=== PATIENT | female | born 1950 | race Caucasian/White ===

== ENCOUNTER 2021-09-16 18:31 | Emergency (ER) | payer MEDICARE, MEDICAID ==
[~2021-09-16] VITALS: Ht 165.1 cm; Wt 56.7 kg
[~2021-09-16 18:31] MED LIST: ASPI-630 PO; ATOR20TA58 PO; HYDR12.575 PO; LISI20TA18 PO; PANT40TA77 PO
--- NOTE | 2021-09-16 18:45 | PHYS DOC ---
Past Medical History Past Medical History: Diverticulitis, High Cholesterol, Hypertension Past Surgical History: Appendectomy, Cholecystectomy, Hysterectomy Smoking Status: Current Every Day Smoker Alcohol Use: None General Adult EDM: Chief Complaint: ABDOMINAL PAIN HPI: HPI: Patient is a 70 year old that has had lower abdominal pain off and on since April 2021. She was admitted at the end of June 2021, had a relatively lengthy inpatient stay for perforated diverticulitis. She was discharged in early to mid July. Pelvic abscess was noted on CT imaging at that time. She was treated conservatively with antibiotics. She was discharged in stable condition, per the notes. She saw general surgery while she was here. She has subsequently followed up with the nurse practitioner at her primary care physician's office, who is reportedly been "managing" all of the subsequent abdominal pain issues. The patient noticed brown, feculent vaginal discharge in July. She reports that the nurse practitioner "swabbed the fluid" and it returned as E. coli. The patient was subsequently referred to gastroenterology services, she does not have an appointment until mid late September for this. She was not referred to general surgery. 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 The patient admits that she is very confused about all of this. 2 days ago, she was prescribed oral vancomycin and oral clindamycin. She has not been referred to gynecology or general surgery services. She denies any fevers or chills. She denies any active or severe pain at present. She reports intermittent nausea and vomiting symptoms, none of which have been present for the past week or so. She reports multiple, soft stools, no diarrhea. No melena or hematochezia. She denies urinary symptoms. She denies chest pain, cough, dyspnea, dizziness, syncope, fall, focal weakness. She has had multiple previous abdominal surgeries including cholecystectomy, appendectomy, hysterectomy and oophorectomy. Review of Systems: Review of Systems: Constitutional: Denies fever or chills. Reports > 60 lb weight loss in the last 10-11 months. Eyes: Denies change in visual acuity. [] HENT: Denies nasal congestion or sore throat. [] Respiratory: Denies cough or shortness of breath. [] Cardiovascular: Denies chest pain or edema. [] GI: Abdominal pain, frequent soft stool, denies nausea and vomiting recently; denies melena, hematochezia, denies history of hematemesis : Denies urinary symptoms. Reports brown vaginal discharge. Musculoskeletal: Denies back pain or joint pain. [] Integument: Denies rash. [] Neurologic: Denies headache, focal weakness or sensory changes. [] Psychiatric: Denies depression or anxiety. [] Heart Score: C/O Chest Pain: No Risk Factors: Risk Factors: DM, Current or recent (<one month) smoker, HTN, HLP, family history of CAD, obesity. Risk Scores: Score 0 - 3: 2.5% MACE over next 6 weeks - Discharge Home Score 4 - 6: 20.3% MACE over next 6 weeks - Admit for Clinical Observation Score 7 - 10: 72.7% MACE over next 6 weeks - Early Invasive Strategies Allergies: Allergies: Allergies Coded Allergies Type Severity Reaction Last Updated Verified codeine Adverse Reaction Intermediate abdominal pain 07/20/21 Yes Physical Exam: PE: Constitutional: She is relatively frail appearing, appears slightly older than stated age, no acute distress, non-toxic appearance. [] HENT: Normocephalic, atraumatic, oropharynx patent and clear, mucous membranes moist Eyes: No conjunctival pallor, no scleral icterus no discharge. [] Neck: Normal range of motion, no tenderness, supple, no stridor. [] Cardiovascular:Heart rate regular rhythm, was 2 radial and +2 posterior tibial pulses bilaterally. No peripheral edema, no cyanosis Lungs & Thorax: Bilateral breath sounds clear to auscultation, no rales, rhonchi or wheezes. Equal chest rise. No evidence of chest wall trauma. Abdomen: Abdomen is soft, nondistended, normal bowel sounds, no focal tenderness to palpation, no palpable mass organomegaly, no flank abdominal ecchymoses, no CVA tenderness, no palpable pulsatile mass, no audible bruit. Skin: Warm, dry, no erythema, no rash. Jaundice. Back: No tenderness, no CVA tenderness. [] Extremities: No tenderness, no cyanosis, no clubbing, ROM intact, no edema. No calf tenderness. Neurologic: Alert and oriented X 3, normal motor function, normal sensory fun ction, no focal deficits noted. [] Psychologic: Mildly anxious, cooperative and pleasant Current Patient Data: Vital Signs: Vital Signs Date Time Temp Pulse Resp B/P (MAP) Pulse Ox O2 Delivery O2 Flow Rate FiO2 09/16/21 18:36 98.2 87 22 223/97 (139) 99 Room Air 98.2 EKG: EKG: [] Radiology/Procedures: Radiology/Procedures: IMAGING REPORT Signed PATIENT: SUZAN CATES ACCOUNT: [id number] : 1950 LOCATION: ER AGE: 70 SEX: F EXAM STATUS: REG ER ORD. PHYSICIAN: TYRONE MUELLER DO REASON: abdominal pain, hx of perf diverticulitis and abscess PROCEDURE: CT ABD PELV W/ IV CONTRST ONLY Exam: CT of abdomen and pelvis with contrast INDICATION: Abdominal pain, history of perforated diverticulitis and abscess TECHNIQUE: Sequential axial images through the abdomen and pelvis obtained following the administration of 75 mL of Isovue-370 IV contrast. Sagittal and coronal reformatted images were reconstructed from the axial data and reviewed. Exposure: One or more of the following in the visualized dose reduction techniques were utilized for this examination: 1. Automated exposure control 2. Adjustment of the MA and/or KV according to patient size 3. Use of iterative of reconstructive technique Comparisons: 08/02/2021 FINDINGS: Heart size is normal. No pericardial effusion. Visualized lung bases are clear. No pleural effusion. Liver, spleen, pancreas, and adrenals are unremarkable. Gallbladder surgically absent. No perinephric inflammation or hydronephrosis. No renal or ureteral calculi are identified. Bladder is partially distended and not well evaluated. Uterus is absent. No abnormal adnexal mass. There is diffuse wall thickening at the sigmoid colon with effacement of adjacent fat planes. Moderate amount stool throughout the colon. Appendix is not identified. Small bowel is unremarkable. No free intra- abdominal air or fluid. No obstruction. Abdominal aorta has a normal course and caliber. Abdominal vascular is patent. No enlarged intra-abdominal lymph nodes are identified. No suspicious osseous lesions or acute fractures. IMPRESSION: Diffuse wall thickening at the sigmoid colon with effacement of adjacent fat planes. Discrete adjacent fluid collection is not identified. Findings favored t o represent colitis. Appearance is is not significantly changed when compared to the study on 08/02/2021 Electronically signed by: Savi Santana MD (09/16/2021 8:43 PM) [facility] DICTATED and SIGNED BY: SAVI SANTANA MD DATE: 09/16/[id number] 0 Course & Med Decision Making: Course & Med Decision Making Pertinent Labs and Imaging studies reviewed. (See chart for details) The patient has been resting comfortably, declined pain medication, she has no pain. Declined antimedics because she is not nauseated. She is a benign, nonsurgical abdominal exam. I am unable to elicit any tenderness on exam at all. Emergency department work-up is remarkable only for mild hypokalemia, she is given oral potassium replacement. CT shows possible colitis, no evidence of abnormal fluid collection, abscess, free air. No description of fistula is made. I went through the PACS system to try to find any CT imaging studies or ultrasound studies she may have had last week, she claimed that she did, I unable to find any. I believe that she most likely did have outpatient imaging study, though it is not currently available in the system. I did explain this to her. I strongly encouraged her to talk with the physician in the office regarding all of her issues. She has previously been seen by general surgery here, I gave her the information for each of the general surgeons here at this facility. I encouraged her to call tomorrow to discuss outpatient follow-up. I also told her to follow-up with gynecology. She may certainly keep her scheduled appointment with GI next month. Currently, there is no indication for further invasive exams, imaging or emergent admission, based on current clinical presentation. She expresses disappointment regarding this. I believe she wishes to expedite the process of consultation, though I explained that if there is no emergency requirement for consultation, it will not be done. I did discuss very strict return precautions with her. She verbalizes understanding. She is discharged in stable condition Dragon Disclaimer: aNtaly Disclaimer: This electronic medical record was generated, in whole or in part, using a voice recognition dictation system. Departure Departure Impression: Primary Impression: Lower abdominal pain Additional Impressions: History of diverticulitis Hypokalemia Disposition: HOME / SELF CARE / HOMELESS Condition: STABLE Referrals: MARCUS GAMIGN MD (PCP) NU ASTORGA MD, STEPHEN J MD PEGHEE, DONALD G Jr. MD WILDER, THOMAS W MD Patient Instructions: Abdominal Pain (Nonspecific) Additional Instructions: Please return to the ER for severe abdominal pain, uncontrolled vomiting, dehydration, if you notice bloody stools, if you notice increase in vaginal disc harge, if you develop a temperature 100.4 or higher, or for any other concerns. Please follow-up with outpatient general surgery and gynecology services. You are provided with multiple doctors information. You may also keep your appointment with GI next month. I recommend you contact your physician at your doctor's office to discuss the differential diagnosis and your clinical condition further. TYRONE MUELLER DO Sep 16, 2021 18:45
[2021-09-16] MEDS ORDERED: IV NORMAL SALINE 1000ML BAG 1,000 ML IV ONE (19:00)
[2021-09-16 19:19] LABS: BASO % 1 % (0-3); EOS # 0.1 x10^3/uL (0.0-0.7); EOS % 1 % (0-3); HEMATOCRIT 29.7 % (36.0-47.0); HEMOGLOBIN 9.4 g/dL (12.0-15.5); LYMPH # 1.6 x10^3/uL (1.0-4.8); LYMPH % 20 % (24-48); MEAN CORPUSCULAR HEMOGLOBIN 23 pg (25-35); MEAN CORPUSCULAR HGB CONC 32 g/dL (31-37); MEAN CORPUSCULAR VOLUME 73 fL (79-100); MONO # 0.6 x10^3/uL (0.0-1.1); MONO % 7 % (0-9); NEUT # 6.1 x10^3/uL (1.8-7.7); NEUT % 72 % (31-73); PLATELET COUNT 539 x10^3/uL (140-400); RED BLOOD COUNT 4.06 x10^6/uL (3.50-5.40); WHITE BLOOD COUNT 8.5 x10^3/uL (4.0-11.0)
[2021-09-16 19:35] LABS: ALBUMIN 2.7 g/dL (3.4-5.0); ALBUMIN/GLOBULIN RATIO 0.6 (1.0-1.7); CALCIUM 8.5 mg/dL (8.5-10.1); CREATININE 0.6 mg/dL (0.6-1.0); GFR 99.1; TOTAL BILIRUBIN 0.4 mg/dL (0.2-1.0)
[2021-09-16] MEDS ORDERED: IOHEXOL 300 MG/ML 100ML VIAL. IV ONE (19:45)
--- NOTE | 2021-09-16 20:45 | RAD ---
Exam: CT of abdomen and pelvis with contrast INDICATION: Abdominal pain, history of perforated diverticulitis and abscess TECHNIQUE: Sequential axial images through the abdomen and pelvis obtained following the administrati on of 75 mL of Isovue-370 IV contrast. Sagittal and coronal reformatted images were reconstructed fro m the axial data and reviewed. Exposure: One or more of the following in the visualized dose reduction techniques were utilized for this examination: 1. Automated exposure control 2. Adjustment of the MA and/or KV according to patient size 3. Use of iterative of reconstructive technique Comparisons: 08/02/2021 FINDINGS: Heart size is normal. No pericardial effusion. Visualized lung bases are clear. No pleural effusion. Liver, spleen, pancreas, and adrenals are unremarkable. Gallbladder surgically absent. No perinephric inflammation or hydronephrosis. No renal or ureteral calculi are identified. Bladder is partially distended and not well evaluated. Uterus is absent. No abnormal adnexal mass. Th ere is diffuse wall thickening at the sigmoid colon with effacement of adjacent fat planes. Moderate amount stool throughout the colon. Appendix is not identified. Small bowel is unremarkable. No free i ntra-abdominal air or fluid. No obstruction. Abdominal aorta has a normal course and caliber. Abdominal vascular is patent. No enlarged intra-abdominal lymph nodes are identified. No suspicious osseous lesions or acute fractures. IMPRESSION: Diffuse wall thickening at the sigmoid colon with effacement of adjacent fat planes. Discrete adjacen t fluid collection is not identified. Findings favored to represent colitis. Appearance is is not sig nificantly changed when compared to the study on 08/02/2021 Electronically signed by: Savi Lara MD (09/16/2021 8:43 PM) [facility]
[2021-09-16 21:07] LABS: BILIRUBIN,URINE NEGATIVE (NEG); CLARITY,URINE CLEAR; COLOR,URINE YELLOW; NITRITE,URINE NEGATIVE (NEG); PROTEIN,URINE NEGATIVE (NEG-TRACE)
[2021-09-16 21:08] LABS: BACTERIA,URINE 0 /HPF (0-FEW); RBC,URINE OCC /HPF (0-2); WBC,URINE OCC /HPF (0-4)
[2021-09-16] MEDS ORDERED: POTASSIUM CHLORIDE 20 MEQ TABLET.ER. PO ONE (21:30)
[2021-09-16 21:32] VITALS: BP 187/74
[2021-09-17] MEDS ORDERED: VANC125C3 PO (20:25)
[2021-09-17] MEDS ORDERED: CLIN-94 PO (20:25)
[2021-09-17] MEDS ORDERED: DOCU-109 PO (20:25)
[2021-09-17] MEDS ORDERED: ALBU2.5V8 IH (20:25)
[2021-09-17] MEDS ORDERED: HYDR-2868 PO (20:25)
[2021-09-17] MEDS ORDERED: POLY17PO29 PO (20:25)
[2021-09-17] MEDS ORDERED: BUDE10.2 IH (20:25)
== END 2021-09-16 21:42 | disposition home or self-care (01) ==
LOC: ER 18:31
DX: R10.30 Lower abdominal pain, unspecified (principal); E87.6 Hypokalemia; E78.00 Pure hypercholesterolemia, unspecified; I10 Essential (primary) hypertension; F17.200 Nicotine dependence, unspecified, uncomplicated; Z90.89 Acquired absence of other organs; Z90.49 Acquired absence of other specified parts of digestive tract; Z90.710 Acquired absence of both cervix and uterus; Z88.5 Allergy status to narcotic agent
CPT/HCPCS: 36415; 74177; 80053; 81001; 83605; 83690; 85025; 99285; J7030; Q9967

== ENCOUNTER 2021-09-17 18:06 | Inpatient (IN) | payer MEDICARE, MEDICAID ==
[~2021-09-17] VITALS: Ht 165.1 cm; Wt 58.1 kg
[2021-09-17 20:15] VITALS: BP 128/53
[2021-09-17] MEDS ORDERED: HYDR-2868 PO (20:25)
[2021-09-17] MEDS ORDERED: BUDE10.2 IH (20:25)
[2021-09-17] MEDS ORDERED: CLIN-94 PO (20:25)
[2021-09-17] MEDS ORDERED: DOCU-109 PO (20:25)
[2021-09-17] MEDS ORDERED: ALBU2.5V8 IH (20:25)
[2021-09-17] MEDS ORDERED: POLY17PO29 PO (20:25)
[2021-09-17] MEDS ORDERED: VANC125C3 PO (20:25)
[2021-09-17] MEDS ORDERED: PIP/TAZO PER PHARMACY MC PRN (20:30)
[2021-09-17] MEDS ORDERED: ALBUTEROL SULFATE 2.5 MG/3 ML NEBU. NEB PRN (20:30)
[2021-09-17] MEDS ORDERED: ACETAMINOPHEN 325 MG TABLET. PO PRN (20:45)
[2021-09-17] MEDS ORDERED: ALBUTEROL SULFATE 2.5 MG/3 ML NEBU. NEB SCH (21:00)
[2021-09-17] MEDS: BUDESONIDE 0.5 MG/2 ML NEBU. NEB SCH (21:40)
[2021-09-17] MEDS: PIPERACILLIN/TAZOBACTAM 3.375 GM in IV NORMAL SALINE 50ML 50 ML IV SCH (22:00)
[2021-09-17] MEDS: IV NORMAL SALINE 1000ML BAG 1,000 ML IV SCH (22:00)
[2021-09-17] MEDS: VANCOMYCIN 125 MG/2.5 ML ORAL SOLUTION. PO SCH (22:13)
[2021-09-17] MEDS: ATORVASTATIN CALCIUM 20 MG TABLET PO SCH (22:13)
[2021-09-17] MEDS: oxyCODONE/APAP 5/325 1 TAB TABLET PO PRN (22:18)
[2021-09-17 23:10] VITALS: BP 114/37
[2021-09-18] MEDS: PIPERACILLIN/TAZOBACTAM 3.375 GM in IV NORMAL SALINE 50ML 50 ML IV SCH ×3 (06:31→18:17)
[2021-09-18 07:00] VITALS: BP 140/38
[2021-09-18] MEDS: BUDESONIDE 0.5 MG/2 ML NEBU. NEB SCH ×2 (07:26→20:00)
[2021-09-18 07:36] LABS: BASO % 0 % (0-3); EOS # 0.2 x10^3/uL (0.0-0.7); EOS % 2 % (0-3); HEMATOCRIT 25.4 % (36.0-47.0); LYMPH # 1.2 x10^3/uL (1.0-4.8); LYMPH % 14 % (24-48); MEAN CORPUSCULAR HEMOGLOBIN 23 pg (25-35); MEAN CORPUSCULAR HGB CONC 32 g/dL (31-37); MEAN CORPUSCULAR VOLUME 74 fL (79-100); MONO # 0.7 x10^3/uL (0.0-1.1); MONO % 8 % (0-9); NEUT # 6.6 x10^3/uL (1.8-7.7); NEUT % 76 % (31-73); PLATELET COUNT 428 x10^3/uL (140-400); RED BLOOD COUNT 3.43 x10^6/uL (3.50-5.40); RED CELL DISTRIBUTION WIDTH 19.3 % (11.5-14.5); WHITE BLOOD COUNT 8.6 x10^3/uL (4.0-11.0)
[2021-09-18 08:00] LABS: ALBUMIN 2.1 g/dL (3.4-5.0); ALBUMIN/GLOBULIN RATIO 0.6 (1.0-1.7); CALCIUM 7.8 mg/dL (8.5-10.1); CREATININE 0.5 mg/dL (0.6-1.0); GFR 122.3; TOTAL BILIRUBIN 0.2 mg/dL (0.2-1.0); TOTAL PROTEIN 5.5 g/dL (6.4-8.2)
[2021-09-18 08:08] LABS: POTASSIUM 2.7 mmol/L (3.5-5.1)
[2021-09-18] MEDS: ASPIRIN CHEWABLE 81 MG TABLET. PO SCH (08:44)
[2021-09-18] MEDS: hydroCHLOROthiazide 12.5 MG CAPSULE PO SCH (08:44)
[2021-09-18] MEDS: hydrALAZINE 25 MG TABLET PO SCH (08:45)
[2021-09-18] MEDS: VANCOMYCIN 125 MG/2.5 ML ORAL SOLUTION. PO SCH ×4 (08:45→22:14)
[2021-09-18] MEDS: PANTOPRAZOLE 40 MG TABLET.DR. PO SCH (08:45)
[2021-09-18] MEDS: LISINOPRIL 20 MG TABLET PO SCH (08:45)
--- NOTE | 2021-09-18 08:47 | PDOC1 ---
History and Physical Date of Admission Date of Admission DATE: 09/18/21 TIME: 08:46 Source Source: Chart review, Patient History of Present Illness History of Present Illness Patient is a 70 year old that has had lower abdominal pain off and on since April 2021. She was admitted 07/21 to 08/03/21, , had a relatively lengthy inpatient stay for MICRO perforated diverticulitis. Pelvic abscess was noted on CT imaging at that time and treated with antibiotics. 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 4 days ago, she was prescribed oral vancomycin and oral clindamycin. Past Medical History Cardiovascular: HTN, Hyperlipidemia GI: Diverticulosis Hepatobiliary: No pertinent hx Psych: No pertinent hx Past Surgical History Past Surgical History She has had multiple previous abdominal surgeries including cholecystectomy, appendectomy, hysterectomy and oophorectomy. Past Surgical History: Other Family History Family History: No Significant, Other Social History Smoke: No ALCOHOL: none Drugs: None Current Medications Current Medications Current Medications Albuterol Sulfate (Ventolin Neb Soln) 2.5 mg PRN Q4HRS PRN NEB WHEEZING; Start 09/17/21 at 20:30; Stop 09/17/21 at 23:16; Status DC Aspirin (Aspirin Chewable) 81 mg DAILY PO Last administered on 09/18/21at 08:44; Start 09/18/21 at 09:00 Atorvastatin Calcium (Lipitor) 20 mg HS PO Last administered on 09/17/21at 22:13; Start 09/17/21 at 21:00 Hydralazine HCl (Apresoline) 25 mg DAILY PO Last administered on 09/18/21at 08:45; Start 09/18/21 at 09:00 Hydrochlorothiazide (Microzide) 12.5 mg DAILY PO Last administered on 09/18/21at 08:44; Start 09/18/21 at 09:00 Lisinopril (Prinivil) 20 mg DAILY PO Last administered on 09/18/21at 08:45; Start 09/18/21 at 09:00 Pantoprazole Sodium (Protonix) 40 mg DAILYAC PO Last administered on 09/18/21at 08:45; Start 09/18/21 at 07:30 Budesonide (Pulmicort) 0.5 mg RTBID NEB Last administered on 09/17/21at 21:40; Start 09/17/21 at 21:00 Vancomycin HCl (Vancomycin Oral Solution) 125 mg [id number] PO Last administered on 09/18/21at 08:45; Start 09/17/21 at 21:00 Ondansetron HCl (Zofran) 4 mg PRN Q6HRS PRN IVP NAUSEA/VOMITING; Start 09/17/21 at 20:30 Oxycodone/ Acetaminophen (Percocet 5/325) 1 tab PRN Q4HRS PRN PO MILD PAIN, 2nd CHOICE Last administered on 09/17/21at 22:18; Start 09/17/21 at 20:30 Oxycodone/ Acetaminophen (Percocet 5/325) 2 tab PRN Q4HRS PRN PO MODERATE PAIN, SEVERE PAIN; Start 09/17/21 at 20:30 Piperacillin Sod/ Tazobactam Sod (Zosyn Per Pharmacy) 1 each PRN DAILY PRN MC SEE COMMENTS; Start 09/17/21 at 20:30 Sodium Chloride 1,000 ml @ 75 mls/hr [id number] IV Last administered on 09/17/21at 22:00; Start 09/17/21 at 21:00 Acetaminophen (Tylenol) 650 mg PRN Q6HRS PRN PO MILD PAIN / TEMP > 100.3'F; Start 09/17/21 at 20:45 Albuterol Sulfate (Ventolin Neb Soln) 2.5 mg RTQID NEB Last administered on 08/25 12/12at 21:40; Start 09/17/21 at 21:00; Stop 09/17/21 at 23:16; Status DC Piperacillin Sod/ Tazobactam Sod 3.375 gm/Sodium Chloride 50 ml @ 100 mls/hr Q6HRS IV Last administered on 09/18/21at 06:31; Start 09/17/21 at 21:00 Potassium Chloride/Water 100 ml @ 100 mls/hr Q1H IV ; Start 09/18/21 at 08:45; Stop 09/18/21 at 10:44; Status UNV Magnesium Sulfate 50 ml @ 25 mls/hr 1X ONCE IV ; Start 09/18/21 at 08:45; Stop 09/18/21 at 10:44; Status UNV Active Scripts Active Pantoprazole Sodium (Pantoprazole Sodium) 40 Mg Tablet.dr 40 Mg PO DAILYAC 30 Days Reported Clindamycin Hcl 300 Mg Capsule 300 Mg PO TID Vancomycin Hcl 125 Mg Capsule 125 Mg PO QID Symbicort 160-4.5 Mcg Inhaler (Budesonide/Formoterol Fumarate) 10.2 Gm Hfa.aer.ad 2 Puff IH BID Proair Hfa Inhaler (Albuterol Sulfate) 8.5 Gm Hfa.aer.ad 2 Puff IH PRN Q4-6HRS PRN 21 Days Hydralazine Hcl 25 Mg Tablet 25 Mg PO DAILY Miralax (Polyethylene Glycol 3350) 17 Gm Powd.pack 1 Pkt PO DAILY Colace (Docusate Sodium) 100 Mg Capsule 1 Cap PO BID 15 Days Atorvastatin Calcium 20 Mg Tablet 20 Mg PO HS Hydrochlorothiazide Capsule (Hydrochlorothiazide) 12.5 Mg Capsule 12.5 Mg PO DAILY Lisinopril 20 Mg Tablet 20 Mg PO DAILY Aspirin 81 Mg Tab.chew 1 Tab PO DAILY Allergies Allergies: Coded Allergies: No Known Medication Allergies (Verified Allergy, Unknown, 09/17/21) codeine (Verified Adverse Reaction, Intermediate, abdominal pain, 07/20/21) ROS General: YES: Chills, Fatigue PSYCHOLOGICAL ROS: No: Anxiety, Behavioral Disorder, Concentration difficultie, Decreased libido, Depression, Disorientation, Hallucinations, Hostility, Irritablity, Memory difficulties, Mood Swings, Obsessive thoughts, Physical abuse, Sexual abuse, Sleep disturbances, Suicidal ideation, Other Eyes: No Blurry vision, No Decreased vision, No Double vision, No Dry eyes, No Excessive tearing, No Eye Pain, No Itchy Eyes, No Loss of vision, No Photophobia, No Scotomata, No Uses contacts, No Uses glasses, No Other HEENT: No: Heacaches, Visual Changes, Hearing change, Nasal congestion, Nasal discharge, Oral lesions, Sinus pain, Sore Throat, Epistaxis, Sneezing, Snoring, Tinnitus, Vertigo, Vocal changes, Other Respiratory: No: Cough, Hemoptysis, Orthopnea, Pleuritic Pain, Shortness of breath, SOB with excertion, Sputum Changes, Stridor, Tachypnea, Wheezing, Other Cardiovascular: No Chest Pain, No Palpitations, No Orthopnea, No Paroxysmal Noc. Dyspnea, No Edema, No Lt Headedness, No Other Gastrointestinal: Yes Nausea, Yes Abdominal Pain Genitourinary: YES Other (brown discharge from vagina); No Dysuria, No Frequency, No Incontinence, No Hematuria, No Retention, No Discharge, No Urgency, No Pain, No Flank Pain, No , No , No , No , No , No , No Musculoskeletal: No Gait Disturbance, No Joint Pain, No Joint Stiffness, No Joint Swelling, No Muscle Pain, No Muscular Weakness, No Pain In:, No Swelling In:, No Other Neurological: No Behavorial Changes, No Bowel/Bladder ControlChng, No Confusion, No Dizziness, No Gait Disturbance, No Headaches, No Impaired Coord/balance, No Memory Loss, No Numbness/Tingling, No Seizures, No Speech Problems, No Tremors, No Visual Changes, No Weakness, No Other Skin: Yes Dry Skin; No Eczema, No Hair Changes, No Lumps, No Mole Changes, No Mottling, No Nail Changes, No Pruritus, No Rash, No Skin Lesion Changes, No Other, No Acne Physical Exam General: Alert, Oriented X3, Cooperative, mild distress HEENT: PERRLA Abdomen: Soft (mild tender, ) Rectal Exam: not examined Extremities: No cyanosis, No edema, Normal pulses Skin: No significant lesion Neuro: Normal speech, Normal tone, Sensation intact Psych/Mental Status: Mental status NL, Mood NL Vitals Vitals Vital Signs Date Time Temp Pulse Resp B/P (MAP) Pulse Ox O2 Delivery O2 Flow Rate FiO2 09/18/21 08:45 67 140/38 09/17/21 23:10 98.8 14 94 Room Air 98.8 Labs Labs Laboratory Tests Test 09/18/21 06:30 White Blood Count 8.6 x10^3/uL (4.0-11.0) Red Blood Count 3.43 x10^6/uL (3.50-5.40) Hemoglobin 8.0 g/dL (12.0-15.5) Hematocrit 25.4 % (36.0-47.0) Mean Corpuscular Volume 74 fL (79-100) Mean Corpuscular Hemoglobin 23 pg (25-35) Mean Corpuscular Hemoglobin Concent 32 g/dL (31-37) Red Cell Distribution Width 19.3 % (11.5-14.5) Platelet Count 428 x10^3/uL (140-400) Neutrophils (%) (Auto) 76 % (31-73) Lymphocytes (%) (Auto) 14 % (24-48) Monocytes (%) (Auto) 8 % (0-9) Eosinophils (%) (Auto) 2 % (0-3) Basophils (%) (Auto) 0 % (0-3) Neutrophils # (Auto) 6.6 x10^3/uL (1.8-7.7) Lymphocytes # (Auto) 1.2 x10^3/uL (1.0-4.8) Monocytes # (Auto) 0.7 x10^3/uL (0.0-1.1) Eosinophils # (Auto) 0.2 x10^3/uL (0.0-0.7) Basophils # (Auto) 0.0 x10^3/uL (0.0-0.2) Sodium Level 145 mmol/L (136-145) Potassium Level 2.7 mmol/L (3.5-5.1) Chloride Level 108 mmol/L (98-107) Carbon Dioxide Level 28 mmol/L (21-32) Anion Gap 9 (6-14) Blood Urea Nitrogen 6 mg/dL (7-20) Creatinine 0.5 mg/dL (0.6-1.0) Estimated GFR (Cockcroft-Gault) 122.3 BUN/Creatinine Ratio 12 (6-20) Glucose Level 76 mg/dL (70-99) Calcium Level 7.8 mg/dL (8.5-10.1) Total Bilirubin 0.2 mg/dL (0.2-1.0) Aspartate Amino Transf (AST/SGOT) 11 U/L (15-37) Alanine Aminotransferase (ALT/SGPT) 8 U/L (14-59) Alkaline Phosphatase 82 U/L (46-116) Total Protein 5.5 g/dL (6.4-8.2) Albumin 2.1 g/dL (3.4-5.0) Albumin/Globulin Ratio 0.6 (1.0-1.7) Laboratory Tests Test 09/18/21 06:30 White Blood Count 8.6 x10^3/uL (4.0-11.0) Red Blood Count 3.43 x10^6/uL (3.50-5.40) Hemoglobin 8.0 g/dL (12.0-15.5) Hematocrit 25.4 % (36.0-47.0) Mean Corpuscular Volume 74 fL (79-100) Mean Corpuscular Hemoglobin 23 pg (25-35) Mean Corpuscular Hemoglobin Concent 32 g/dL (31-37) Red Cell Distribution Width 19.3 % (11.5-14.5) Platelet Count 428 x10^3/uL (140-400) Neutrophils (%) (Auto) 76 % (31-73) Lymphocytes (%) (Auto) 14 % (24-48) Monocytes (%) (Auto) 8 % (0-9) Eosinophils (%) (Auto) 2 % (0-3) Basophils (%) (Auto) 0 % (0-3) Neutrophils # (Auto) 6.6 x10^3/uL (1.8-7.7) Lymphocytes # (Auto) 1.2 x10^3/uL (1.0-4.8) Monocytes # (Auto) 0.7 x10^3/uL (0.0-1.1) Eosinophils # (Auto) 0.2 x10^3/uL (0.0-0.7) Basophils # (Auto) 0.0 x10^3/uL (0.0-0.2) Sodium Level 145 mmol/L (136-145) Potassium Level 2.7 mmol/L (3.5-5.1) Chloride Level 108 mmol/L (98-107) Carbon Dioxide Level 28 mmol/L (21-32) Anion Gap 9 (6-14) Blood Urea Nitrogen 6 mg/dL (7-20) Creatinine 0.5 mg/dL (0.6-1.0) Estimated GFR (Cockcroft-Gault) 122.3 BUN/Creatinine Ratio 12 (6-20) Glucose Level 76 mg/dL (70-99) Calcium Level 7.8 mg/dL (8.5-10.1) Total Bilirubin 0.2 mg/dL (0.2-1.0) Aspartate Amino Transf (AST/SGOT) 11 U/L (15-37) Alanine Aminotransferase (ALT/SGPT) 8 U/L (14-59) Alkaline Phosphatase 82 U/L (46-116) Total Protein 5.5 g/dL (6.4-8.2) Albumin 2.1 g/dL (3.4-5.0) Albumin/Globulin Ratio 0.6 (1.0-1.7) VTE Prophylaxis Ordered VTE Prophylaxis Devices: No VTE Pharmacological Prophylaxi: Yes Assessment/Plan Assessment/Plan CT scan 09/16 Diffuse wall thickening at the sigmoid colon with effacement of adjacent fat planes. Discrete adjacent fluid collection is not identified. Findings favored to represent colitis. Appearance is is not significantly changed when compared to the study on 08/02/2021 Acute abdominal pain secondary to diverticulitis with microperforation Microcytic anemia - not DEWAYNE Hypokalemia - due to poor po Severe protein calorie malnutrition - likely due to diverticulitis HLD - HTN - General surgery consult, automated manufacturing instructor consult IV abx Justifications for Admission Other Justification Perforated diverticulitis CHRIS ROLLE MD Sep 18, 2021 08:47
[2021-09-18] MEDS: oxyCODONE/APAP 5/325 1 TAB TABLET PO PRN ×4 (08:49→20:49)
[2021-09-18] MEDS ORDERED: MAGNESIUM SULFATE 2GM 50 ML IV ONE (09:30)
[2021-09-18 11:00] VITALS: BP 121/32
[2021-09-18] MEDS: POTASSIUM CHLORIDE 10MEQ 100 ML IV SCH ×2 (11:18→13:22)
--- NOTE | 2021-09-18 11:22 | PDOC2 ---
CONSULT Date of Consult Date of Consult DATE: 09/18/21 TIME: 11:21 Reason for Consult Reason for Consult: possible fistula 70y G0 who was admitted for a possible fistula. The pt has lower abd pain on and off since 04/2021. Over the same period she has had a change her BMs, more loose. The pt was admitted at [facility] b/t 07/21-08/03 for abd pain 2/2 diverticulitis with microperforation. She was txed with IV abx and was d/nila. Since her d/c she has underwent multiple CT. On 08/10 she began to have brown d/c from her vagina. Initially they thought it was related to all the abx she was given during her hospital course, so she was given antifungal. The output only worsened over the course of a wk. When it was cultured by her PCP she reports that it returned as E. Coli. A CT performed on 09/13 revealed the followin. Increased along segment sigmoid colonic wall thickening with adjacent fat stranding and infiltration extending to adjacent thick-walled small bowel. Findings may relate to infectious or inflammatory colitis with fistulous claudication to adjacent small bowel. Recommend follow-up imaging and/or direct visualization after treatment to exclude underlying malignancy. 2. Small adjacent extraluminal gas concerning for contained microperforations. 3. Small fluid and gas collection anterior to the sigmoid colon, may represent small abscess or a component of fistula to small bowel. The pt was told after this finding by her PCP she needed to see doctors for this. She does not recall any referrals being made to this point. Also this CT does not illustrate a rectovaginal fistula, but looks like a connection b/t the small bowel and the sigmoid colon. It is likely with her multiple abd surgery and diverticulitis that she potentially could have more than one fistula. She has been on Vanc and Clinda. Her most recent CT on 09/16 revealed the following: Diffuse wall thickening at the sigmoid colon with effacement of adjacent fat planes. Discrete adjacent fluid collection is not identified. Findings favored to represent colitis. Appearance is not significantly changed when compared to the study on 08/02/2021. 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: LMP ~95 with KAN/BSO H/o ERT for ~5yrs (patch) Menarche 13yo / regular / menopause ~43yo SH: 1PPD, no EtOH FH: noncontributory Past Medical History Cardiovascular: HTN, Hyperlipidemia GI: Diverticulosis Past Surgical History Past Surgical History: Other Family History Family History: Other Social History ALCOHOL: none Drugs: None Lives: Alone Current Medications Current Medications Current Medications Albuterol Sulfate (Ventolin Neb Soln) 2.5 mg PRN Q4HRS PRN NEB WHEEZING; Start 09/17/21 at 20:30; Stop 09/17/21 at 23:16; Status DC Aspirin (Aspirin Chewable) 81 mg DAILY PO Last administered on 09/18/21at 08:44; Start 09/18/21 at 09:00 Atorvastatin Calcium (Lipitor) 20 mg HS PO Last administered on 09/17/21at 22:13; Start 09/17/21 at 21:00 Hydralazine HCl (Apresoline) 25 mg DAILY PO Last administered on 09/18/21at 08:45; Start 09/18/21 at 09:00 Hydrochlorothiazide (Microzide) 12.5 mg DAILY PO Last administered on 09/18/21at 08:44; Start 09/18/21 at 09:00 Lisinopril (Prinivil) 20 mg DAILY PO Last administered on 09/18/21at 08:45; Start 09/18/21 at 09:00 Pantoprazole Sodium (Protonix) 40 mg DAILYAC PO Last administered on 09/18/21at 08:45; Start 09/18/21 at 07:30 Budesonide (Pulmicort) 0.5 mg RTBID NEB Last administered on 09/17/21at 21:40; Start 09/17/21 at 21:00 Vancomycin HCl (Vancomycin Oral Solution) 125 mg [id number] PO Last administered on 09/18/21at 08:45; Start 09/17/21 at 21:00 Ondansetron HCl (Zofran) 4 mg PRN Q6HRS PRN IVP NAUSEA/VOMITING; Start 09/17/21 at 20:30 Oxycodone/ Acetaminophen (Percocet 5/325) 1 tab PRN Q4HRS PRN PO MILD PAIN, 2nd CHOICE Last administered on 09/18/21at 08:49; Start 09/17/21 at 20:30 Oxycodone/ Acetaminophen (Percocet 5/325) 2 tab PRN Q4HRS PRN PO MODERATE PAIN, SEVERE PAIN; Start 09/17/21 at 20:30 Piperacillin Sod/ Tazobactam Sod (Zosyn Per Pharmacy) 1 each PRN DAILY PRN [facility] SEE COMMENTS; Start 09/17/21 at 20:30 Sodium Chloride 1,000 ml @ 75 mls/hr [id number] IV Last administered on 09/17/21at 22:00; Start 09/17/21 at 21:00 Acetaminophen (Tylenol) 650 mg PRN Q6HRS PRN PO MILD PAIN / TEMP > 100.3'F; Start 09/17/21 at 20:45 Albuterol Sulfate (Ventolin Neb Soln) 2.5 mg RTQID NEB Last administered on 09/17/21at 21:40; Start 09/17/21 at 21:00; Stop 09/17/21 at 23:16; Status DC Piperacillin Sod/ Tazobactam Sod 3.375 gm/Sodium Chloride 50 ml @ 100 mls/hr Q6HRS IV Last administered on 09/18/21at 06:31; Start 09/17/21 at 21:00 Potassium Chloride/Water 100 ml @ 100 mls/hr Q1H IV Last administered on 09/18/21at 11:18; Start 09/18/21 at 09:30; Stop 09/18/21 at 11:29 Magnesium Sulfate 50 ml @ 25 mls/hr 1X ONCE IV ; Start 09/18/21 at 09:30; Stop 09/18/21 at 11:29 Active Scripts Active Pantoprazole Sodium (Pantoprazole Sodium) 40 Mg Tablet.dr 40 Mg PO DAILYAC 30 Days Reported Clindamycin Hcl 300 Mg Capsule 300 Mg PO TID Vancomycin Hcl 125 Mg Capsule 125 Mg PO QID Symbicort 160-4.5 Mcg Inhaler (Budesonide/Formoterol Fumarate) 10.2 Gm Hfa.aer.ad 2 Puff IH BID Proair Hfa Inhaler (Albuterol Sulfate) 8.5 Gm Hfa.aer.ad 2 Puff IH PRN Q4-6HRS PRN 21 Days Hydralazine Hcl 25 Mg Tablet 25 Mg PO DAILY Miralax (Polyethylene Glycol 3350) 17 Gm Powd.pack 1 Pkt PO DAILY Colace (Docusate Sodium) 100 Mg Capsule 1 Cap PO BID 15 Days Atorvastatin Calcium 20 Mg Tablet 20 Mg PO HS Hydrochlorothiazide Capsule (Hydrochlorothiazide) 12.5 Mg Capsule 12.5 Mg PO DAILY Lisinopril 20 Mg Tablet 20 Mg PO DAILY Aspirin 81 Mg Tab.chew 1 Tab PO DAILY Allergies Allergies: Coded Allergies: No Known Medication Allergies (Verified Allergy, Unknown, 09/17/21) codeine (Verified Adverse Reaction, Intermediate, abdominal pain, 07/20/21) Physical Exam General: Alert, Oriented X3, Cooperative, No acute distress HEENT: PERRLA, Mucous membr. moist/pink Lungs: Clear to auscultation, Normal air movement Heart: Regular rate, Normal S1, Normal S2, No murmurs Abdomen: Normal bowel sounds, Soft, No tenderness, No hepatosplenomegaly, No masses Extremities: No clubbing, No cyanosis, No edema, Normal pulses, No tenderness/swelling Skin: No rashes, No breakdown Neuro: Normal gait, Normal speech, Normal tone, Sensation intact, Reflexes 2+ Psych/Mental Status: Mental status NL, Mood NL Vitals VITALS Vital Signs Date Time Temp Pulse Resp B/P (MAP) Pulse Ox O2 Delivery O2 Flow Rate FiO2 09/18/21 09:19 Room Air 09/18/21 08:45 67 140/38 09/18/21 07:00 98.6 20 94 98.6 Labs Labs Laboratory Tests Test 09/18/21 06:30 White Blood Count 8.6 x10^3/uL (4.0-11.0) Red Blood Count 3.43 x10^6/uL (3.50-5.40) Hemoglobin 8.0 g/dL (12.0-15.5) Hematocrit 25.4 % (36.0-47.0) Mean Corpuscular Volume 74 fL (79-100) Mean Corpuscular Hemoglobin 23 pg (25-35) Mean Corpuscular Hemoglobin Concent 32 g/dL (31-37) Red Cell Distribution Width 19.3 % (11.5-14.5) Platelet Count 428 x10^3/uL (140-400) Neutrophils (%) (Auto) 76 % (31-73) Lymphocytes (%) (Auto) 14 % (24-48) Monocytes (%) (Auto) 8 % (0-9) Eosinophils (%) (Auto) 2 % (0-3) Basophils (%) (Auto) 0 % (0-3) Neutrophils # (Auto) 6.6 x10^3/uL (1.8-7.7) Lymphocytes # (Auto) 1.2 x10^3/uL (1.0-4.8) Monocytes # (Auto) 0.7 x10^3/uL (0.0-1.1) Eosinophils # (Auto) 0.2 x10^3/uL (0.0-0.7) Basophils # (Auto) 0.0 x10^3/uL (0.0-0.2) Sodium Level 145 mmol/L (136-145) Potassium Level 2.7 mmol/L (3.5-5.1) Chloride Level 108 mmol/L (98-107) Carbon Dioxide Level 28 mmol/L (21-32) Anion Gap 9 (6-14) Blood Urea Nitrogen 6 mg/dL (7-20) Creatinine 0.5 mg/dL (0.6-1.0) Estimated GFR (Cockcroft-Gault) 122.3 BUN/Creatinine Ratio 12 (6-20) Glucose Level 76 mg/dL (70-99) Calcium Level 7.8 mg/dL (8.5-10.1) Iron Level 14 ug/dL (50-170) Total Iron Binding Capacity 184 ug/dL (250-450) Iron Saturation 8 % (15-34) Total Bilirubin 0.2 mg/dL (0.2-1.0) Aspartate Amino Transf (AST/SGOT) 11 U/L (15-37) Alanine Aminotransferase (ALT/SGPT) 8 U/L (14-59) Alkaline Phosphatase 82 U/L (46-116) Total Protein 5.5 g/dL (6.4-8.2) Albumin 2.1 g/dL (3.4-5.0) Albumin/Globulin Ratio 0.6 (1.0-1.7) Laboratory Tests Test 09/18/21 06:30 White Blood Count 8.6 x10^3/uL (4.0-11.0) Red Blood Count 3.43 x10^6/uL (3.50-5.40) Hemoglobin 8.0 g/dL (12.0-15.5) Hematocrit 25.4 % (36.0-47.0) Mean Corpuscular Volume 74 fL (79-100) Mean Corpuscular Hemoglobin 23 pg (25-35) Mean Corpuscular Hemoglobin Concent 32 g/dL (31-37) Red Cell Distribution Width 19.3 % (11.5-14.5) Platelet Count 428 x10^3/uL (140-400) Neutrophils (%) (Auto) 76 % (31-73) Lymphocytes (%) (Auto) 14 % (24-48) Monocytes (%) (Auto) 8 % (0-9) Eosinophils (%) (Auto) 2 % (0-3) Basophils (%) (Auto) 0 % (0-3) Neutrophils # (Auto) 6.6 x10^3/uL (1.8-7.7) Lymphocytes # (Auto) 1.2 x10^3/uL (1.0-4.8) Monocytes # (Auto) 0.7 x10^3/uL (0.0-1.1) Eosinophils # (Auto) 0.2 x10^3/uL (0.0-0.7) Basophils # (Auto) 0.0 x10^3/uL (0.0-0.2) Sodium Level 145 mmol/L (136-145) Potassium Level 2.7 mmol/L (3.5-5.1) Chloride Level 108 mmol/L (98-107) Carbon Dioxide Level 28 mmol/L (21-32) Anion Gap 9 (6-14) Blood Urea Nitrogen 6 mg/dL (7-20) Creatinine 0.5 mg/dL (0.6-1.0) Estimated GFR (Cockcroft-Gault) 122.3 BUN/Creatinine Ratio 12 (6-20) Glucose Level 76 mg/dL (70-99) Calcium Level 7.8 mg/dL (8.5-10.1) Iron Level 14 ug/dL (50-170) Total Iron Binding Capacity 184 ug/dL (250-450) Iron Saturation 8 % (15-34) Total Bilirubin 0.2 mg/dL (0.2-1.0) Aspartate Amino Transf (AST/SGOT) 11 U/L (15-37) Alanine Aminotransferase (ALT/SGPT) 8 U/L (14-59) Alkaline Phosphatase 82 U/L (46-116) Total Protein 5.5 g/dL (6.4-8.2) Albumin 2.1 g/dL (3.4-5.0) Albumin/Globulin Ratio 0.6 (1.0-1.7) Assessment/Plan Assessment/Plan Assessment: 70y G0 who was admitted for a possible fistula Recommendation: 1.) Rectovaginal fistula based on hx. May benefit from exam under anesthesia to help identify the location. Not demonstrated on imaging. Her h/o d iverticulosis and recent perf are risk factors for the fistula forming. For women with small fistulas and minimal symptoms, nonsurgical management is appropriate. Optimizing the patient's bowel function, particularly controlling diarrhea, is beneficial. However, for the majority of patients with anovaginal or rectovaginal fistulas, the symptoms are intolerable. Thus, surgical repair is indicated. Repair of a rectovaginal fistula would be outside my scope. If it can not be done my Gen Surg, she may need a referral to specialists like Urogyn or GynOnc. 2.) Potential other colonic fistula multiple abdominal surgery and diverticu litis potential causes. Has only been demonstrated on one imaging, but also the potential to be abscess. 3.) Diverticulosis recent hospitalization for microperforation. Does not seem to be causing any acute issues at this time. 4.) H/o KAN/BSO sounds like for benign 5.) H/o ERT 6.) HTN per primary team 7.) Tob use 8.) Will cont to follow MAXIMO MELGAR MD Sep 18, 2021 11:22
[2021-09-18] MEDS: IV NORMAL SALINE 1000ML BAG 1,000 ML IV SCH ×2 (13:22→23:40)
--- NOTE | 2021-09-18 14:52 | PDOC2 ---
CONSULT Date of Consult Date of Consult DATE: 09/18/21 TIME: 14:47 Reason for Consult Reason for Consult: colovaginal fistula, perforated diverticulitis Referring Physician Referring Physician: Dr. Hector Identification/Chief Complaint Chief Complaint abd pain, vaginal d/c Source Source: Chart review, Patient History of Present Illness Reason for Visit: 70 yo F with history of perforated diverticulitis, treated conservatively. Pt has developed lower abd pain and vaginal d/c. Past Medical History Cardiovascular: HTN, Hyperlipidemia GI: Diverticulosis Past Surgical History Past Surgical History: Appendectomy, Cholecystectomy, Hysterectomy, Other Family History Family History: Other Social History 1 pack per day ALCOHOL: none Drugs: None Lives: Alone Current Medications Current Medications Current Medications Albuterol Sulfate (Ventolin Neb Soln) 2.5 mg PRN Q4HRS PRN NEB WHEEZING; Start 09/17/21 at 20:30; Stop 09/17/21 at 23:16; Status DC Aspirin (Aspirin Chewable) 81 mg DAILY PO Last administered on 09/18/21at 08:44; Start 09/18/21 at 09:00 Atorvastatin Calcium (Lipitor) 20 mg HS PO Last administered on 09/17/21at 22:13; Start 09/17/21 at 21:00 Hydralazine HCl (Apresoline) 25 mg DAILY PO Last administered on 09/18/21at 08:45; Start 09/18/21 at 09:00 Hydrochlorothiazide (Microzide) 12.5 mg DAILY PO Last administered on 09/18/21at 08:44; Start 09/18/21 at 09:00 Lisinopril (Prinivil) 20 mg DAILY PO Last administered on 09/18/21at 08:45; Start 09/18/21 at 09:00 Pantoprazole Sodium (Protonix) 40 mg DAILYAC PO Last administered on 09/18/21at 08:45; Start 09/18/21 at 07:30 Budesonide (Pulmicort) 0.5 mg RTBID NEB Last administered on 09/17/21at 21:40; Start 09/17/21 at 21:00 Vancomycin HCl (Vancomycin Oral Solution) 125 mg [id number] PO Last administered on 09/18/21at 13:22; Start 09/17/21 at 21:00 Ondansetron HCl (Zofran) 4 mg PRN Q6HRS PRN IVP NAUSEA/VOMITING; Start 09/17/21 at 20:30 Oxycodone/ Acetaminophen (Percocet 5/325) 1 tab PRN Q4HRS PRN PO MILD PAIN, 2nd CHOICE Last administered on 09/18/21at 13:26; Start 09/17/21 at 20:30 Oxycodone/ Acetaminophen (Percocet 5/325) 2 tab PRN Q4HRS PRN PO MODERATE PAIN, SEVERE PAIN; Start 09/17/21 at 20:30 Piperacillin Sod/ Tazobactam Sod (Zosyn Per Pharmacy) 1 each PRN DAILY PRN MC SEE COMMENTS; Start 09/17/21 at 20:30 Sodium Chloride 1,000 ml @ 75 mls/hr [id number] IV Last administered on 09/18/21at 13:22; Start 09/17/21 at 21:00 Acetaminophen (Tylenol) 650 mg PRN Q6HRS PRN PO MILD PAIN / TEMP > 100.3'F; Start 09/17/21 at 20:45 Albuterol Sulfate (Ventolin Neb Soln) 2.5 mg RTQID NEB Last administered on at 21:40; Start 09/17/21 at 21:00; Stop 09/17/21 at 23:16; Status DC Piperacillin Sod/ Tazobactam Sod 3.375 gm/Sodium Chloride 50 ml @ 100 mls/hr Q6HRS IV Last administered on 09/18/21at 12:00; Start 09/17/21 at 21:00 Potassium Chloride/Water 100 ml @ 100 mls/hr Q1H IV Last administered on 09/18/21at 13:22; Start 09/18/21 at 09:30; Stop 09/18/21 at 11:29; Status DC Magnesium Sulfate 50 ml @ 25 mls/hr 1X ONCE IV ; Start 09/18/21 at 09:30; Stop 09/18/21 at 11:29; Status DC Active Scripts Active Pantoprazole Sodium (Pantoprazole Sodium) 40 Mg Tablet.dr 40 Mg PO DAILYAC 30 Days Reported Clindamycin Hcl 300 Mg Capsule 300 Mg PO TID Vancomycin Hcl 125 Mg Capsule 125 Mg PO QID Symbicort 160-4.5 Mcg Inhaler (Budesonide/Formoterol Fumarate) 10.2 Gm Hfa.aer.ad 2 Puff IH BID Proair Hfa Inhaler (Albuterol Sulfate) 8.5 Gm Hfa.aer.ad 2 Puff IH PRN Q4-6HRS PRN 21 Days Hydralazine Hcl 25 Mg Tablet 25 Mg PO DAILY Miralax (Polyethylene Glycol 3350) 17 Gm Powd.pack 1 Pkt PO DAILY Colace (Docusate Sodium) 100 Mg Capsule 1 Cap PO BID 15 Days Atorvastatin Calcium 20 Mg Tablet 20 Mg PO HS Hydrochlorothiazide Capsule (Hydrochlorothiazide) 12.5 Mg Capsule 12.5 Mg PO DAILY Lisinopril 20 Mg Tablet 20 Mg PO DAILY Aspirin 81 Mg Tab.chew 1 Tab PO DAILY Allergies Allergies: Coded Allergies: No Known Medication Allergies (Verified Allergy, Unknown, 09/17/21) codeine (Verified Adverse Reaction, Intermediate, abdominal pain, 07/20/21) ROS Gastrointestinal: Yes Abdominal Pain Genitourinary: YES Discharge Physical Exam General: Alert, Oriented X3, Cooperative, mild distress HEENT: Atraumatic Lungs: Normal air movement Abdomen: Soft, Other (TTP suprapubic) Extremities: No clubbing, No cyanosis Skin: No rashes, No breakdown Neuro: Normal speech, Sensation intact Psych/Mental Status: Mental status NL, Mood NL Vitals VITALS Vital Signs Date Time Temp Pulse Resp B/P (MAP) Pulse Ox O2 Delivery O2 Flow Rate FiO2 09/18/21 13:26 Room Air 09/18/21 11:00 98.5 67 20 121/32 (61) 96 98.5 Labs Labs Laboratory Tests Test 09/18/21 06:30 White Blood Count 8.6 x10^3/uL (4.0-11.0) Red Blood Count 3.43 x10^6/uL (3.50-5.40) Hemoglobin 8.0 g/dL (12.0-15.5) Hematocrit 25.4 % (36.0-47.0) Mean Corpuscular Volume 74 fL (79-100) Mean Corpuscular Hemoglobin 23 pg (25-35) Mean Corpuscular Hemoglobin Concent 32 g/dL (31-37) Red Cell Distribution Width 19.3 % (11.5-14.5) Platelet Count 428 x10^3/uL (140-400) Neutrophils (%) (Auto) 76 % (31-73) Lymphocytes (%) (Auto) 14 % (24-48) Monocytes (%) (Auto) 8 % (0-9) Eosinophils (%) (Auto) 2 % (0-3) Basophils (%) (Auto) 0 % (0-3) Neutrophils # (Auto) 6.6 x10^3/uL (1.8-7.7) Lymphocytes # (Auto) 1.2 x10^3/uL (1.0-4.8) Monocytes # (Auto) 0.7 x10^3/uL (0.0-1.1) Eosinophils # (Auto) 0.2 x10^3/uL (0.0-0.7) Basophils # (Auto) 0.0 x10^3/uL (0.0-0.2) Sodium Level 145 mmol/L (136-145) Potassium Level 2.7 mmol/L (3.5-5.1) Chloride Level 108 mmol/L (98-107) Carbon Dioxide Level 28 mmol/L (21-32) Anion Gap 9 (6-14) Blood Urea Nitrogen 6 mg/dL (7-20) Creatinine 0.5 mg/dL (0.6-1.0) Estimated GFR (Cockcroft-Gault) 122.3 BUN/Creatinine Ratio 12 (6-20) Glucose Level 76 mg/dL (70-99) Calcium Level 7.8 mg/dL (8.5-10.1) Iron Level 14 ug/dL (50-170) Total Iron Binding Capacity 184 ug/dL (250-450) Iron Saturation 8 % (15-34) Total Bilirubin 0.2 mg/dL (0.2-1.0) Aspartate Amino Transf (AST/SGOT) 11 U/L (15-37) Alanine Aminotransferase (ALT/SGPT) 8 U/L (14-59) Alkaline Phosphatase 82 U/L (46-116) Total Protein 5.5 g/dL (6.4-8.2) Albumin 2.1 g/dL (3.4-5.0) Albumin/Globulin Ratio 0.6 (1.0-1.7) Laboratory Tests Test 09/18/21 06:30 White Blood Count 8.6 x10^3/uL (4.0-11.0) Red Blood Count 3.43 x10^6/uL (3.50-5.40) Hemoglobin 8.0 g/dL (12.0-15.5) Hematocrit 25.4 % (36.0-47.0) Mean Corpuscular Volume 74 fL (79-100) Mean Corpuscular Hemoglobin 23 pg (25-35) Mean Corpuscular Hemoglobin Concent 32 g/dL (31-37) Red Cell Distribution Width 19.3 % (11.5-14.5) Platelet Count 428 x10^3/uL (140-400) Neutrophils (%) (Auto) 76 % (31-73) Lymphocytes (%) (Auto) 14 % (24-48) Monocytes (%) (Auto) 8 % (0-9) Eosinophils (%) (Auto) 2 % (0-3) Basophils (%) (Auto) 0 % (0-3) Neutrophils # (Auto) 6.6 x10^3/uL (1.8-7.7) Lymphocytes # (Auto) 1.2 x10^3/uL (1.0-4.8) Monocytes # (Auto) 0.7 x10^3/uL (0.0-1.1) Eosinophils # (Auto) 0.2 x10^3/uL (0.0-0.7) Basophils # (Auto) 0.0 x10^3/uL (0.0-0.2) Sodium Level 145 mmol/L (136-145) Potassium Level 2.7 mmol/L (3.5-5.1) Chloride Level 108 mmol/L (98-107) Carbon Dioxide Level 28 mmol/L (21-32) Anion Gap 9 (6-14) Blood Urea Nitrogen 6 mg/dL (7-20) Creatinine 0.5 mg/dL (0.6-1.0) Estimated GFR (Cockcroft-Gault) 122.3 BUN/Creatinine Ratio 12 (6-20) Glucose Level 76 mg/dL (70-99) Calcium Level 7.8 mg/dL (8.5-10.1) Iron Level 14 ug/dL (50-170) Total Iron Binding Capacity 184 ug/dL (250-450) Iron Saturation 8 % (15-34) Total Bilirubin 0.2 mg/dL (0.2-1.0) Aspartate Amino Transf (AST/SGOT) 11 U/L (15-37) Alanine Aminotransferase (ALT/SGPT) 8 U/L (14-59) Alkaline Phosphatase 82 U/L (46-116) Total Protein 5.5 g/dL (6.4-8.2) Albumin 2.1 g/dL (3.4-5.0) Albumin/Globulin Ratio 0.6 (1.0-1.7) Images Images CT c/w diveriticular disease Assessment/Plan Assessment/Plan perforated diverticulitis, colovaginal fistula agree that pt will need surgical intervention, given pain and persistent issues. suspect complicated surgical anatomy, given fistula and perforated diverticulitis pt poor surgical candidate, given poor nutrition and low albumin and BMI, as well as smoking history. Will start TPN and cont abx. Plan surgical intervention of sigmoid colectomy, with temporary ileostomy versus more permanent colostomy this coming week, when OR time can be arranged. Will need urology assisted with stents. Thanks for consult! ARLETTE WAY MD Sep 18, 2021 14:52
[2021-09-18 15:00] VITALS: BP 132/51
[2021-09-18] MEDS: POTASSIUM CL 20MEQ D5-0.45NACL 1,000 ML IV SCH (18:16)
[2021-09-18 19:00] VITALS: BP 121/48
[2021-09-18] MEDS: ATORVASTATIN CALCIUM 20 MG TABLET PO SCH (20:42)
--- NOTE | 2021-09-18 22:26 | RAD ---
Exam: Chest one view INDICATION: Verify PICC TECHNIQUE: Frontal view of the chest Comparisons: None FINDINGS: Right-sided PICC with tip at the atrial caval junction. The cardiomediastinal silhouette and pulmonary vessels are within normal limits. The lung and pleural spaces are clear. IMPRESSION: Lines and tubes described above. Electronically signed by: Savi Lara MD (09/18/2021 10:24 PM) [facility]
[2021-09-18 23:35] VITALS: BP 122/45
[2021-09-19] MEDS: PIPERACILLIN/TAZOBACTAM 3.375 GM in IV NORMAL SALINE 50ML 50 ML IV SCH ×4 (00:50→18:52)
[2021-09-19] MEDS: oxyCODONE/APAP 5/325 1 TAB TABLET PO PRN ×4 (01:01→20:02)
[2021-09-19] MEDS: POTASSIUM CL 20MEQ D5-0.45NACL 1,000 ML IV SCH ×2 (04:31→15:11)
[2021-09-19] MEDS: PANTOPRAZOLE 40 MG TABLET.DR. PO SCH (06:30)
[2021-09-19] MEDS: ONDANSETRON PF 4 MG/2 ML VIAL. IVP PRN (06:30)
[2021-09-19] MEDS: BUDESONIDE 0.5 MG/2 ML NEBU. NEB SCH (06:53)
[2021-09-19 07:16] LABS: BASO % 0 % (0-3); EOS # 0.1 x10^3/uL (0.0-0.7); EOS % 1 % (0-3); HEMATOCRIT 25.4 % (36.0-47.0); HEMOGLOBIN 7.7 g/dL (12.0-15.5); LYMPH # 0.8 x10^3/uL (1.0-4.8); LYMPH % 10 % (24-48); MEAN CORPUSCULAR HEMOGLOBIN 23 pg (25-35); MEAN CORPUSCULAR HGB CONC 30 g/dL (31-37); MEAN CORPUSCULAR VOLUME 74 fL (79-100); MONO # 0.5 x10^3/uL (0.0-1.1); MONO % 6 % (0-9); NEUT # 6.5 x10^3/uL (1.8-7.7); NEUT % 82 % (31-73); PLATELET COUNT 412 x10^3/uL (140-400); RED BLOOD COUNT 3.42 x10^6/uL (3.50-5.40); RED CELL DISTRIBUTION WIDTH 19.4 % (11.5-14.5); WHITE BLOOD COUNT 7.9 x10^3/uL (4.0-11.0)
[2021-09-19 07:20] VITALS: BP 148/55
[2021-09-19 07:28] LABS: ALBUMIN 1.5 g/dL (3.4-5.0); ALBUMIN/GLOBULIN RATIO 0.5 (1.0-1.7); CREATININE 0.5 mg/dL (0.6-1.0); GFR 122.3; TOTAL BILIRUBIN 0.3 mg/dL (0.2-1.0); TOTAL PROTEIN 4.6 g/dL (6.4-8.2)
[2021-09-19] MEDS ORDERED: IV DEXTROSE 5% 250 ML BAG. IV PRN (08:45)
[2021-09-19] MEDS ORDERED: DEXTROSE 50% 25 GM / 50ML DISP.SYRIN. IV PRN (08:45)
[2021-09-19] MEDS ORDERED: CALCIUM GLUCONATE 1,000 MG/10 ML VIAL. IVP ONE (09:00)
[2021-09-19] MEDS: hydroCHLOROthiazide 12.5 MG CAPSULE PO SCH (09:20)
[2021-09-19] MEDS: ASPIRIN CHEWABLE 81 MG TABLET. PO SCH (09:20)
[2021-09-19] MEDS: hydrALAZINE 25 MG TABLET PO SCH (09:21)
[2021-09-19] MEDS: LISINOPRIL 20 MG TABLET PO SCH (09:21)
[2021-09-19] MEDS: VANCOMYCIN 125 MG/2.5 ML ORAL SOLUTION. PO SCH ×4 (09:22→21:57)
[2021-09-19] MEDS: INSULIN LISPRO 300 UNITS/3 ML VIAL. SQ SCH ×3 (09:30→17:00)
[2021-09-19] MEDS: INSULIN GLARGINE SYRINGE. SQ SCH (09:30)
--- NOTE | 2021-09-19 09:58 | PDOC ---
SR. 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 Generally informed the pt what was planned based on the consult notes. The pt wonders if she will see GI. The pt was asked why she was wanted to see GI. She states other have asked her why she has not seen one. Explained that GI may not offer that much on the fistula. She was hoping to see GI for other reasons like the d/c, abd pain and if the abscess has resolved. Explained that the d/c is the fistula. Also discussed if her abd pain was improved during her last hospitalization. She states that she was d/c b/c she was starting to get depressed, so when they asked her if she wanted to go home, she said yes. She does not feel like her abd pain has ever improved. Objective: Vital Signs: Vital Signs Date Time Temp Pulse Resp B/P (MAP) Pulse Ox O2 Delivery O2 Flow Rate FiO2 09/18/21 07:00 98.6 67 20 140/38 (72) 94 Room Air 98.6 09/18/21 21:19 2.0 Vital Signs Date Time Temp Pulse Resp B/P (MAP) Pulse Ox O2 Delivery O2 Flow Rate FiO2 09/19/21 09:31 20 93 Room Air 09/19/21 09:21 64 148/55 09/19/21 07:20 97.8 97.8 09/18/21 21:19 2.0 Labs: Laboratory Tests Test 09/19/21 06:56 White Blood Count 7.9 x10^3/uL (4.0-11.0) Red Blood Count 3.42 x10^6/uL (3.50-5.40) L Hemoglobin 7.7 g/dL (12.0-15.5) L Hematocrit 25.4 % (36.0-47.0) L Mean Corpuscular Volume 74 fL (79-100) L Mean Corpuscular Hemoglobin 23 pg (25-35) L Mean Corpuscular Hemoglobin Concent 30 g/dL (31-37) L Red Cell Distribution Width 19.4 % (11.5-14.5) H Platelet Count 412 x10^3/uL (140-400) H Neutrophils (%) (Auto) 82 % (31-73) H Lymphocytes (%) (Auto) 10 % (24-48) L Monocytes (%) (Auto) 6 % (0-9) Eosinophils (%) (Auto) 1 % (0-3) Basophils (%) (Auto) 0 % (0-3) Neutrophils # (Auto) 6.5 x10^3/uL (1.8-7.7) Lymphocytes # (Auto) 0.8 x10^3/uL (1.0-4.8) L Monocytes # (Auto) 0.5 x10^3/uL (0.0-1.1) Eosinophils # (Auto) 0.1 x10^3/uL (0.0-0.7) Basophils # (Auto) 0.0 x10^3/uL (0.0-0.2) Sodium Level 146 mmol/L (136-145) H Potassium Level 3.0 mmol/L (3.5-5.1) L Chloride Level 110 mmol/L (98-107) H Carbon Dioxide Level 22 mmol/L (21-32) Anion Gap 14 (6-14) Blood Urea Nitrogen 3 mg/dL (7-20) L Creatinine 0.5 mg/dL (0.6-1.0) L Estimated GFR (Cockcroft-Gault) 122.3 BUN/Creatinine Ratio 6 (6-20) Glucose Level 224 mg/dL (70-99) H Calcium Level 6.0 mg/dL (8.5-10.1) *L Total Bilirubin 0.3 mg/dL (0.2-1.0) Aspartate Amino Transferase (AST) 9 U/L (15-37) L Alanine Aminotransferase (ALT) 7 U/L (14-59) L Alkaline Phosphatase 67 U/L (46-116) Total Protein 4.6 g/dL (6.4-8.2) L Albumin 1.5 g/dL (3.4-5.0) L Albumin/Globulin Ratio 0.5 (1.0-1.7) L Laboratory Tests 09/19/21 06:56 Laboratory Tests 09/19/21 06:56 Laboratory Tests 09/19/21 06:56 Physical Exam: GENERAL: No apparent distress. Alert and oriented. HEENT: Head normocephalic, atraumatic. NECK: Supple LUNGS: Clear to auscultation. HEART: RRR, S1, S2 present, pulses intact ABDOMEN: Soft, positive bowel sounds. EXTREMITIES: No cyanosis or edema. NEUROLOGIC: Normal speech, normal tone PSYCHIATRIC: Normal affect, normal mood. SKIN: No ulceration. Assessment & Plan: A/P 70y G0 who was admitted for a possible fistula 1.) Rectovaginal fistula Gen Surg plans sigmoid colectomy, with temporary ileostomy versus more permanent colostomy this coming week after nutritional status improved. Since plans to perform with Urology, likely not to be performed at [facility] 2.) Potential other colonic fistula multiple abdominal surgery and diverticulitis potential causes. Has only been demonstrated on one imaging, but also the potential to be abscess. 3.) Diverticulosis recent hospitalization for microperforation. Pt states pain never improved since recent hospitalization. Imaging has not change significantly over last couple of months. Still on abx. 4.) H/o KAN/BSO sounds like for benign 5.) H/o ERT 6.) HTN per primary team 7.) Tob use 8.) Will cont to follow MAXIMO MELGAR MD Sep 19, 2021 09:58
[2021-09-19 10:58] LABS: MAGNESIUM 1.4 mg/dL (1.8-2.4); PHOSPHORUS 2.8 mg/dL (2.6-4.7)
[2021-09-19] MEDS: TPN PER PHARMACY MC PRN ×2 (11:09→11:23)
--- NOTE | 2021-09-19 11:24 | NUR ---
Pharmacy TPN Dosing Note S: SUZAN CATES is a 70 year old F Currently receiving Central Continuous TPN started 09/19/21 B:Pertinent PMH: Height: 5 feet, 5 inches Weight: 58.1 kg Current diet: NPO LABS: Sodium: 146 Potassium: 3 Chloride: 110 Calcium: 6.0 Corrected Calcium: 8.00 Magnesium: 1.4 CO2: 22 SCr: 0.5 Glucose: 224 Albumin: 1.5 AST: 9 ALT: 7 TPN FORMULA: TPN TYPE: Central Continuous AMINO ACIDS: 60 gm DEXTROSE: 195 gm POTASSIUM ACETATE: 80 mEq POTASSIUM PHOSPHATE: 15 mmol MAGNESIUM: 15 mEq MULTIPLE VITAMIN: 10 ml TRACE ELEMENTS: 1 ml(s) TPN PLAN: Initiate house formula TPN with lipids MWF only d/t shortage No calcium in TPN due to shortage at compounding pharmacy (will supplement as needed with hospital supply). Corrected calcium is 8 No sodium in tonight's bag per labs Magnesium 2g IVPB x1 today and 15mEq in TPN Potassium increased from standard to 80mEq/bag and added as acetate salt R: Begin TPN per plan and ordered formula Will monitor electrolytes, glucose, and tolerance to TPN. Shaniqua Agosto [facility], 09/19/21 [id number]
[2021-09-19 11:30] VITALS: BP 110/46
[2021-09-19] MEDS ORDERED: MAGNESIUM SULFATE 2GM 50 ML IV ONE (12:00)
--- NOTE | 2021-09-19 13:57 | PDOC ---
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 IV abx History of Present Illness History of Present Illness Gen Surg plans sigmoid colectomy, with temporary ileostomy v I think she is refusing blood sugars and insulin dicussed with her girlfriend by phone, on speaker with Patient Vitals/I&O Vitals/I&O: Vital Signs Date Time Temp Pulse Resp B/P (MAP) Pulse Ox O2 Delivery O2 Flow Rate FiO2 09/19/21 11:30 98.7 66 18 110/46 (67) 94 Room Air 98.7 09/18/21 21:19 2.0 I & O 09/18/21 09/18/21 09/19/21 15:00 23:00 07:00 Intake Total 50 ml Balance 50 ml Physical Exam General: Alert, Oriented X3, Cooperative, mild distress Heart: Regular rate, Normal S1, Normal S2, No murmurs Lungs: Clear Abdomen: Soft (mild tender, ) Extremities: No cyanosis, No edema, Normal pulses Skin: No significant lesion Labs Labs: Laboratory Tests Test 09/19/21 05:45 09/19/21 06:56 Phosphorus Level 2.8 mg/dL (2.6-4.7) Magnesium Level 1.4 mg/dL (1.8-2.4) White Blood Count 7.9 x10^3/uL (4.0-11.0) Red Blood Count 3.42 x10^6/uL (3.50-5.40) Hemoglobin 7.7 g/dL (12.0-15.5) Hematocrit 25.4 % (36.0-47.0) Mean Corpuscular Volume 74 fL (79-100) Mean Corpuscular Hemoglobin 23 pg (25-35) Mean Corpuscular Hemoglobin Concent 30 g/dL (31-37) Red Cell Distribution Width 19.4 % (11.5-14.5) Platelet Count 412 x10^3/uL (140-400) Neutrophils (%) (Auto) 82 % (31-73) Lymphocytes (%) (Auto) 10 % (24-48) Monocytes (%) (Auto) 6 % (0-9) Eosinophils (%) (Auto) 1 % (0-3) Basophils (%) (Auto) 0 % (0-3) Neutrophils # (Auto) 6.5 x10^3/uL (1.8-7.7) Lymphocytes # (Auto) 0.8 x10^3/uL (1.0-4.8) Monocytes # (Auto) 0.5 x10^3/uL (0.0-1.1) Eosinophils # (Auto) 0.1 x10^3/uL (0.0-0.7) Basophils # (Auto) 0.0 x10^3/uL (0.0-0.2) Sodium Level 146 mmol/L (136-145) Potassium Level 3.0 mmol/L (3.5-5.1) Chloride Level 110 mmol/L (98-107) Carbon Dioxide Level 22 mmol/L (21-32) Anion Gap 14 (6-14) Blood Urea Nitrogen 3 mg/dL (7-20) Creatinine 0.5 mg/dL (0.6-1.0) Estimated GFR (Cockcroft-Gault) 122.3 BUN/Creatinine Ratio 6 (6-20) Glucose Level 224 mg/dL (70-99) Calcium Level 6.0 mg/dL (8.5-10.1) Total Bilirubin 0.3 mg/dL (0.2-1.0) Aspartate Amino Transf (AST/SGOT) 9 U/L (15-37) Alanine Aminotransferase (ALT/SGPT) 7 U/L (14-59) Alkaline Phosphatase 67 U/L (46-116) Total Protein 4.6 g/dL (6.4-8.2) Albumin 1.5 g/dL (3.4-5.0) Albumin/Globulin Ratio 0.5 (1.0-1.7) Comment Review of Relevant I have reviewed the following items qasim (where applicable) has been applied. Medications: Current Medications Medications (Trade) Dose Ordered Sig/Gael Route PRN Reason Start Time Stop Time Status Last Admin Dose Admin Potassium Chloride/Dextrose/ Sod Cl 1,000 ml @ 100 mls/hr Q10H IV 09/18/21 18:00 09/19/21 21:59 09/19/21 04:31 Info (Tpn Per Pharmacy) 1 each PRN DAILY PRN MC SEE COMMENTS 09/18/21 18:00 09/19/21 11:23 Calcium Gluconate (Calcium Gluconate) 1,000 mg 1X ONCE IVP 09/19/21 09:00 09/19/21 09:01 DC 09/19/21 12:30 Justifications for Admission Other Justification Perforated diverticulitis CHRIS ROLLE MD Sep 19, 2021 13:57
[2021-09-19] MEDS ORDERED: MAGNESIUM SULFATE 4GM 100 ML IV ONE (14:00)
--- NOTE | 2021-09-19 14:36 | PDOC ---
SURGICAL PROGRESS NOTE DATE: 09/19/21 TIME: 14:34 Subjective Pt with c/o lower abd pain Vital Signs Vital Signs Date Time Temp Pulse Resp B/P (MAP) Pulse Ox O2 Delivery O2 Flow Rate FiO2 09/19/21 11:30 98.7 66 18 110/46 (67) 94 Room Air 98.7 09/18/21 21:19 2.0 I&O Intake and Output 09/19/21 07:00 Intake Total 50 ml Balance 50 ml IV Total 50 ml General: Alert, mild distress Abdomen: Soft, Other (TTP lower abd) Labs Laboratory Tests Test 09/18/21 00:05 09/18/21 06:30 09/19/21 05:45 09/19/21 06:56 Clostridium difficile Toxin (PCR) Negative (NEGATIVE) White Blood Count 8.6 x10^3/uL (4.0-11.0) 7.9 x10^3/uL (4.0-11.0) Red Blood Count 3.43 x10^6/uL (3.50-5.40) 3.42 x10^6/uL (3.50-5.40) Hemoglobin 8.0 g/dL (12.0-15.5) 7.7 g/dL (12.0-15.5) Hematocrit 25.4 % (36.0-47.0) 25.4 % (36.0-47.0) Mean Corpuscular Volume 74 fL (79-100) 74 fL (79-100) Mean Corpuscular Hemoglobin 23 pg (25-35) 23 pg (25-35) Mean Corpuscular Hemoglobin Concent 32 g/dL (31-37) 30 g/dL (31-37) Red Cell Distribution Width 19.3 % (11.5-14.5) 19.4 % (11.5-14.5) Platelet Count 428 x10^3/uL (140-400) 412 x10^3/uL (140-400) Neutrophils (%) (Auto) 76 % (31-73) 82 % (31-73) Lymphocytes (%) (Auto) 14 % (24-48) 10 % (24-48) Monocytes (%) (Auto) 8 % (0-9) 6 % (0-9) Eosinophils (%) (Auto) 2 % (0-3) 1 % (0-3) Basophils (%) (Auto) 0 % (0-3) 0 % (0-3) Neutrophils # (Auto) 6.6 x10^3/uL (1.8-7.7) 6.5 x10^3/uL (1.8-7.7) Lymphocytes # (Auto) 1.2 x10^3/uL (1.0-4.8) 0.8 x10^3/uL (1.0-4.8) Monocytes # (Auto) 0.7 x10^3/uL (0.0-1.1) 0.5 x10^3/uL (0.0-1.1) Eosinophils # (Auto) 0.2 x10^3/uL (0.0-0.7) 0.1 x10^3/uL (0.0-0.7) Basophils # (Auto) 0.0 x10^3/uL (0.0-0.2) 0.0 x10^3/uL (0.0-0.2) Sodium Level 145 mmol/L (136-145) 146 mmol/L (136-145) Potassium Level 2.7 mmol/L (3.5-5.1) 3.0 mmol/L (3.5-5.1) Chloride Level 108 mmol/L (98-107) 110 mmol/L (98-107) Carbon Dioxide Level 28 mmol/L (21-32) 22 mmol/L (21-32) Anion Gap 9 (6-14) 14 (6-14) Blood Urea Nitrogen 6 mg/dL (7-20) 3 mg/dL (7-20) Creatinine 0.5 mg/dL (0.6-1.0) 0.5 mg/dL (0.6-1.0) Estimated GFR (Cockcroft-Gault) 122.3 122.3 BUN/Creatinine Ratio 12 (6-20) 6 (6-20) Glucose Level 76 mg/dL (70-99) 224 mg/dL (70-99) Calcium Level 7.8 mg/dL (8.5-10.1) 6.0 mg/dL (8.5-10.1) Iron Level 14 ug/dL (50-170) Total Iron Binding Capacity 184 ug/dL (250-450) Iron Saturation 8 % (15-34) Total Bilirubin 0.2 mg/dL (0.2-1.0) 0.3 mg/dL (0.2-1.0) Aspartate Amino Transf (AST/SGOT) 11 U/L (15-37) 9 U/L (15-37) Alanine Aminotransferase (ALT/SGPT) 8 U/L (14-59) 7 U/L (14-59) Alkaline Phosphatase 82 U/L (46-116) 67 U/L (46-116) Total Protein 5.5 g/dL (6.4-8.2) 4.6 g/dL (6.4-8.2) Albumin 2.1 g/dL (3.4-5.0) 1.5 g/dL (3.4-5.0) Albumin/Globulin Ratio 0.6 (1.0-1.7) 0.5 (1.0-1.7) Phosphorus Level 2.8 mg/dL (2.6-4.7) Magnesium Level 1.4 mg/dL (1.8-2.4) Laboratory Tests Test 09/19/21 05:45 09/19/21 06:56 Phosphorus Level 2.8 mg/dL (2.6-4.7) Magnesium Level 1.4 mg/dL (1.8-2.4) White Blood Count 7.9 x10^3/uL (4.0-11.0) Red Blood Count 3.42 x10^6/uL (3.50-5.40) Hemoglobin 7.7 g/dL (12.0-15.5) Hematocrit 25.4 % (36.0-47.0) Mean Corpuscular Volume 74 fL (79-100) Mean Corpuscular Hemoglobin 23 pg (25-35) Mean Corpuscular Hemoglobin Concent 30 g/dL (31-37) Red Cell Distribution Width 19.4 % (11.5-14.5) Platelet Count 412 x10^3/uL (140-400) Neutrophils (%) (Auto) 82 % (31-73) Lymphocytes (%) (Auto) 10 % (24-48) Monocytes (%) (Auto) 6 % (0-9) Eosinophils (%) (Auto) 1 % (0-3) Basophils (%) (Auto) 0 % (0-3) Neutrophils # (Auto) 6.5 x10^3/uL (1.8-7.7) Lymphocytes # (Auto) 0.8 x10^3/uL (1.0-4.8) Monocytes # (Auto) 0.5 x10^3/uL (0.0-1.1) Eosinophils # (Auto) 0.1 x10^3/uL (0.0-0.7) Basophils # (Auto) 0.0 x10^3/uL (0.0-0.2) Sodium Level 146 mmol/L (136-145) Potassium Level 3.0 mmol/L (3.5-5.1) Chloride Level 110 mmol/L (98-107) Carbon Dioxide Level 22 mmol/L (21-32) Anion Gap 14 (6-14) Blood Urea Nitrogen 3 mg/dL (7-20) Creatinine 0.5 mg/dL (0.6-1.0) Estimated GFR (Cockcroft-Gault) 122.3 BUN/Creatinine Ratio 6 (6-20) Glucose Level 224 mg/dL (70-99) Calcium Level 6.0 mg/dL (8.5-10.1) Total Bilirubin 0.3 mg/dL (0.2-1.0) Aspartate Amino Transf (AST/SGOT) 9 U/L (15-37) Alanine Aminotransferase (ALT/SGPT) 7 U/L (14-59) Alkaline Phosphatase 67 U/L (46-116) Total Protein 4.6 g/dL (6.4-8.2) Albumin 1.5 g/dL (3.4-5.0) Albumin/Globulin Ratio 0.5 (1.0-1.7) Assessment/Plan perforated diverticulitis pt interested in pursuing repair, but appears to have unreasonable expectations. poor candidate, given smoking history and malnutrition d/w pt and pt's friend on phone will ask GI to comment, per pt request Justicifation of Admission Dx: Justifications for Admission: Justification of Admission Dx: Yes Sepsis: Infection ARLETTE WAY MD Sep 19, 2021 14:36
[2021-09-19 15:30] VITALS: BP 134/62
[2021-09-19] MEDS ORDERED: BUDESONIDE 0.5 MG/2 ML NEBU. NEB PRN (18:00)
[2021-09-19 19:00] VITALS: BP 101/53
[2021-09-19] MEDS: ATORVASTATIN CALCIUM 20 MG TABLET PO SCH (20:00)
[2021-09-19] MEDS ORDERED: AMINO ACID IV SCH (22:00)
[2021-09-19] MEDS ORDERED: DEXTROSE 70% IV SCH (22:00)
[2021-09-19] MEDS ORDERED: [UNRECOGNIZED DRUG - OTHER] IV SCH (22:00)
[2021-09-19] MEDS ORDERED: TOTAL PARENTERAL NUTRITION IV SCH (22:00)
[2021-09-19 23:28] VITALS: BP 105/41
[2021-09-20] MEDS: PIPERACILLIN/TAZOBACTAM 3.375 GM in IV NORMAL SALINE 50ML 50 ML IV SCH ×4 (00:07→17:07)
[2021-09-20] MEDS: INSULIN LISPRO 300 UNITS/3 ML VIAL. SQ SCH ×4 (01:00→18:00)
[2021-09-20] MEDS: PANTOPRAZOLE 40 MG TABLET.DR. PO SCH (05:48)
[2021-09-20 06:31] LABS: CALCIUM 7.3 mg/dL (8.5-10.1); CREATININE 0.4 mg/dL (0.6-1.0); GFR 158.3; MAGNESIUM 2.6 mg/dL (1.8-2.4); PHOSPHORUS 2.5 mg/dL (2.6-4.7); POTASSIUM 3.3 mmol/L (3.5-5.1)
[2021-09-20 07:00] VITALS: BP 109/43
[2021-09-20] MEDS: hydrALAZINE 25 MG TABLET PO SCH (08:58)
[2021-09-20] MEDS: LISINOPRIL 20 MG TABLET PO SCH (08:58)
[2021-09-20] MEDS: hydroCHLOROthiazide 12.5 MG CAPSULE PO SCH (09:00)
[2021-09-20] MEDS: VANCOMYCIN 125 MG/2.5 ML ORAL SOLUTION. PO SCH ×2 (09:00→12:17)
[2021-09-20] MEDS: INSULIN GLARGINE SYRINGE. SQ SCH (09:01)
[2021-09-20] MEDS: ASPIRIN CHEWABLE 81 MG TABLET. PO SCH (09:02)
[2021-09-20] MEDS: oxyCODONE/APAP 5/325 1 TAB TABLET PO PRN ×4 (09:03→22:03)
--- NOTE | 2021-09-20 09:55 | PDOC2 ---
GI CONSULT Date of Service: DATE: 09/20/21 TIME: 09:54 Reason For Consult: perforated diverticulitis HPI: HPI: 70 y/o female w/ h/o perforated diverticulitis, now w/ colovaginal fistula. Discussion for surgical intervention w/ urology assist. 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 Tells me improved after last admission - less pain, able to eat/drink/stool normally, then recurrent/severe mid-lower abdominal pain a few days ago, also vaginal discharge for a few weeks. Also had some vomiting. Wanted to be sure she covered all her bases with all the doctors, doesn't understand why she didn't get better, doesn't understand why she's malnourished. Says "diverticulitis for years" but describes this as intermittent diarrhea for a few days. Prior to recent episode, never had imaging to confirm this and never had atbx treatment. Not sure about reflux/heartburn but "tummy troubles for years," currently taking Nexium. Weight loss ~60 pounds over the past year - initially was intentional, wanted to lose 20 pounds. No dysphagia, hematemesis, chronic abd pain, constipation, hematochezia, or melena. Denies h/o anemia. No previous EGD. Colonoscopy [address] Martines w/ diverticulosis. S/p cholecystectomy (unsure if stones). No liver, pancreas, or PUD history. Hepatosplenomegaly on past CT. PMH: PMH: HTN, HLD appendectomy, cholecystectomy, hysterectomy, bunionectomy FH: Family History: No pertinent hx Social History: Smoke: 1 pack per day ALCOHOL: none Drugs: None ROS: GEN: Denies fevers, chills, sweats HEENT: Denies blurred vision, sore throat CV: Denies chest pain RESP: Denies shortness of air, cough GI: Per HPI : +vaginal discharge ENDO: +weight loss NEURO: Denies confusion, dizziness MSK: Denies weakness, joint pain/swelling SKIN: Denies jaundice, pruritus Vitals: Vitals: Vital Signs Date Time Temp Pulse Resp B/P (MAP) Pulse Ox O2 Delivery O2 Flow Rate FiO2 09/20/21 09:39 Room Air 09/20/21 08:58 60 109/43 09/20/21 07:00 99.5 18 95 99.5 09/19/21 15:34 2.0 Labs: Labs: Laboratory Tests Test 09/19/21 17:06 09/20/21 00:43 09/20/21 06:00 09/20/21 06:07 Glucose (Fingerstick) 103 mg/dL (70-99) 137 mg/dL (70-99) 132 mg/dL (70-99) Sodium Level 140 mmol/L (136-145) Potassium Level 3.3 mmol/L (3.5-5.1) Chloride Level 106 mmol/L (98-107) Carbon Dioxide Level 31 mmol/L (21-32) Anion Gap 3 (6-14) Blood Urea Nitrogen 4 mg/dL (7-20) Creatinine 0.4 mg/dL (0.6-1.0) Estimated GFR (Cockcroft-Gault) 158.3 Glucose Level 101 mg/dL (70-99) Calcium Level 7.3 mg/dL (8.5-10.1) Phosphorus Level 2.5 mg/dL (2.6-4.7) Magnesium Level 2.6 mg/dL (1.8-2.4) Triglycerides Level 69 mg/dL (0-150) Allergies: Coded Allergies: No Known Medication Allergies (Verified Allergy, Unknown, 09/17/21) codeine (Verified Adverse Reaction, Intermediate, abdominal pain, 07/20/21) Medications: Current Medications Medications (Trade) Dose Ordered Sig/Gael Route PRN Reason Start Time Stop Time Status Last Admin Dose Admin Potassium Acetate 80 meq/Potassium Phosphate 15 mmol/ Magnesium Sulfate 15 meq/ Multivitamins 10 ml/Zinc/Copper/ Manganese/ Selenium 1 ml/ Total Parenteral Nutrition/Amino Acids/Dextrose/ Fat Emulsion Intravenous 1,512 ml @ 63 mls/hr TPN CONT IV 09/19/21 22:00 09/20/21 21:59 09/19/21 21:57 Magnesium Sulfate 100 ml @ 25 mls/hr 1X ONCE IV 09/19/21 14:00 09/19/21 17:59 DC 09/19/21 14:45 Imaging: Imaging: CXR 09/18 FINDINGS: Right-sided PICC with tip at the atrial caval junction. The cardiomediastinal silhouette and pulmonary vessels are within normal limits. The lung and pleural spaces are clear. IMPRESSION: Lines and tubes described above. CT A/P 09/16 FINDINGS: Heart size is normal. No pericardial effusion. Visualized lung bases are clear. No pleural effusion. Liver, spleen, pancreas, and adrenals are unremarkable. Gallbladder surgically absent. No perinephric inflammation or hydronephrosis. No renal or ureteral calculi are identified. Bladder is partially distended and not well evaluated. Uterus is absent. No abnormal adnexal mass. There is diffuse wall thickening at the sigmoid colon with effacement of adjacent fat planes. Moderate amount stool throughout the colon. Appendix is not identified. Small bowel is unremarkable. No free intra- abdominal air or fluid. No obstruction. Abdominal aorta has a normal course and caliber. Abdominal vascular is patent. No enlarged intra-abdominal lymph nodes are identified. No suspicious osseous lesions or acute fractures. IMPRESSION: Diffuse wall thickening at the sigmoid colon with effacement of adjacent fat planes. Discrete adjacent fluid collection is not identified. Findings favored to represent colitis. Appearance is is not significantly changed when compared to the study on 08/02/2021 PE: GEN: NAD HEENT: Atraumatic, PERRL LUNGS: CTAB HEART: RRR ABD: some distention, uncomfortable, periumbilical/LLQ/suprapubic EXTREMITY: No edema SKIN: No rashes, no jaundice NEURO/PSYCH: A & O 3 A/P: A/P: Perforated diverticulitis, colovaginal fistula Microcytic anemia - previous iron profile c/w DEWAYNE/ACD Hypokalemia, hypocalcemia, hypoalbuminemia H/o dyspepsia and intermittent diarrhea, weight loss CRC screen - last in 1998 S/p cholecystectomy -- Continue per surgery. Needs 'scopes down the road after surgery and for DEWAYNE - no plans/indications for these currently - discussed w/ pt. Agree w/ PPI. ALEXSANDER TAFOYA Sep 20, 2021 09:55
--- NOTE | 2021-09-20 10:22 | PDOC ---
SURGICAL PROGRESS NOTE DATE: 09/20/21 TIME: 10:19 Subjective less vaginal drainage many questions related to surgery, risks, ostomy etc Vital Signs Vital Signs Date Time Temp Pulse Resp B/P (MAP) Pulse Ox O2 Delivery O2 Flow Rate FiO2 09/20/21 09:39 Room Air 09/20/21 08:58 60 109/43 09/20/21 07:00 99.5 18 95 99.5 09/19/21 15:34 2.0 I&O Intake and Output 09/20/21 07:00 Intake Total 50 ml Balance 50 ml IV Total 50 ml # Voids 4 # Bowel Movements 2 General: Alert, Oriented X3, Cooperative Abdomen: Soft, No tenderness Labs Laboratory Tests Test 09/19/21 05:45 09/19/21 06:56 09/19/21 17:06 09/20/21 00:43 Phosphorus Level 2.8 mg/dL (2.6-4.7) Magnesium Level 1.4 mg/dL (1.8-2.4) White Blood Count 7.9 x10^3/uL (4.0-11.0) Red Blood Count 3.42 x10^6/uL (3.50-5.40) Hemoglobin 7.7 g/dL (12.0-15.5) Hematocrit 25.4 % (36.0-47.0) Mean Corpuscular Volume 74 fL (79-100) Mean Corpuscular Hemoglobin 23 pg (25-35) Mean Corpuscular Hemoglobin Concent 30 g/dL (31-37) Red Cell Distribution Width 19.4 % (11.5-14.5) Platelet Count 412 x10^3/uL (140-400) Neutrophils (%) (Auto) 82 % (31-73) Lymphocytes (%) (Auto) 10 % (24-48) Monocytes (%) (Auto) 6 % (0-9) Eosinophils (%) (Auto) 1 % (0-3) Basophils (%) (Auto) 0 % (0-3) Neutrophils # (Auto) 6.5 x10^3/uL (1.8-7.7) Lymphocytes # (Auto) 0.8 x10^3/uL (1.0-4.8) Monocytes # (Auto) 0.5 x10^3/uL (0.0-1.1) Eosinophils # (Auto) 0.1 x10^3/uL (0.0-0.7) Basophils # (Auto) 0.0 x10^3/uL (0.0-0.2) Sodium Level 146 mmol/L (136-145) Potassium Level 3.0 mmol/L (3.5-5.1) Chloride Level 110 mmol/L (98-107) Carbon Dioxide Level 22 mmol/L (21-32) Anion Gap 14 (6-14) Blood Urea Nitrogen 3 mg/dL (7-20) Creatinine 0.5 mg/dL (0.6-1.0) Estimated GFR (Cockcroft-Gault) 122.3 BUN/Creatinine Ratio 6 (6-20) Glucose Level 224 mg/dL (70-99) Calcium Level 6.0 mg/dL (8.5-10.1) Total Bilirubin 0.3 mg/dL (0.2-1.0) Aspartate Amino Transf (AST/SGOT) 9 U/L (15-37) Alanine Aminotransferase (ALT/SGPT) 7 U/L (14-59) Alkaline Phosphatase 67 U/L (46-116) Total Protein 4.6 g/dL (6.4-8.2) Albumin 1.5 g/dL (3.4-5.0) Albumin/Globulin Ratio 0.5 (1.0-1.7) Glucose (Fingerstick) 103 mg/dL (70-99) 137 mg/dL (70-99) Test 09/20/21 06:00 09/20/21 06:07 Sodium Level 140 mmol/L (136-145) Potassium Level 3.3 mmol/L (3.5-5.1) Chloride Level 106 mmol/L (98-107) Carbon Dioxide Level 31 mmol/L (21-32) Anion Gap 3 (6-14) Blood Urea Nitrogen 4 mg/dL (7-20) Creatinine 0.4 mg/dL (0.6-1.0) Estimated GFR (Cockcroft-Gault) 158.3 Glucose Level 101 mg/dL (70-99) Calcium Level 7.3 mg/dL (8.5-10.1) Phosphorus Level 2.5 mg/dL (2.6-4.7) Magnesium Level 2.6 mg/dL (1.8-2.4) Triglycerides Level 69 mg/dL (0-150) Glucose (Fingerstick) 132 mg/dL (70-99) Laboratory Tests Test 09/19/21 17:06 09/20/21 00:43 09/20/21 06:00 09/20/21 06:07 Glucose (Fingerstick) 103 mg/dL (70-99) 137 mg/dL (70-99) 132 mg/dL (70-99) Sodium Level 140 mmol/L (136-145) Potassium Level 3.3 mmol/L (3.5-5.1) Chloride Level 106 mmol/L (98-107) Carbon Dioxide Level 31 mmol/L (21-32) Anion Gap 3 (6-14) Blood Urea Nitrogen 4 mg/dL (7-20) Creatinine 0.4 mg/dL (0.6-1.0) Estimated GFR (Cockcroft-Gault) 158.3 Glucose Level 101 mg/dL (70-99) Calcium Level 7.3 mg/dL (8.5-10.1) Phosphorus Level 2.5 mg/dL (2.6-4.7) Magnesium Level 2.6 mg/dL (1.8-2.4) Triglycerides Level 69 mg/dL (0-150) Assessment/Plan colovaginal fistula, perforated diverticulitis discussed surgery, ostomy will have dr harmeet RAPHAEL, discuss, tentative surgery plans chart, round 20 min Justicifation of Admission Dx: Justifications for Admission: Justification of Admission Dx: Yes Sepsis: Infection FARIBA SMALL APRN Sep 20, 2021 10:22
--- NOTE | 2021-09-20 10:50 | PDOC ---
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 IV abx History of Present Illness History of Present Illness 09/20/2021 Patient seen and examined at bedside this morning sitting upright in NAD Patient receiving TPN Discussed case with surgery (Noé) over phone Plan for surgery monday, waiting on Noé to see her today Discussed with RN Chart reviewed 09/19/2021 Gen Surg plans sigmoid colectomy, with temporary ileostomy v I think she is refusing blood sugars and insulin dicussed with her girlfriend by phone, on speaker with Patient Vitals/I&O Vitals/I&O: Vital Signs Date Time Temp Pulse Resp B/P (MAP) Pulse Ox O2 Delivery O2 Flow Rate FiO2 09/20/21 09:39 Room Air 09/20/21 08:58 60 109/43 09/20/21 07:00 99.5 18 95 99.5 09/19/21 15:34 2.0 I & O 09/19/21 09/19/21 09/20/21 15:00 23:00 07:00 Intake Total 50 ml Balance 50 ml Physical Exam General: Alert, Oriented X3, Cooperative, No acute distress Heart: Regular rate, Normal S1, Normal S2, No murmurs Lungs: Clear Abdomen: Soft, No tenderness Extremities: No cyanosis, No edema, Normal pulses Skin: No significant lesion Labs Labs: Laboratory Tests Test 09/19/21 17:06 09/20/21 00:43 09/20/21 06:00 09/20/21 06:07 Glucose (Fingerstick) 103 mg/dL (70-99) 137 mg/dL (70-99) 132 mg/dL (70-99) Sodium Level 140 mmol/L (136-145) Potassium Level 3.3 mmol/L (3.5-5.1) Chloride Level 106 mmol/L (98-107) Carbon Dioxide Level 31 mmol/L (21-32) Anion Gap 3 (6-14) Blood Urea Nitrogen 4 mg/dL (7-20) Creatinine 0.4 mg/dL (0.6-1.0) Estimated GFR (Cockcroft-Gault) 158.3 Glucose Level 101 mg/dL (70-99) Calcium Level 7.3 mg/dL (8.5-10.1) Phosphorus Level 2.5 mg/dL (2.6-4.7) Magnesium Level 2.6 mg/dL (1.8-2.4) Triglycerides Level 69 mg/dL (0-150) Assessment and Plan Assessmemt and Plan Assessment Colovaginal fistula Perforated diverticulitis Plan IV Abx IV fluids and electrolytes Continue TPN; NPO Discussed surgery and potential osteomy Appreciate subspecialty input (OBGYN and surgery) Plan for surgery Monday Continue home medications DVT prophylaxis Full code Comment Review of Relevant I have reviewed the following items qasim (where applicable) has been applied. Medications: Current Medications Medications (Trade) Dose Ordered Sig/Gael Route PRN Reason Start Time Stop Time Status Last Admin Dose Admin Potassium Acetate 80 meq/Potassium Phosphate 15 mmol/ Magnesium Sulfate 15 meq/ Multivitamins 10 ml/Zinc/Copper/ Manganese/ Selenium 1 ml/ Total Parenteral Nutrition/Amino Acids/Dextrose/ Fat Emulsion Intravenous 1,512 ml @ 63 mls/hr TPN CONT IV 09/19/21 22:00 09/20/21 21:59 09/19/21 21:57 Magnesium Sulfate 100 ml @ 25 mls/hr 1X ONCE IV 09/19/21 14:00 09/19/21 17:59 DC 09/19/21 14:45 Justifications for Admission Other Justification Perforated diverticulitis TIFFANIE NAILS III DO Sep 20, 2021 10:50
--- NOTE | 2021-09-20 10:59 | NUR ---
SW following. Discussed with RN, pt from home alone, room air, NPO - TPN. Some discussion about surgery today but needing to coordinate with urology for stent placement. Pt has a perforated bowel, not medically ready fro discharge. SW will continue to follow.
[2021-09-20 11:00] VITALS: BP 142/43
--- NOTE | 2021-09-20 11:06 | PDOC ---
[facility] PROGRESS NOTE Date of Service: DATE: 09/20/21 TIME: 11:05 Subjective: Pt with no issues or concerns Objective: Vital Signs: Vital Signs Date Time Temp Pulse Resp B/P (MAP) Pulse Ox O2 Delivery O2 Flow Rate FiO2 09/19/21 07:20 97.8 64 16 148/55 (86) 93 Room Air 97.8 09/19/21 10:01 2.0 Vital Signs Date Time Temp Pulse Resp B/P (MAP) Pulse Ox O2 Delivery O2 Flow Rate FiO2 09/20/21 09:39 Room Air 09/20/21 08:58 60 109/43 09/20/21 07:00 99.5 18 95 99.5 09/19/21 15:34 2.0 Labs: Laboratory Tests Test 09/19/21 17:06 09/20/21 00:43 09/20/21 06:00 09/20/21 06:07 Glucose (Fingerstick) 103 mg/dL (70-99) H 137 mg/dL (70-99) H 132 mg/dL (70-99) H Sodium Level 140 mmol/L (136-145) Potassium Level 3.3 mmol/L (3.5-5.1) L Chloride Level 106 mmol/L (98-107) Carbon Dioxide Level 31 mmol/L (21-32) Anion Gap 3 (6-14) L Blood Urea Nitrogen 4 mg/dL (7-20) L Creatinine 0.4 mg/dL (0.6-1.0) L Estimated GFR (Cockcroft-Gault) 158.3 Glucose Level 101 mg/dL (70-99) H Calcium Level 7.3 mg/dL (8.5-10.1) L Phosphorus Level 2.5 mg/dL (2.6-4.7) L Magnesium Level 2.6 mg/dL (1.8-2.4) H Triglycerides Level 69 mg/dL (0-150) Laboratory Tests 09/20/21 06:00 Laboratory Tests 09/20/21 06:00 Physical Exam: GENERAL: No apparent distress. Alert and oriented. HEENT: Head normocephalic, atraumatic. NECK: Supple LUNGS: Clear to auscultation. HEART: RRR, S1, S2 present, pulses intact ABDOMEN: Soft, positive bowel sounds. EXTREMITIES: No cyanosis or edema. NEUROLOGIC: Normal speech, normal tone PSYCHIATRIC: Normal affect, normal mood. SKIN: No ulceration. Assessment & Plan: A/P 70y G0 who was admitted for a possible fistula 1.) Rectovaginal fistula Gen Surg plans sigmoid colectomy, with temporary il eostomy versus more permanent colostomy this coming week after nutritional status improved. Since plans to perform with Urology, likely not to be performed at [place] 2.) Potential other colonic fistula multiple abdominal surgery and diverticulitis potential causes. Has only been demonstrated on one imaging, but also the potential to be abscess. 3.) Diverticulosis GI consulted. recent hospitalization for microperforation. Pt states pain never improved since recent hospitalization. Imaging has not change significantly over last couple of months. Still on abx. 4.) H/o KAN/BSO sounds like for benign 5.) H/o ERT 6.) HTN per primary team 7.) Tob use 8.) Will cont to follow MAXIMO MELGAR MD Sep 20, 2021 11:06
[2021-09-20] MEDS ORDERED: POTASSIUM PHOSPHATE DIBASIC 15 MMOL in IV NS 100 ML IV SCH (13:00)
[2021-09-20] MEDS: HEPARIN for SUB-Q USE 5,000 UNIT/ML VIAL. SQ SCH (13:03)
--- NOTE | 2021-09-20 13:44 | PDOC2 ---
UROLOGY CONSULT Date of Service DATE: 09/20/21 TIME: 13:41 Past Medical History Cardiovascular: HTN, Hyperlipidemia GI: Diverticulosis Hepatobiliary: No pertinent hx Psych: No pertinent hx Past Surgical History Past Surgical History: Appendectomy, Cholecystectomy, Hysterectomy, Other Family History Family History: No Significant, Other Social History 1 pack per day ALCOHOL: none Drugs: None Lives: Alone Current Medications Current Medications Current Medications Budesonide (Pulmicort) 0.5 mg PRN BID PRN NEB WHEEZING; Start 09/19/21 at 18:00 Heparin Sodium (Porcine) (Heparin Sodium) 5,000 unit Q8HRS SQ ; Start 09/20/21 at 14:00 Insulin Human Lispro (HumaLOG) 0-5 UNITS Q6HRS SQ ; Start 09/20/21 at 01:00 Magnesium Sulfate 100 ml @ 25 mls/hr 1X ONCE IV Last administered on 09/19/21at 14:45; Start 09/19/21 at 14:00; Stop 09/19/21 at 17:59; Status DC Potassium Phosphate 15 mmol/ Sodium Chloride 105 ml @ 52.5 mls/hr Q2H IV Last administered on 09/20/21at 12:18; Start 09/20/21 at 13:00; Stop 09/20/21 at 14:59 Potassium Acetate 80 meq/Potassium Phosphate 15 mmol/ Magnesium Sulfate 15 meq/ Multivitamins 10 ml/Zinc/Copper/ Manganese/ Selenium 1 ml/ Total Parenteral Nutrition/Amino Acids/Dextrose/ Fat Emulsion Intravenous 1,512 ml @ 63 mls/hr TPN CONT IV Last administered on 09/19/21at 21:57; Start 09/19/21 at 22:00; Stop 09/20/21 at 21:59 Allergies Allergies: Coded Allergies: codeine (Verified Adverse Reaction, Intermediate, abdominal pain, 07/20/21) ROS Review Of Systems: CONSTITUTIONAL: No fever or chills EYES: No recent changes SKIN: No rash or itching CARDIOVASCULAR: No chest pain, syncope, palpitations, or edema RESPIRATORY: No SOB or cough GASTROINTESTINAL: No nausea, vomiting or abdominal pain NEUROLOGICAL: No headaches or weakness ENDOCRINE: No cold or heat intolerance GENITOURINARY: No urgency or frequency of urination MUSCULOSKELETAL: No back pain or joint pain LYMPHATICS: No enlarged lymph nodes PSYCHIATRIC: No anxiety or depression Physical Exam Physical Exam: General: Pleasant, no acute distress, well groomed Eyes: conjunctiva anicteric, eyes full range of motion ENT: moist oral mucosa, normal dentition Neck: Trachea midline, no masses Respiratory: unlabored breathing, not using accessory muscles, no crackles or w heezes Cardiovascular: Regular rate and rhythm, no peripheral edema Abdomen: nontender, nondistended, no hepatosplenomegaly, no masses Skin: no rashes or skin lesions on visualized skin Psych: normal mood, affect. Alert and oriented x 3. Vitals VITALS Vital Signs Date Time Temp Pulse Resp B/P (MAP) Pulse Ox O2 Delivery O2 Flow Rate FiO2 09/20/21 13:06 Room Air 09/20/21 11:00 98.5 65 18 142/43 (76) 96 98.5 09/19/21 15:34 2.0 Labs Labs Laboratory Tests Test 09/19/21 05:45 09/19/21 06:56 09/19/21 17:06 09/20/21 00:43 Phosphorus Level 2.8 mg/dL (2.6-4.7) Magnesium Level 1.4 mg/dL (1.8-2.4) White Blood Count 7.9 x10^3/uL (4.0-11.0) Red Blood Count 3.42 x10^6/uL (3.50-5.40) Hemoglobin 7.7 g/dL (12.0-15.5) Hematocrit 25.4 % (36.0-47.0) Mean Corpuscular Volume 74 fL (79-100) Mean Corpuscular Hemoglobin 23 pg (25-35) Mean Corpuscular Hemoglobin Concent 30 g/dL (31-37) Red Cell Distribution Width 19.4 % (11.5-14.5) Platelet Count 412 x10^3/uL (140-400) Neutrophils (%) (Auto) 82 % (31-73) Lymphocytes (%) (Auto) 10 % (24-48) Monocytes (%) (Auto) 6 % (0-9) Eosinophils (%) (Auto) 1 % (0-3) Basophils (%) (Auto) 0 % (0-3) Neutrophils # (Auto) 6.5 x10^3/uL (1.8-7.7) Lymphocytes # (Auto) 0.8 x10^3/uL (1.0-4.8) Monocytes # (Auto) 0.5 x10^3/uL (0.0-1.1) Eosinophils # (Auto) 0.1 x10^3/uL (0.0-0.7) Basophils # (Auto) 0.0 x10^3/uL (0.0-0.2) Sodium Level 146 mmol/L (136-145) Potassium Level 3.0 mmol/L (3.5-5.1) Chloride Level 110 mmol/L (98-107) Carbon Dioxide Level 22 mmol/L (21-32) Anion Gap 14 (6-14) Blood Urea Nitrogen 3 mg/dL (7-20) Creatinine 0.5 mg/dL (0.6-1.0) Estimated GFR (Cockcroft-Gault) 122.3 BUN/Creatinine Ratio 6 (6-20) Glucose Level 224 mg/dL (70-99) Calcium Level 6.0 mg/dL (8.5-10.1) Total Bilirubin 0.3 mg/dL (0.2-1.0) Aspartate Amino Transf (AST/SGOT) 9 U/L (15-37) Alanine Aminotransferase (ALT/SGPT) 7 U/L (14-59) Alkaline Phosphatase 67 U/L (46-116) Total Protein 4.6 g/dL (6.4-8.2) Albumin 1.5 g/dL (3.4-5.0) Albumin/Globulin Ratio 0.5 (1.0-1.7) Glucose (Fingerstick) 103 mg/dL (70-99) 137 mg/dL (70-99) Test 09/20/21 06:00 09/20/21 06:07 09/20/21 11:57 Sodium Level 140 mmol/L (136-145) Potassium Level 3.3 mmol/L (3.5-5.1) Chloride Level 106 mmol/L (98-107) Carbon Dioxide Level 31 mmol/L (21-32) Anion Gap 3 (6-14) Blood Urea Nitrogen 4 mg/dL (7-20) Creatinine 0.4 mg/dL (0.6-1.0) Estimated GFR (Cockcroft-Gault) 158.3 Glucose Level 101 mg/dL (70-99) Calcium Level 7.3 mg/dL (8.5-10.1) Phosphorus Level 2.5 mg/dL (2.6-4.7) Magnesium Level 2.6 mg/dL (1.8-2.4) Triglycerides Level 69 mg/dL (0-150) Glucose (Fingerstick) 132 mg/dL (70-99) 124 mg/dL (70-99) Laboratory Tests Test 09/19/21 17:06 09/20/21 00:43 09/20/21 06:00 09/20/21 06:07 Glucose (Fingerstick) 103 mg/dL (70-99) 137 mg/dL (70-99) 132 mg/dL (70-99) Sodium Level 140 mmol/L (136-145) Potassium Level 3.3 mmol/L (3.5-5.1) Chloride Level 106 mmol/L (98-107) Carbon Dioxide Level 31 mmol/L (21-32) Anion Gap 3 (6-14) Blood Urea Nitrogen 4 mg/dL (7-20) Creatinine 0.4 mg/dL (0.6-1.0) Estimated GFR (Cockcroft-Gault) 158.3 Glucose Level 101 mg/dL (70-99) Calcium Level 7.3 mg/dL (8.5-10.1) Phosphorus Level 2.5 mg/dL (2.6-4.7) Magnesium Level 2.6 mg/dL (1.8-2.4) Triglycerides Level 69 mg/dL (0-150) Test 09/20/21 11:57 Glucose (Fingerstick) 124 mg/dL (70-99) Assessment/Plan Assessment/Plan Pt seen on request of general surgery for bilateral ureteral stent placement prior to planned colectomy and ostomy. This procedure is tentatively planned for Monday at 1330. I d/w patient the process involving stents and their purpose. She voiced understanding. ARABELLA GILLESPIE Sep 20, 2021 13:43
[2021-09-20] MEDS: TPN PER PHARMACY MC PRN (14:38)
--- NOTE | 2021-09-20 14:39 | NUR ---
Pharmacy TPN Dosing Note S: SUZAN CATES is a 70 year old F Currently receiving Central Continuous TPN started 09/19/21 B:Pertinent PMH: rectovaginal fistula, NPO Height: 5 feet, 5 inches Weight: 58.1 kg Current diet: NPO LABS: Sodium: 140 Potassium: 3.3 Chloride: 106 Calcium: 7.3 Corrected Calcium: 9.30 Magnesium: 2.6 CO2: 31 SCr: 0.4 Glucose: 101, 132, 124 Albumin: 1.5 AST: 9 ALT: 7 TPN FORMULA: TPN TYPE: Central Continuous AMINO ACIDS: 65 gm DEXTROSE: 230 gm LIPIDS: 30 gm POTASSIUM CHLORIDE: 80 mEq POTASSIUM PHOSPHATE: 20 mmol MAGNESIUM: 10 mEq MULTIPLE VITAMIN: 10 ml TRACE ELEMENTS: 1 ml TPN PLAN: -Serum potassium and phos low - give KPhos 15 mmol bolus x 1 dose. Increase TPN KPhos to 20 mmol/day. -Serum mag high, reduce mag to 10 mEq/day. -Serum CO2 elevated, change KAC to KCl. -TG 69, okay for lipids to start today per [facility] schedule. -BMP, mag, phos tomorrow. R: Continue TPN @ current rate and above formula. Will monitor electrolytes, glucose, and tolerance to TPN. TYRONE HOBBS [facility], 09/20/21 1467
--- NOTE | 2021-09-20 18:05 | NUR ---
Wound Care: Received consult from Dr. Umanzor r/t marking for ostomy. Notified Dr. Umanzor that there is no longer a certified ostomy nurse in the wound clinic, and will be unable to fulfill the consult.
[2021-09-20 19:00] VITALS: BP 131/41
[2021-09-20] MEDS: ATORVASTATIN CALCIUM 20 MG TABLET PO SCH (20:32)
[2021-09-20 20:45] VITALS: BP 130/49
[2021-09-20] MEDS ORDERED: TOTAL PARENTERAL NUTRITION IV SCH (22:00)
[2021-09-20] MEDS ORDERED: AMINO ACID IV SCH (22:00)
[2021-09-20] MEDS ORDERED: DEXTROSE 70% IV SCH (22:00)
[2021-09-20] MEDS ORDERED: [UNRECOGNIZED DRUG - OTHER] IV SCH (22:00)
[2021-09-20 22:47] VITALS: BP 146/59
[2021-09-21] VITALS (7 sets, daily range): BP systolic 110–146; BP diastolic 53–65
[2021-09-21] MEDS: PIPERACILLIN/TAZOBACTAM 3.375 GM in IV NORMAL SALINE 50ML 50 ML IV SCH ×4 (00:39→18:06)
[2021-09-21 01:08] LABS: HEMOGLOBIN A1C 5.5 % (4.8-5.6)
[2021-09-21] MEDS: HEPARIN for SUB-Q USE 5,000 UNIT/ML VIAL. SQ SCH ×4 (03:11→22:00)
[2021-09-21] MEDS: INSULIN LISPRO 300 UNITS/3 ML VIAL. SQ SCH ×4 (06:00→18:00)
[2021-09-21 07:21] LABS: CALCIUM 7.3 mg/dL (8.5-10.1); CREATININE 0.5 mg/dL (0.6-1.0); GFR 122.3; MAGNESIUM 1.8 mg/dL (1.8-2.4); PHOSPHORUS 2.8 mg/dL (2.6-4.7); POTASSIUM 3.6 mmol/L (3.5-5.1)
[2021-09-21] MEDS: PANTOPRAZOLE 40 MG TABLET.DR. PO SCH (07:29)
[2021-09-21] MEDS: LISINOPRIL 20 MG TABLET PO SCH (08:27)
[2021-09-21] MEDS: hydroCHLOROthiazide 12.5 MG CAPSULE PO SCH (08:27)
[2021-09-21] MEDS: ASPIRIN CHEWABLE 81 MG TABLET. PO SCH (08:27)
[2021-09-21] MEDS: hydrALAZINE 25 MG TABLET PO SCH (08:28)
--- NOTE | 2021-09-21 08:44 | PDOC ---
FARIBA SMALL SENIOR SAS DEVELOPER 09/21/21 0844: SURGICAL PROGRESS NOTE DATE: 09/21/21 TIME: 08:43 Subjective abdominal pain less vaginal discharge Vital Signs Vital Signs Date Time Temp Pulse Resp B/P (MAP) Pulse Ox O2 Delivery O2 Flow Rate FiO2 09/21/21 08:28 61 144/65 09/21/21 08:19 98.5 18 95 Room Air 98.5 I&O Intake and Output 09/21/21 07:00 Intake Total 250 ml Balance 250 ml Intake Oral 250 ml # Voids 5 General: Alert, Oriented X3, Cooperative Abdomen: Soft, Other (ttp across mid abdomen) Labs Laboratory Tests Test 09/19/21 17:06 09/20/21 00:43 09/20/21 06:00 09/20/21 06:07 Glucose (Fingerstick) 103 mg/dL (70-99) 137 mg/dL (70-99) 132 mg/dL (70-99) Sodium Level 140 mmol/L (136-145) Potassium Level 3.3 mmol/L (3.5-5.1) Chloride Level 106 mmol/L (98-107) Carbon Dioxide Level 31 mmol/L (21-32) Anion Gap 3 (6-14) Blood Urea Nitrogen 4 mg/dL (7-20) Creatinine 0.4 mg/dL (0.6-1.0) Estimated GFR (Cockcroft-Gault) 158.3 Glucose Level 101 mg/dL (70-99) Hemoglobin A1c 5.5 % (4.8-5.6) Calcium Level 7.3 mg/dL (8.5-10.1) Phosphorus Level 2.5 mg/dL (2.6-4.7) Magnesium Level 2.6 mg/dL (1.8-2.4) Triglycerides Level 69 mg/dL (0-150) Test 09/20/21 11:57 09/20/21 18:11 09/21/21 00:32 09/21/21 06:45 Glucose (Fingerstick) 124 mg/dL (70-99) 137 mg/dL (70-99) 126 mg/dL (70-99) 105 mg/dL (70-99) Test 09/21/21 06:50 Sodium Level 147 mmol/L (136-145) Potassium Level 3.6 mmol/L (3.5-5.1) Chloride Level 108 mmol/L (98-107) Carbon Dioxide Level 29 mmol/L (21-32) Anion Gap 10 (6-14) Blood Urea Nitrogen 4 mg/dL (7-20) Creatinine 0.5 mg/dL (0.6-1.0) Estimated GFR (Cockcroft-Gault) 122.3 Glucose Level 104 mg/dL (70-99) Calcium Level 7.3 mg/dL (8.5-10.1) Phosphorus Level 2.8 mg/dL (2.6-4.7) Magnesium Level 1.8 mg/dL (1.8-2.4) Laboratory Tests Test 09/20/21 11:57 09/20/21 18:11 09/21/21 00:32 09/21/21 06:45 Glucose (Fingerstick) 124 mg/dL (70-99) 137 mg/dL (70-99) 126 mg/dL (70-99) 105 mg/dL (70-99) Test 09/21/21 06:50 Sodium Level 147 mmol/L (136-145) Potassium Level 3.6 mmol/L (3.5-5.1) Chloride Level 108 mmol/L (98-107) Carbon Dioxide Level 29 mmol/L (21-32) Anion Gap 10 (6-14) Blood Urea Nitrogen 4 mg/dL (7-20) Creatinine 0.5 mg/dL (0.6-1.0) Estimated GFR (Cockcroft-Gault) 122.3 Glucose Level 104 mg/dL (70-99) Calcium Level 7.3 mg/dL (8.5-10.1) Phosphorus Level 2.8 mg/dL (2.6-4.7) Magnesium Level 1.8 mg/dL (1.8-2.4) Assessment/Plan perforated diverticulitis tentative plan for OR round, chart 15 min Justicifation of Admission Dx: Justifications for Admission: Justification of Admission Dx: Yes Sepsis: Infection ARLETTE WAY MD 09/21/21 1533: SURGICAL PROGRESS NOTE Assessment/Plan Pt seen and examined. Agree with Ms. Small's note Pt still with abd pain and vaginal drainage but both mildly improved Will plan OR 09/22. R/R/B/A d/w pt. Risks, including, but not limited to: bleeding, infection, damage to surrounding structures, risk of ostomy and anastomotic leak. She appears to understand, her questions are answered and she elects to proceed. FARIBA SMALL APRN Sep 21, 2021 08:[address] MD Sep 21, 2021 15:33
[2021-09-21] MEDS: INSULIN GLARGINE SYRINGE. SQ SCH (09:54)
--- NOTE | 2021-09-21 10:43 | PDOC ---
Date of Service: DATE: 09/21/21 TIME: 10:40 Subjective: Subjective: Pain spread to right abdomen this morning, better after urinated. Less vaginal discharge. Anxious for surgery tomorrow. Objective: Vital Signs: Vital Signs Date Time Temp Pulse Resp B/P (MAP) Pulse Ox O2 Delivery O2 Flow Rate FiO2 09/21/21 08:28 61 144/65 09/21/21 08:19 98.5 18 95 Room Air 98.5 Labs: Laboratory Tests Test 09/20/21 11:57 09/20/21 18:11 09/21/21 00:32 09/21/21 06:45 Glucose (Fingerstick) 124 mg/dL 137 mg/dL 126 mg/dL 105 mg/dL Test 09/21/21 06:50 Sodium Level 147 mmol/L Potassium Level 3.6 mmol/L Chloride Level 108 mmol/L Carbon Dioxide Level 29 mmol/L Anion Gap 10 Blood Urea Nitrogen 4 mg/dL Creatinine 0.5 mg/dL Estimated GFR (Cockcroft-Gault) 122.3 Glucose Level 104 mg/dL Calcium Level 7.3 mg/dL Phosphorus Level 2.8 mg/dL Magnesium Level 1.8 mg/dL PE: GEN: NAD, resting, on TPN LUNGS: CTAB HEART: RRR ABD: BS+, soft, most tender suprapubic NEURO/PSYCH: A & O 3 A/P: Perforated diverticulitis, colovaginal fistula DEWAYNE -- Continue per surgery, following along. Justicifation of Admission Dx: Justifications for Admission: Justification of Admission Dx: Yes Sepsis: Infection ALEXSANDER TAFOYA Sep 21, 2021 10:43
[2021-09-21] MEDS: TPN PER PHARMACY MC PRN (11:01)
--- NOTE | 2021-09-21 11:09 | NUR ---
Pharmacy TPN Dosing Note S: SUZAN CATES is a 70 year old F Currently receiving Central Continuous TPN started 09/19/21 B:Pertinent PMH: rectovaginal fistula, NPO Height: 5 feet, 5 inches Weight: 58.1 kg Current diet: NPO LABS: Sodium: 147 Potassium: 3.6 Chloride: 108 Calcium: 7.3 Corrected Calcium: 9.30 Magnesium: 1.8 CO2: 29 SCr: 0.5 Glucose: 104-137 Albumin: 1.5 AST: 9 ALT: 7 TPN FORMULA: TPN TYPE: Central Continuous AMINO ACIDS: 65 gm DEXTROSE: 230 gm LIPIDS: 30 (MWF) gm POTASSIUM CHLORIDE: 40 mEq POTASSIUM ACETATE: 40 mEq POTASSIUM PHOSPHATE: 20 mmol MAGNESIUM: 10 mEq MULTIPLE VITAMIN: 10 ml TRACE ELEMENTS: 1 ml(s) TPN PLAN: Potassium split over acetate/chloride salts Lipids removed per MWF schedule Total volume increased to help with sodium level R: Change TPN per plan and ordered formula Will monitor electrolytes, glucose, and tolerance to TPN. Shaniqua Agosto RPH, 09/21/21 1090
--- NOTE | 2021-09-21 12:26 | PDOC ---
ELEVATOR EXAMINER AND ADJUSTER PROGRESS NOTE Date of Service: DATE: 09/21/21 TIME: 12:25 Subjective: No interval changes. Objective: Vital Signs: Vital Signs Date Time Temp Pulse Resp B/P (MAP) Pulse Ox O2 Delivery O2 Flow Rate FiO2 09/20/21 07:00 99.5 60 18 109/43 (65) 95 Room Air 99.5 Vital Signs Date Time Temp Pulse Resp B/P (MAP) Pulse Ox O2 Delivery O2 Flow Rate FiO2 09/21/21 10:57 98.7 59 18 110/56 (74) 97 Room Air 98.7 Labs: Laboratory Tests Test 09/20/21 18:11 09/21/21 00:32 09/21/21 06:45 09/21/21 06:50 Glucose (Fingerstick) 137 mg/dL (70-99) H 126 mg/dL (70-99) H 105 mg/dL (70-99) H Sodium Level 147 mmol/L (136-145) H Potassium Level 3.6 mmol/L (3.5-5.1) Chloride Level 108 mmol/L (98-107) H Carbon Dioxide Level 29 mmol/L (21-32) Anion Gap 10 (6-14) Blood Urea Nitrogen 4 mg/dL (7-20) L Creatinine 0.5 mg/dL (0.6-1.0) L Estimated GFR (Cockcroft-Gault) 122.3 Glucose Level 104 mg/dL (70-99) H Calcium Level 7.3 mg/dL (8.5-10.1) L Phosphorus Level 2.8 mg/dL (2.6-4.7) Magnesium Level 1.8 mg/dL (1.8-2.4) Test 09/21/21 11:58 Glucose (Fingerstick) 109 mg/dL (70-99) H Laboratory Tests 09/21/21 06:50 Laboratory Tests 09/21/21 06:50 Physical Exam: GENERAL: No apparent distress. Alert and oriented. HEENT: Head normocephalic, atraumatic. NECK: Supple LUNGS: Clear to auscultation. HEART: RRR, S1, S2 present, pulses intact ABDOMEN: Soft, positive bowel sounds. EXTREMITIES: No cyanosis or edema. NEUROLOGIC: Normal speech, normal tone PSYCHIATRIC: Normal affect, normal mood. SKIN: No ulceration. Assessment & Plan: A/P 70y G0 who was admitted for a possible fistula 1.) Rectovaginal fistula Gen Surg plans sigmoid colectomy tomorrow. Plans to perform with Urology 2.) Potential other colonic fistula multiple abdominal surgery and diverticulitis potential causes. Has only been demonstrated on one imaging, but also the potential to be abscess. 3.) Diverticulosis GI consulted. Recent hospitalization for microperforation. Pt states pain never improved since recent hospitalization. Imaging has not change significantly over last couple of months. Still on abx. 4.) H/o KAN/BSO sounds like for benign 5.) H/o ERT 6.) HTN per primary team 7.) Tob use 8.) Will cont to follow MAXIMO MELGAR MD Sep 21, 2021 12:26
--- NOTE | 2021-09-21 13:23 | PDOC ---
[employer] PROGRESS NOTE Date of Service DOS: DATE: 09/21/21 TIME: 13:20 Chief Complaint Chief Complaint Rectovaginal fistula and Acute abdominal pain Microcytic anemia - not DEWAYNE tobacco use disorder Dm2, insulin Hypokalemia - due to poor po Severe protein calorie malnutrition - l HLD - HTN - General surgery consult, rn security consult IV abx History of Present Illness History of Present Illness 09/21/2021 No acute events overnight. Patient seen examined bedside. Still receiving IV TPN. AF and VSS. Coordination for OR on Monday with urology and gynecology and general surgery for perforated diverticulitis and colovaginal fistula. 09/20/2021 Patient seen and examined at bedside this morning sitting upright in NAD Patient receiving TPN Discussed case with surgery (Noé) over phone Plan for surgery monday, waiting on Noé to see her today Discussed with RN Chart reviewed 09/19/2021 Gen Surg plans sigmoid colectomy, with temporary ileostomy v I think she is refusing blood sugars and insulin dicussed with her girlfriend by phone, on speaker with Patient Vitals/I&O Vitals/I&O: Vital Signs Date Time Temp Pulse Resp B/P (MAP) Pulse Ox O2 Delivery O2 Flow Rate FiO2 09/21/21 10:57 98.7 59 18 110/56 (74) 97 Room Air 98.7 I & O 09/20/21 09/20/21 09/21/21 15:00 23:00 07:00 Intake Total 25 ml 25 ml 200 ml Balance 25 ml 25 ml 200 ml Physical Exam General: Alert, Oriented X3, Cooperative Heart: Regular rate, Normal S1, Normal S2, No murmurs Lungs: Clear Abdomen: Soft, Other (ttp across mid abdomen) Extremities: No cyanosis, No edema, Normal pulses Skin: No significant lesion Labs Labs: Laboratory Tests Test 09/20/21 18:11 09/21/21 00:32 09/21/21 06:45 09/21/21 06:50 Glucose (Fingerstick) 137 mg/dL (70-99) 126 mg/dL (70-99) 105 mg/dL (70-99) Sodium Level 147 mmol/L (136-145) Potassium Level 3.6 mmol/L (3.5-5.1) Chloride Level 108 mmol/L (98-107) Carbon Dioxide Level 29 mmol/L (21-32) Anion Gap 10 (6-14) Blood Urea Nitrogen 4 mg/dL (7-20) Creatinine 0.5 mg/dL (0.6-1.0) Estimated GFR (Cockcroft-Gault) 122.3 Glucose Level 104 mg/dL (70-99) Calcium Level 7.3 mg/dL (8.5-10.1) Phosphorus Level 2.8 mg/dL (2.6-4.7) Magnesium Level 1.8 mg/dL (1.8-2.4) Test 09/21/21 11:58 Glucose (Fingerstick) 109 mg/dL (70-99) Comment Review of Relevant I have reviewed the following items qasim (where applicable) has been applied. Medications: Current Medications Medications (Trade) Dose Ordered Sig/Gael Route PRN Reason Start Time Stop Time Status Last Admin Dose Admin Heparin Sodium (Porcine) (Heparin Sodium) 5,000 unit Q8HRS SQ 09/20/21 14:00 09/21/21 06:00 Potassium Chloride 80 meq/ Potassium Phosphate 20 mmol/ Magnesium Sulfate 10 meq/ Multivitamins 10 ml/Zinc/Copper/ Manganese/ Selenium 1 ml/ Total Parenteral Nutrition/Amino Acids/Dextrose/ Fat Emulsion Intravenous 1,512 ml @ 63 mls/hr TPN CONT IV 09/20/21 22:00 09/21/21 21:59 09/20/21 22:00 Justifications for Admission Other Justification Perforated diverticulitis EVIE RITCHIE MD Sep 21, 2021 13:23
[2021-09-21] MEDS: oxyCODONE/APAP 5/325 1 TAB TABLET PO PRN ×2 (15:19→18:07)
[2021-09-21] MEDS: ATORVASTATIN CALCIUM 20 MG TABLET PO SCH (21:08)
[2021-09-21] MEDS ORDERED: DEXTROSE 70% IV SCH (22:00)
[2021-09-21] MEDS ORDERED: TOTAL PARENTERAL NUTRITION IV SCH (22:00)
[2021-09-21] MEDS ORDERED: AMINO ACID IV SCH (22:00)
[2021-09-21] MEDS ORDERED: [UNRECOGNIZED DRUG - OTHER] IV SCH (22:00)
[2021-09-22] VITALS (8 sets, daily range): BP systolic 80–152; BP diastolic 47–68
[2021-09-22] MEDS: INSULIN LISPRO 300 UNITS/3 ML VIAL. SQ SCH ×4 (05:31→18:00)
[2021-09-22] MEDS: PANTOPRAZOLE 40 MG TABLET.DR. PO SCH (05:32)
[2021-09-22] MEDS: HEPARIN for SUB-Q USE 5,000 UNIT/ML VIAL. SQ SCH ×3 (05:32→20:49)
[2021-09-22] MEDS: PIPERACILLIN/TAZOBACTAM 3.375 GM in IV NORMAL SALINE 50ML 50 ML IV SCH ×4 (05:45→19:08)
[2021-09-22 05:57] LABS: CALCIUM 7.8 mg/dL (8.5-10.1); CREATININE 0.5 mg/dL (0.6-1.0); GFR 122.3; MAGNESIUM 1.8 mg/dL (1.8-2.4); PHOSPHORUS 3.6 mg/dL (2.6-4.7); POTASSIUM 4.6 mmol/L (3.5-5.1)
[2021-09-22] MEDS ORDERED: IV RINGERS,LACTATED 1000ML 1,000 ML IV SCH (06:00)
[2021-09-22] MEDS ORDERED: fentaNYL PF VIAL 100 MCG/2 ML VIAL IVP PRN ×2 (06:00)
[2021-09-22] MEDS ORDERED: PROCHLORPERAZINE 10 MG/2 ML VIAL. IVP PRN (06:00)
[2021-09-22] MEDS ORDERED: HYDROmorphone 2 MG/ML INJ. IVP PRN (06:00)
[2021-09-22] MEDS: hydrALAZINE 25 MG TABLET PO SCH (07:09)
[2021-09-22] MEDS: ASPIRIN CHEWABLE 81 MG TABLET. PO SCH (07:10)
[2021-09-22] MEDS: LISINOPRIL 20 MG TABLET PO SCH (07:10)
[2021-09-22] MEDS: hydroCHLOROthiazide 12.5 MG CAPSULE PO SCH (07:10)
[2021-09-22] MEDS: INSULIN GLARGINE SYRINGE. SQ SCH (07:15)
--- NOTE | 2021-09-22 09:25 | PDOC ---
Date of Service: DATE: 09/22/21 TIME: 09:21 Subjective: Subjective: Pain worse in mornings before urinating. Surgery later today. Questions about ureteral stents. Objective: Vital Signs: Vital Signs Date Time Temp Pulse Resp B/P (MAP) Pulse Ox O2 Delivery O2 Flow Rate FiO2 09/22/21 07:56 96 Room Air 09/22/21 07:10 55 114/60 09/22/21 06:16 97.6 18 97.6 09/21/21 18:35 2.0 Labs: Laboratory Tests Test 09/21/21 11:58 09/21/21 16:59 09/21/21 19:00 09/22/21 05:20 Glucose (Fingerstick) 109 mg/dL 127 mg/dL SARS-CoV-2 Antigen (Rapid) Negative Sodium Level 144 mmol/L Potassium Level 4.6 mmol/L Chloride Level 109 mmol/L Carbon Dioxide Level 28 mmol/L Anion Gap 7 Blood Urea Nitrogen 6 mg/dL Creatinine 0.5 mg/dL Estimated GFR (Cockcroft-Gault) 122.3 Glucose Level 96 mg/dL Calcium Level 7.8 mg/dL Phosphorus Level 3.6 mg/dL Magnesium Level 1.8 mg/dL Test 09/22/21 05:29 Glucose (Fingerstick) 97 mg/dL PE: GEN: NAD LUNGS: CTAB HEART: RRR ABD: soft, lower discomfort NEURO/PSYCH: A & O 3 A/P: Perforated diverticulitis, colovaginal fistula DEWAYNE Rapid COVID negative -- Plans for OR today, will follow. Justicifation of Admission Dx: Justifications for Admission: Justification of Admission Dx: Yes Sepsis: Infection ALEXSANDER TAFOYA Sep 22, 2021 09:25
[2021-09-22] MEDS: TPN PER PHARMACY MC PRN (10:19)
--- NOTE | 2021-09-22 10:20 | NUR ---
Pharmacy TPN Dosing Note S: LOANSUZAN is a 70 year old F Currently receiving Central Continuous TPN started 09/19/21 B:Pertinent PMH: rectovaginal fistula, NPO Height: 5 feet, 5 inches Weight: 58.1 kg Current diet: NPO LABS: Sodium: 144 Potassium: 4.6 Chloride: 109 Calcium: 7.8 Corrected Calcium: 9.80 Magnesium: 1.8 CO2: 28 SCr: 0.5 Glucose: 96 Albumin: 1.5 AST: 9 ALT: 7 TPN FORMULA: TPN TYPE: Central Continuous AMINO ACIDS: 65 gm DEXTROSE: 230 gm LIPIDS: 30 (MWF) gm SODIUM CHLORIDE: - mEq SODIUM ACETATE: mEq SODIUM PHOSPHATE: mmol POTASSIUM CHLORIDE: 20 mEq POTASSIUM ACETATE: 20 mEq POTASSIUM PHOSPHATE: 15 mmol MAGNESIUM: 10 mEq CALCIUM: mEq INSULIN: units MULTIPLE VITAMIN: 10 ml TRACE ELEMENTS: 1 ml(s) TPN PLAN: Lipids on per MWF schedule Sodium improved, continue no sodium in TPN K increasing rapidly, phos also trending up: will reduce KCl and KAce to 20meq, and reduce KPhos to 15mmol Labs in the am. R: Continue TPN as written above. Will monitor electrolytes, glucose, and tolerance to TPN. RADHA MEJIA [facility], 09/22/21 1020
--- NOTE | 2021-09-22 12:18 | PDOC ---
CARDIOVASCULAR SURGICAL TECH PROGRESS NOTE Date of Service: DATE: 09/22/21 TIME: 12:17 Subjective: No interval changes Objective: Vital Signs: Vital Signs Date Time Temp Pulse Resp B/P (MAP) Pulse Ox O2 Delivery O2 Flow Rate FiO2 09/21/21 08:19 98.5 61 18 144/65 (91) 95 Room Air 98.5 09/21/21 18:35 2.0 Vital Signs Date Time Temp Pulse Resp B/P (MAP) Pulse Ox O2 Delivery O2 Flow Rate FiO2 09/22/21 12:07 98.7 66 18 156/70 96 Room Air 98.7 09/21/21 18:35 2.0 Labs: Laboratory Tests Test 09/21/21 16:59 09/21/21 19:00 09/22/21 05:20 09/22/21 05:29 Glucose (Fingerstick) 127 mg/dL (70-99) H 97 mg/dL (70-99) SARS-CoV-2 Antigen (Rapid) Negative (NEGATIVE) Sodium Level 144 mmol/L (136-145) Potassium Level 4.6 mmol/L (3.5-5.1) # Chloride Level 109 mmol/L (98-107) H Carbon Dioxide Level 28 mmol/L (21-32) Anion Gap 7 (6-14) Blood Urea Nitrogen 6 mg/dL (7-20) L Creatinine 0.5 mg/dL (0.6-1.0) L Estimated GFR (Cockcroft-Gault) 122.3 Glucose Level 96 mg/dL (70-99) Calcium Level 7.8 mg/dL (8.5-10.1) L Phosphorus Level 3.6 mg/dL (2.6-4.7) Magnesium Level 1.8 mg/dL (1.8-2.4) Test 09/22/21 11:57 Glucose (Fingerstick) 83 mg/dL (70-99) Laboratory Tests 09/22/21 05:20 Laboratory Tests 09/22/21 05:20 Physical Exam: GENERAL: No apparent distress. Alert and oriented. HEENT: Head normocephalic, atraumatic. NECK: Supple LUNGS: Clear to auscultation. HEART: RRR, S1, S2 present, pulses intact ABDOMEN: Soft, positive bowel sounds. EXTREMITIES: No cyanosis or edema. NEUROLOGIC: Normal speech, normal tone PSYCHIATRIC: Normal affect, normal mood. SKIN: No ulceration. Assessment & Plan: A/P 70y G0 who was admitted for a possible fistula 1.) Rectovaginal fistula surgery today 2.) Potential other colonic fistula multiple abdominal surgery and diverticulitis potential causes. Has only been demonstrated on one imaging, but also the potential to be abscess. 3.) Diverticulosis GI consulted. Recent hospitalization for microperforation. Pt states pain never improved since recent hospitalization. Imaging has not change significantly over last couple of months. Still on abx. 4.) H/o KAN/BSO sounds like for benign 5.) H/o ERT 6.) HTN per primary team 7.) Tob use 8.) Will cont to follow MAXIMO MELGAR MD Sep 22, 2021 12:18
[2021-09-22] MEDS ORDERED: DEXAMETHASONE SOD PHOS 4 MG/ML VIAL ONE ×2 (12:28→12:57)
[2021-09-22] MEDS ORDERED: PROPOFOL 10 MG/ML (20ML) VIAL. IV ONE (12:28)
[2021-09-22] MEDS ORDERED: ONDANSETRON PF 4 MG/2 ML VIAL. ONE ×2 (12:28→12:57)
[2021-09-22] MEDS ORDERED: SEVOFLURANE 61 TO 120 MINUTES. IH ONE (12:28)
[2021-09-22] MEDS ORDERED: LIDOCAINE 2% PF 5 ML VIAL. ONE (12:28)
[2021-09-22] MEDS ORDERED: ROCURONIUM 50 MG/5 ML VIAL. ONE ×2 (12:29→12:57)
[2021-09-22] MEDS ORDERED: fentaNYL PF VIAL 100 MCG/2 ML VIAL ONE (12:29)
[2021-09-22] MEDS ORDERED: HYDROmorphone 2 MG/ML INJ. ONE (12:30)
--- NOTE | 2021-09-22 12:38 | PDOC ---
SURGICAL PROGRESS NOTE DATE: 09/22/21 TIME: 12:36 Subjective Pre-Op Note 70 yo F with perforated diverticulitis and colovaginal fistula TO OR for repair. R/R/B/A d/w pt and pt's supportive friend. Risks, including, but not limited to: bleeding, infection, damage to surrounding structures, risk of anesthesia, risk of anastomotic leak, need for ostomy. They appear to understand, their questions are answered and they elect to proceed. Vital Signs Vital Signs Date Time Temp Pulse Resp B/P (MAP) Pulse Ox O2 Delivery O2 Flow Rate FiO2 09/22/21 12:07 98.7 66 18 156/70 96 Room Air 98.7 09/21/21 18:35 2.0 I&O Intake and Output 09/22/21 06:59 Intake Total 0 ml Balance 0 ml Intake Oral 0 ml # Voids 3 Labs Laboratory Tests Test 09/20/21 18:11 09/21/21 00:32 09/21/21 06:45 09/21/21 06:50 Glucose (Fingerstick) 137 mg/dL (70-99) 126 mg/dL (70-99) 105 mg/dL (70-99) Sodium Level 147 mmol/L (136-145) Potassium Level 3.6 mmol/L (3.5-5.1) Chloride Level 108 mmol/L (98-107) Carbon Dioxide Level 29 mmol/L (21-32) Anion Gap 10 (6-14) Blood Urea Nitrogen 4 mg/dL (7-20) Creatinine 0.5 mg/dL (0.6-1.0) Estimated GFR (Cockcroft-Gault) 122.3 Glucose Level 104 mg/dL (70-99) Calcium Level 7.3 mg/dL (8.5-10.1) Phosphorus Level 2.8 mg/dL (2.6-4.7) Magnesium Level 1.8 mg/dL (1.8-2.4) Test 09/21/21 11:58 09/21/21 16:59 09/21/21 19:00 09/22/21 05:20 Glucose (Fingerstick) 109 mg/dL (70-99) 127 mg/dL (70-99) SARS-CoV-2 Antigen (Rapid) Negative (NEGATIVE) Sodium Level 144 mmol/L (136-145) Potassium Level 4.6 mmol/L (3.5-5.1) Chloride Level 109 mmol/L (98-107) Carbon Dioxide Level 28 mmol/L (21-32) Anion Gap 7 (6-14) Blood Urea Nitrogen 6 mg/dL (7-20) Creatinine 0.5 mg/dL (0.6-1.0) Estimated GFR (Cockcroft-Gault) 122.3 Glucose Level 96 mg/dL (70-99) Calcium Level 7.8 mg/dL (8.5-10.1) Phosphorus Level 3.6 mg/dL (2.6-4.7) Magnesium Level 1.8 mg/dL (1.8-2.4) Test 09/22/21 05:29 09/22/21 11:57 Glucose (Fingerstick) 97 mg/dL (70-99) 83 mg/dL (70-99) Laboratory Tests Test 09/21/21 16:59 09/21/21 19:00 09/22/21 05:20 09/22/21 05:29 Glucose (Fingerstick) 127 mg/dL (70-99) 97 mg/dL (70-99) SARS-CoV-2 Antigen (Rapid) Negative (NEGATIVE) Sodium Level 144 mmol/L (136-145) Potassium Level 4.6 mmol/L (3.5-5.1) Chloride Level 109 mmol/L (98-107) Carbon Dioxide Level 28 mmol/L (21-32) Anion Gap 7 (6-14) Blood Urea Nitrogen 6 mg/dL (7-20) Creatinine 0.5 mg/dL (0.6-1.0) Estimated GFR (Cockcroft-Gault) 122.3 Glucose Level 96 mg/dL (70-99) Calcium Level 7.8 mg/dL (8.5-10.1) Phosphorus Level 3.6 mg/dL (2.6-4.7) Magnesium Level 1.8 mg/dL (1.8-2.4) Test 09/22/21 11:57 Glucose (Fingerstick) 83 mg/dL (70-99) Justicifation of Admission Dx: Justifications for Admission: Justification of Admission Dx: Yes Sepsis: Infection ARLETTE WAY MD Sep 22, 2021 12:37
[2021-09-22] MEDS ORDERED: BUPIVACAINE-EPI 0.5% 30 ML VIAL KIT. ONE (12:56)
[2021-09-22] MEDS ORDERED: FAMOTIDINE 20 MG/2 ML VIAL ONE (12:57)
[2021-09-22] MEDS ORDERED: KETOROLAC 30 MG/ML VIAL. ONE ×2 (12:57→18:42)
[2021-09-22] MEDS ORDERED: KETAMINE HCL IN NACL, ISO-OSM 50 MG/5 ML SYRINGE ONE (13:57)
--- NOTE | 2021-09-22 13:58 | PDOC4 ---
OPERATIVE NOTE Date: Date: Sep 22, 2021 Pre-Op Diagnosis: Diverticulitis Post-Op Diagnosis: same Procedure Performed: Cystoscopy and bilateral ureteral stent placement Surgeon: Sabas Hernandez MD Anesthesia Type: General Blood Loss: 0cc Specimans Obtained: none Findings: Normal Normal trigone, no masses in the bladder Complications: none Operative Note: The patient was taken to the OR on the above date after informed consent. General anesthesia was administered and the patient placed in the dorsal li thotomy position. After the patient was prepped and draped cystoscopy was performed with a rigid cystoscope. This revealed no abnormalities. The left ureter was cannulated with an open ended catheter and left at 24 cm and the right stent was placed in similar fashion. The bladder was then drained with a hernandez and the stents secured in the tubing. The case was then left under the ca re of Dr Gomez for his portion of the procedures. Plan: REmove stent per Dr. Gomez's discretion ELENA HERNANDEZ MD Sep 22, 2021 13:58
--- NOTE | 2021-09-22 14:23 | PDOC ---
[facility] [facility] PROGRESS NOTE Date of Service DOS: DATE: 09/22/21 TIME: 14:20 Chief Complaint Chief Complaint Rectovaginal fistula and Acute abdominal pain Microcytic anemia - not DEWAYNE. Will type and screen post-op tobacco use disorder Dm2, insulin Hypokalemia - due to poor po Severe protein calorie malnutrition - l HLD - HTN - General surgery consult, obstetrics gynecology md consult IV abx History of Present Illness History of Present Illness 09/22: No overnight events. On TPN. N.p.o. for operative repair of perforated diverticulitis with colovaginal fistula. To OR today. 09/21/2021 No acute events overnight. Patient seen examined bedside. Still receiving IV TPN. AF and VSS. Coordination for OR on Monday with urology and gynecology and general surgery for perforated diverticulitis and colovaginal fistula. 09/20/2021 Patient seen and examined at bedside this morning sitting upright in NAD Patient receiving TPN Discussed case with surgery (Noé) over phone Plan for surgery monday, waiting on Noé to see her today Discussed with RN Chart reviewed 09/19/2021 Gen Surg plans sigmoid colectomy, with temporary ileostomy v I think she is refusing blood sugars and insulin dicussed with her girlfriend by phone, on speaker with Patient Vitals/I&O Vitals/I&O: Vital Signs Date Time Temp Pulse Resp B/P (MAP) Pulse Ox O2 Delivery O2 Flow Rate FiO2 09/22/21 12:07 98.7 66 18 156/70 96 Room Air 98.7 09/21/21 18:35 2.0 I & O 09/21/21 09/21/21 09/22/21 15:00 23:00 07:00 Intake Total 0 ml 0 ml Balance 0 ml 0 ml Physical Exam General: Alert, Oriented X3, Cooperative Heart: Regular rate, Normal S1, Normal S2, No murmurs Lungs: Clear Abdomen: Soft, Other (ttp across mid abdomen) Extremities: No cyanosis, No edema, Normal pulses Skin: No significant lesion Labs Labs: Laboratory Tests Test 09/21/21 16:59 09/21/21 19:00 09/22/21 05:20 09/22/21 05:29 Glucose (Fingerstick) 127 mg/dL (70-99) 97 mg/dL (70-99) SARS-CoV-2 Antigen (Rapid) Negative (NEGATIVE) Sodium Level 144 mmol/L (136-145) Potassium Level 4.6 mmol/L (3.5-5.1) Chloride Level 109 mmol/L (98-107) Carbon Dioxide Level 28 mmol/L (21-32) Anion Gap 7 (6-14) Blood Urea Nitrogen 6 mg/dL (7-20) Creatinine 0.5 mg/dL (0.6-1.0) Estimated GFR (Cockcroft-Gault) 122.3 Glucose Level 96 mg/dL (70-99) Calcium Level 7.8 mg/dL (8.5-10.1) Phosphorus Level 3.6 mg/dL (2.6-4.7) Magnesium Level 1.8 mg/dL (1.8-2.4) Test 09/22/21 11:57 Glucose (Fingerstick) 83 mg/dL (70-99) Comment Review of Relevant I have reviewed the following items qasim (where applicable) has been applied. Medications: Current Medications Medications (Trade) Dose Ordered Sig/Gael Route PRN Reason Start Time Stop Time Status Last Admin Dose Admin Potassium Chloride 40 meq/ Potassium Acetate 40 meq/Potassium Phosphate 20 mmol/ Magnesium Sulfate 10 meq/ Multivitamins 10 ml/Zinc/Copper/ Manganese/ Selenium 1 ml/ Total Parenteral Nutrition/Amino Acids/Dextrose/ Fat Emulsion Intravenous 1,800 ml @ 75 mls/hr TPN CONT IV 09/21/21 22:00 09/22/21 21:59 09/21/21 21:10 Fentanyl Citrate (Fentanyl 2ml Vial) 50 mcg PRN Q5MIN PRN IVP MODERATE PAIN 4-6 09/22/21 06:00 09/23/21 05:59 09/22/21 07:56 Justifications for Admission Other Justification Perforated diverticulitis VERONICA TURK MD Sep 22, 2021 14:23
[2021-09-22] MEDS ORDERED: DEXMEDETOMIDINE 400 MCG in IV NORMAL SALINE 100ML 96 ML IV PRN (14:30)
[2021-09-22] MEDS ORDERED: fentaNYL PF VIAL 250 MCG/5 ML VIAL ONE (14:35)
[2021-09-22] MEDS ORDERED: ESMOLOL 100 MG/10 ML VIAL. IVP ONE (14:38)
[2021-09-22] MEDS ORDERED: GLYCOPYRROLATE 1 MG/5 ML VIAL. ONE (15:08)
[2021-09-22] MEDS ORDERED: NEOSTIGMINE METHYLSULFATE 5 MG/5 ML SYRINGE. ONE (15:08)
[2021-09-22] MEDS ORDERED: SEVOFLURANE > 120 MINUTES. IH ONE (15:21)
[2021-09-22] MEDS ORDERED: SURGICEL HEMOSTAT 4X8 EACH. ONE (15:38)
[2021-09-22] MEDS ORDERED: IPRATRPIUM/ALBUTEROL 0.5/2.5MG 3 ML NEBU. NEB ONE (17:30)
[2021-09-22] MEDS ORDERED: ONDANSETRON PF 4 MG/2 ML VIAL. IVP PRN (17:45)
[2021-09-22] MEDS ORDERED: NALOXONE 0.4 MG/ML VIAL. IV PRN (17:45)
[2021-09-22] MEDS: IV NORMAL SALINE 1000ML BAG 1,000 ML IV SCH (17:45)
[2021-09-22] MEDS ORDERED: 0.9 % SODIUM CHLORIDE 10 ML DISP.SYRIN. IV PRN (17:45)
[2021-09-22] MEDS: IV RINGERS,LACTATED 1000ML 1,000 ML IV SCH (17:45)
[2021-09-22] MEDS ORDERED: ENOXAPARIN 40 MG/0.4 ML SYRINGE. SQ SCH (17:45)
--- NOTE | 2021-09-22 17:50 | PDOC4 ---
OPERATIVE NOTE Date: Date: Sep 22, 2021 Pre-Op Diagnosis: Tranquillity vaginal fistula, perforated diverticulitis Post-Op Diagnosis: same, coloenteral fistula Procedure Performed: laparoscopic converted to open exploration, extensive lysis of adhesions, toth's procedure, small bowel resection Surgeon: Ben Way Anesthesia Type: GETA plus local Blood Loss: 200 Specimans Obtained: sigmoid/high rectum with stitch in distal end, small bowel Findings: extensive, chronic adhesions in deep pelvis, extensively abnormal sigmoid colon with suspected vaginal fistula on left side, coloenteral fistula, no obvious bladder fistula, normal liver Complications: none Operative Note: After obtaining informed consent, patient was taken to OR, induced under GETA and prepped in the usual fashion. 5 mm ports x 2 placed in BUQ under laparoscopic guidance. Abdominal cavity was explored and normal except noted as above. Given extensive damage, open procedure is indicated. Lower midline incision was made with cautery and fascia divided in midline. Small bowel was mobilized off the extensively scarred area and fistula was noted. LEYDI 75 was used to divide small bowel proximal and distal to area of concern. Mesentery was controlled with ligasure. Specimen sent to pathology for evaluation. Side to side stapled anastomosis created with LEYDI 75 and sealed with TA 60. Anastomosis noted to be patent, under no tension and completely viable. Remaining small bowel was normal. Cecum, transverse and descending colon was normal. Extensively scarred in sigmoid noted. Extensive, hard adhesions noted. Difficult dissection was performed in deep pelvis. Ureteral stents were vital in avoiding injury to ureters bilaterally. Bladder appeared to be uninvolved. LEYDI 75 used to divide sigmoid proximal to area of concern. Mesentery taken close to bowel with ligasure. Mid rectum divided across viable bowel using contour stapler. Specimen sent to pathology for evaluation with stitch in distal end. Area of vaginal fistula suspected on left side wall but an obvious defect was not visualized. Peritoneum overlying this was reapproximated with 3 0 vicryl. Given extensive infection and damage and pt's comorbidities, an anastomosis, even with protecting ileostomy, would result in further morbidity. End colostomy brought up LUQ and tacked to fascia with 3 0 vicryl. Copious irrigation. No evidence of bleeding or other pathology. Surgicel placed in deep pelvis. Fascia repaired with 0 looped PDS. Skin repaired with 3 0 vicryl and 4 0 monocryl with nichole left in wound and secured with 3 0 nylon. Dressing placed. Colostomy matured with 3 0 vicryl and ostomy noted to be patent to level of fascia. Patient tolerated procedure although noted to have episodes of tachycardia. All counts correct. Wound class is 4. ARLETTE WAY MD Sep 22, 2021 17:50
[2021-09-22] MEDS: INSULIN LISPRO 100 UNIT/ML 3ML VIAL for OP,RR ONLY. SQ PRN ×2 (17:53→18:50)
[2021-09-22] MEDS ORDERED: MORPHINE SULFATE 2 MG/ML INJ. ONE (17:54)
[2021-09-22] MEDS: MORPHINE SULFATE 2 MG/ML INJ. IVP PRN ×2 (17:57→18:03)
[2021-09-22] MEDS: HYDROmorphone 12mg/30ml PCA 30 ML IV PRN (18:02)
[2021-09-22 18:18] LABS: BASE EXCESS ABG -2 mmol/L (-3-3); HCO3 ABG 24 mmol/L (21-28); PCO2 ABG 46 mmHg (35-46); PO2 ABG 72 mmHg (65-108); SAT O2 ABG 92 % (92-99)
[2021-09-22 18:19] LABS: FIO2 ABG 100% NRB
[2021-09-22] MEDS ORDERED: KETOROLAC 15 MG/ML VIAL. IVP ONE (18:45)
--- NOTE | 2021-09-22 18:57 | RAD ---
XR ABDOMEN 1V History: Status post exploratory laparoscopy. Comparison: None. Technique: Portable AP supine radiograph the abdomen Findings: Devices: Gastric tube tip projects in left upper quadrant in the region of the stomach. Proximal side -port is in the region of the distal esophagus. Linear density along the midline abdomen may represen t Nikki drain. Bowel gas pattern: Nonspecific with gas filled ascending and transverse colon. Chain sutures in the p [place]in. Free air: Hypodensity in the left midabdomen may represent supine appearance of free air, not unexpec david for recent postoperative setting. Abnormal calcifications: None. Bones: Degenerative changes of the spine and left hip. Other: Right upper quadrant peritoneal clips and cholecystectomy clips. Impression: 1. Gastric tube with proximal side-port in the region of the distal esophagus. Recommend advancement 5 to 10 cm to ensure entirely intragastric. 2. Nonspecific gaseous distention of the transverse colon and postoperative free air in the left abd omen. Electronically signed by: Yadiel Rodriguez MD (09/22/2021 6:55 PM) [facility]
[2021-09-22 19:07] LABS: HEMOGLOBIN 8.1 g/dL (12.0-15.5); RED BLOOD COUNT 3.49 x10^6/uL (3.50-5.40); RED CELL DISTRIBUTION WIDTH 18.9 % (11.5-14.5); WHITE BLOOD COUNT 24.3 x10^3/uL (4.0-11.0)
[2021-09-22] MEDS: ATORVASTATIN CALCIUM 20 MG TABLET PO SCH (20:48)
[2021-09-22] MEDS ORDERED: [UNRECOGNIZED DRUG - OTHER] IV SCH (22:00)
[2021-09-22] MEDS ORDERED: TOTAL PARENTERAL NUTRITION IV SCH (22:00)
[2021-09-22] MEDS ORDERED: AMINO ACID IV SCH (22:00)
[2021-09-22] MEDS ORDERED: DEXTROSE 70% IV SCH (22:00)
[2021-09-23] VITALS (19 sets, daily range): BP systolic 85–131; BP diastolic 38–64
[2021-09-23 05:38] LABS: BASO % 0 % (0-3); EOS % 0 % (0-3); HEMATOCRIT 24.5 % (36.0-47.0); HEMOGLOBIN 7.6 g/dL (12.0-15.5); LYMPH % 6 % (24-48); MEAN CORPUSCULAR HEMOGLOBIN 23 pg (25-35); MEAN CORPUSCULAR HGB CONC 31 g/dL (31-37); MEAN CORPUSCULAR VOLUME 74 fL (79-100); MONO # 0.8 x10^3/uL (0.0-1.1); MONO % 6 % (0-9); NEUT # 13.5 x10^3/uL (1.8-7.7); NEUT % 88 % (31-73); PLATELET COUNT 387 x10^3/uL (140-400); RED BLOOD COUNT 3.31 x10^6/uL (3.50-5.40); RED CELL DISTRIBUTION WIDTH 18.7 % (11.5-14.5); WHITE BLOOD COUNT 15.4 x10^3/uL (4.0-11.0)
[2021-09-23 06:00] LABS: MAGNESIUM 1.6 mg/dL (1.8-2.4); PHOSPHORUS 5.6 mg/dL (2.6-4.7)
[2021-09-23] MEDS: HEPARIN for SUB-Q USE 5,000 UNIT/ML VIAL. SQ SCH ×3 (06:00→22:00)
[2021-09-23] MEDS: INSULIN LISPRO 300 UNITS/3 ML VIAL. SQ SCH ×3 (06:00→12:00)
[2021-09-23] MEDS: PIPERACILLIN/TAZOBACTAM 3.375 GM in IV NORMAL SALINE 50ML 50 ML IV SCH ×4 (06:00→18:20)
[2021-09-23 06:03] LABS: POTASSIUM 5.5 mmol/L (3.5-5.1)
[2021-09-23] MEDS: ONDANSETRON PF 4 MG/2 ML VIAL. IVP PRN (06:17)
[2021-09-23] MEDS: IV RINGERS,LACTATED 1000ML 1,000 ML IV SCH ×3 (08:26→23:45)
[2021-09-23] MEDS: ASPIRIN CHEWABLE 81 MG TABLET. PO SCH (09:00)
[2021-09-23] MEDS: hydroCHLOROthiazide 12.5 MG CAPSULE PO SCH (09:00)
[2021-09-23] MEDS: LISINOPRIL 20 MG TABLET PO SCH (09:00)
[2021-09-23] MEDS: INSULIN GLARGINE SYRINGE. SQ SCH (09:00)
[2021-09-23] MEDS: PANTOPRAZOLE 40 MG TABLET.DR. PO SCH (09:00)
[2021-09-23] MEDS: hydrALAZINE 25 MG TABLET PO SCH (09:00)
--- NOTE | 2021-09-23 09:12 | PDOC ---
SURGICAL PROGRESS NOTE DATE: 09/23/21 TIME: 09:11 Subjective pain, no nausea Vital Signs Vital Signs Date Time Temp Pulse Resp B/P (MAP) Pulse Ox O2 Delivery O2 Flow Rate FiO2 09/23/21 08:53 91 Room Air 09/23/21 08:00 98.3 69 17 90/51 (64) 4.0 98.3 I&O Intake and Output 09/23/21 07:00 Intake Total 2850 ml Output Total 1220 ml Balance 1630 ml IV Total 2850 ml Output Urine Total 1020 ml Estimated Blood Loss 200 ml # Voids 1 PATIENT HAS A GRIGGS: Yes General: Alert, Cooperative HEENT: Other (ng in place) Abdomen: Soft, Other (dressing dry, ostomy pink) Labs Laboratory Tests Test 09/21/21 11:58 09/21/21 16:59 09/21/21 19:00 09/22/21 05:20 Glucose (Fingerstick) 109 mg/dL (70-99) 127 mg/dL (70-99) Coronavirus (COVID-19)(PCR) Not detected (NOT DETECTD) SARS-CoV-2 Antigen (Rapid) Negative (NEGATIVE) Sodium Level 144 mmol/L (136-145) Potassium Level 4.6 mmol/L (3.5-5.1) Chloride Level 109 mmol/L (98-107) Carbon Dioxide Level 28 mmol/L (21-32) Anion Gap 7 (6-14) Blood Urea Nitrogen 6 mg/dL (7-20) Creatinine 0.5 mg/dL (0.6-1.0) Estimated GFR (Cockcroft-Gault) 122.3 Glucose Level 96 mg/dL (70-99) Calcium Level 7.8 mg/dL (8.5-10.1) Phosphorus Level 3.6 mg/dL (2.6-4.7) Magnesium Level 1.8 mg/dL (1.8-2.4) Test 09/22/21 05:29 09/22/21 11:57 09/22/21 17:15 09/22/21 18:15 Glucose (Fingerstick) 97 mg/dL (70-99) 83 mg/dL (70-99) 186 mg/dL (70-99) O2 Saturation 92 % (92-99) Arterial Blood pH 7.34 (7.35-7.45) Arterial Blood pCO2 at Patient Temp 46 mmHg (35-46) Arterial Blood pO2 at Patient Temp 72 mmHg (65-108) Arterial Blood HCO3 24 mmol/L (21-28) Arterial Blood Base Excess -2 mmol/L (-3-3) FiO2 100% nrb Test 09/22/21 18:45 09/22/21 18:56 09/23/21 05:10 Glucose (Fingerstick) 187 mg/dL (70-99) White Blood Count 24.3 x10^3/uL (4.0-11.0) 15.4 x10^3/uL (4.0-11.0) Red Blood Count 3.49 x10^6/uL (3.50-5.40) 3.31 x10^6/uL (3.50-5.40) Hemoglobin 8.1 g/dL (12.0-15.5) 7.6 g/dL (12.0-15.5) Hematocrit 26.0 % (36.0-47.0) 24.5 % (36.0-47.0) Mean Corpuscular Volume 75 fL (79-100) 74 fL (79-100) Mean Corpuscular Hemoglobin 23 pg (25-35) 23 pg (25-35) Mean Corpuscular Hemoglobin Concent 31 g/dL (31-37) 31 g/dL (31-37) Red Cell Distribution Width 18.9 % (11.5-14.5) 18.7 % (11.5-14.5) Platelet Count 510 x10^3/uL (140-400) 387 x10^3/uL (140-400) Neutrophils (%) (Auto) 88 % (31-73) Lymphocytes (%) (Auto) 6 % (24-48) Monocytes (%) (Auto) 6 % (0-9) Eosinophils (%) (Auto) 0 % (0-3) Basophils (%) (Auto) 0 % (0-3) Neutrophils # (Auto) 13.5 x10^3/uL (1.8-7.7) Lymphocytes # (Auto) 1.0 x10^3/uL (1.0-4.8) Monocytes # (Auto) 0.8 x10^3/uL (0.0-1.1) Eosinophils # (Auto) 0.0 x10^3/uL (0.0-0.7) Basophils # (Auto) 0.0 x10^3/uL (0.0-0.2) Sodium Level 143 mmol/L (136-145) Potassium Level 5.5 mmol/L (3.5-5.1) Chloride Level 109 mmol/L (98-107) Carbon Dioxide Level 26 mmol/L (21-32) Anion Gap 8 (6-14) Blood Urea Nitrogen 18 mg/dL (7-20) Creatinine 1.0 mg/dL (0.6-1.0) Estimated GFR (Cockcroft-Gault) 55.0 Glucose Level 133 mg/dL (70-99) Calcium Level 8.0 mg/dL (8.5-10.1) Phosphorus Level 5.6 mg/dL (2.6-4.7) Magnesium Level 1.6 mg/dL (1.8-2.4) Laboratory Tests Test 09/22/21 11:57 09/22/21 17:15 09/22/21 18:15 09/22/21 18:45 Glucose (Fingerstick) 83 mg/dL (70-99) 186 mg/dL (70-99) 187 mg/dL (70-99) O2 Saturation 92 % (92-99) Arterial Blood pH 7.34 (7.35-7.45) Arterial Blood pCO2 at Patient Temp 46 mmHg (35-46) Arterial Blood pO2 at Patient Temp 72 mmHg (65-108) Arterial Blood HCO3 24 mmol/L (21-28) Arterial Blood Base Excess -2 mmol/L (-3-3) FiO2 100% nrb Test 09/22/21 18:56 09/23/21 05:10 White Blood Count 24.3 x10^3/uL (4.0-11.0) 15.4 x10^3/uL (4.0-11.0) Red Blood Count 3.49 x10^6/uL (3.50-5.40) 3.31 x10^6/uL (3.50-5.40) Hemoglobin 8.1 g/dL (12.0-15.5) 7.6 g/dL (12.0-15.5) Hematocrit 26.0 % (36.0-47.0) 24.5 % (36.0-47.0) Mean Corpuscular Volume 75 fL (79-100) 74 fL (79-100) Mean Corpuscular Hemoglobin 23 pg (25-35) 23 pg (25-35) Mean Corpuscular Hemoglobin Concent 31 g/dL (31-37) 31 g/dL (31-37) Red Cell Distribution Width 18.9 % (11.5-14.5) 18.7 % (11.5-14.5) Platelet Count 510 x10^3/uL (140-400) 387 x10^3/uL (140-400) Neutrophils (%) (Auto) 88 % (31-73) Lymphocytes (%) (Auto) 6 % (24-48) Monocytes (%) (Auto) 6 % (0-9) Eosinophils (%) (Auto) 0 % (0-3) Basophils (%) (Auto) 0 % (0-3) Neutrophils # (Auto) 13.5 x10^3/uL (1.8-7.7) Lymphocytes # (Auto) 1.0 x10^3/uL (1.0-4.8) Monocytes # (Auto) 0.8 x10^3/uL (0.0-1.1) Eosinophils # (Auto) 0.0 x10^3/uL (0.0-0.7) Basophils # (Auto) 0.0 x10^3/uL (0.0-0.2) Sodium Level 143 mmol/L (136-145) Potassium Level 5.5 mmol/L (3.5-5.1) Chloride Level 109 mmol/L (98-107) Carbon Dioxide Level 26 mmol/L (21-32) Anion Gap 8 (6-14) Blood Urea Nitrogen 18 mg/dL (7-20) Creatinine 1.0 mg/dL (0.6-1.0) Estimated GFR (Cockcroft-Gault) 55.0 Glucose Level 133 mg/dL (70-99) Calcium Level 8.0 mg/dL (8.5-10.1) Phosphorus Level 5.6 mg/dL (2.6-4.7) Magnesium Level 1.6 mg/dL (1.8-2.4) Assessment/Plan supportive care hypotension management Justicifation of Admission Dx: Justifications for Admission: Justification of Admission Dx: Yes Sepsis: Infection FARIBA SMALL APRN Sep 23, 2021 09:12
[2021-09-23] MEDS ORDERED: SODIUM BICARB ADULT 8.4% 50 MEQ/50 ML DISP.SYRIN. IV ONE (09:15)
[2021-09-23] MEDS ORDERED: ALBUMIN HUMAN 5% 500 ML IV ONE (09:15)
--- NOTE | 2021-09-23 09:24 | PDOC ---
[employer] PROGRESS NOTE Date of Service DOS: DATE: 09/23/21 TIME: 09:18 Chief Complaint Chief Complaint Rectovaginal fistula and Acute abdominal pain. 09/22: Status post bilateral ureteral stent placement laparoscopic converted to open lysis of adhesions Esparza's procedure and small bowel resection left quadrant colostomy Microcytic anemia - not DEWAYNE. Will type and screen post-op tobacco use disorder Dm2, insulin Hypokalemia - due to poor po Severe protein calorie malnutrition - l HLD - HTN - General surgery consult, fence erector consult IV abx History of Present Illness History of Present Illness 09/23: Transferred to ICU for supportive care postoperatively. K5.5, Hb 7.6, blood pressure low 80/50. Left hip pain, she thinks is positional. Bicarb, albumin, and levophed ordered. 09/22: To OR: Status post bilateral ureteral stent placement laparoscopic converted to open lysis of adhesions Esparza's procedure and small bowel resection left quadrant colostomy 09/21: No acute events overnight. Patient seen examined bedside. Still receiving IV TPN. AF and VSS. Coordination for OR on Monday with urology and gynecology and general surgery for perforated diverticulitis and colovaginal fistula. 09/20: Patient seen and examined at bedside this morning sitting upright in NAD. Patient receiving TPN. Plan for surgery monday, waiting on Thornton to see her today 09/19: Gen Surg plans sigmoid colectomy, with temporary ileostomy. Vitals/I&O Vitals/I&O: Vital Signs Date Time Temp Pulse Resp B/P (MAP) Pulse Ox O2 Delivery O2 Flow Rate FiO2 09/23/21 08:53 91 Room Air 09/23/21 08:00 98.3 69 17 90/51 (64) 4.0 98.3 I & O 09/22/21 09/22/21 09/23/21 15:00 23:00 07:00 Intake Total 50 ml 1600 ml 1200 ml Output Total 1020 ml 200 ml Balance 50 ml 580 ml 1000 ml Physical Exam General: Alert, Cooperative Heart: Regular rate, Normal S1, Normal S2, No murmurs Lungs: Clear Abdomen: Soft, Other (dressing dry, ostomy pink) Extremities: No cyanosis, No edema, Normal pulses Skin: No significant lesion Labs Labs: Laboratory Tests Test 09/22/21 11:57 09/22/21 17:15 09/22/21 18:15 09/22/21 18:45 Glucose (Fingerstick) 83 mg/dL (70-99) 186 mg/dL (70-99) 187 mg/dL (70-99) O2 Saturation 92 % (92-99) Arterial Blood pH 7.34 (7.35-7.45) Arterial Blood pCO2 at Patient Temp 46 mmHg (35-46) Arterial Blood pO2 at Patient Temp 72 mmHg (65-108) Arterial Blood HCO3 24 mmol/L (21-28) Arterial Blood Base Excess -2 mmol/L (-3-3) FiO2 100% nrb Test 09/22/21 18:56 09/23/21 05:10 White Blood Count 24.3 x10^3/uL (4.0-11.0) 15.4 x10^3/uL (4.0-11.0) Red Blood Count 3.49 x10^6/uL (3.50-5.40) 3.31 x10^6/uL (3.50-5.40) Hemoglobin 8.1 g/dL (12.0-15.5) 7.6 g/dL (12.0-15.5) Hematocrit 26.0 % (36.0-47.0) 24.5 % (36.0-47.0) Mean Corpuscular Volume 75 fL (79-100) 74 fL (79-100) Mean Corpuscular Hemoglobin 23 pg (25-35) 23 pg (25-35) Mean Corpuscular Hemoglobin Concent 31 g/dL (31-37) 31 g/dL (31-37) Red Cell Distribution Width 18.9 % (11.5-14.5) 18.7 % (11.5-14.5) Platelet Count 510 x10^3/uL (140-400) 387 x10^3/uL (140-400) Neutrophils (%) (Auto) 88 % (31-73) Lymphocytes (%) (Auto) 6 % (24-48) Monocytes (%) (Auto) 6 % (0-9) Eosinophils (%) (Auto) 0 % (0-3) Basophils (%) (Auto) 0 % (0-3) Neutrophils # (Auto) 13.5 x10^3/uL (1.8-7.7) Lymphocytes # (Auto) 1.0 x10^3/uL (1.0-4.8) Monocytes # (Auto) 0.8 x10^3/uL (0.0-1.1) Eosinophils # (Auto) 0.0 x10^3/uL (0.0-0.7) Basophils # (Auto) 0.0 x10^3/uL (0.0-0.2) Sodium Level 143 mmol/L (136-145) Potassium Level 5.5 mmol/L (3.5-5.1) Chloride Level 109 mmol/L (98-107) Carbon Dioxide Level 26 mmol/L (21-32) Anion Gap 8 (6-14) Blood Urea Nitrogen 18 mg/dL (7-20) Creatinine 1.0 mg/dL (0.6-1.0) Estimated GFR (Cockcroft-Gault) 55.0 Glucose Level 133 mg/dL (70-99) Calcium Level 8.0 mg/dL (8.5-10.1) Phosphorus Level 5.6 mg/dL (2.6-4.7) Magnesium Level 1.6 mg/dL (1.8-2.4) Comment Review of Relevant I have reviewed the following items qasim (where applicable) has been applied. Medications: Current Medications Medications (Trade) Dose Ordered Sig/Gael Route PRN Reason Start Time Stop Time Status Last Admin Dose Admin Insulin Human Lispro (HumaLOG VIAL for OP,RR ONLY) 0-10 units PRN Q1HR PRN SQ PER PROTOCOL 09/22/21 11:30 09/22/21 20:19 DC 09/22/21 18:50 Bupivacaine HCl/ Epinephrine Bitart (Sensorcain-Epi 0.5% Kit) 30 ml STK-MED ONCE .ROUTE 09/22/21 12:56 09/22/21 12:57 DC 09/22/21 13:24 Cellulose (Surgicel Hemostat 4x8) 1 each STK-MED ONCE .ROUTE 09/22/21 15:38 09/22/21 15:38 DC 09/22/21 15:43 Albuterol/ Ipratropium (Duoneb) 3 ml 1X ONCE NEB 09/22/21 17:30 09/22/21 17:31 DC 09/22/21 17:35 Ringer's Solution 1,000 ml @ 100 mls/hr Q10H IV 09/22/21 17:45 09/23/21 08:26 Sodium Chloride 1,000 ml @ 25 mls/hr Q24H IV 09/22/21 17:45 09/22/21 17:45 Hydromorphone HCl 30 ml @ 0 mls/hr CONT PRN PRN IV PER PROTOCOL 09/22/21 17:45 09/22/21 18:02 Ketorolac Tromethamine (Toradol 15mg Vial) 15 mg 1X ONCE IVP 09/22/21 18:45 09/22/21 18:46 DC 09/22/21 18:45 Justifications for Admission Other Justification Perforated diverticulitis VERONICA TURK MD Sep 23, 2021 09:24
[2021-09-23] MEDS ORDERED: NOREPINEPHRINE VIAL 8 MG in IV DEXTROSE 5% 250 ML IV PRN (09:30)
[2021-09-23 09:31] LABS: % BANDS 7 % (0-9); % LYMPHS 9 % (24-48); % MONOS 10 % (0-10); % SEGS 74 % (35-66); PLT ESTIMATE ADEQUATE (ADEQUATE)
[2021-09-23 09:32] LABS: ANISOCYTOSIS PRESENT; HYPOCHROMIA MOD; MICROCYTOSIS MOD; OVALOCYTES PRESENT
--- NOTE | 2021-09-23 09:46 | PDOC ---
[employer] PROGRESS NOTE Date of Service: DATE: 09/23/21 TIME: 09:45 Subjective: Feels ok Objective: Vital Signs: Vital Signs Date Time Temp Pulse Resp B/P (MAP) Pulse Ox O2 Delivery O2 Flow Rate FiO2 09/22/21 07:09 55 114/60 09/22/21 07:56 96 Room Air 09/22/21 11:33 97.6 18 97.6 09/22/21 17:02 10 Vital Signs Date Time Temp Pulse Resp B/P (MAP) Pulse Ox O2 Delivery O2 Flow Rate FiO2 09/23/21 08:53 91 Room Air 09/23/21 08:00 98.3 69 17 90/51 (64) 4.0 98.3 Labs: Laboratory Tests Test 09/22/21 11:57 09/22/21 17:15 09/22/21 18:15 09/22/21 18:45 Glucose (Fingerstick) 83 mg/dL (70-99) 186 mg/dL (70-99) H 187 mg/dL (70-99) H O2 Saturation 92 % (92-99) Arterial Blood pH 7.34 (7.35-7.45) L Arterial Blood pCO2 at Patient Temp 46 mmHg (35-46) Arterial Blood pO2 at Patient Temp 72 mmHg (65-108) Arterial Blood HCO3 24 mmol/L (21-28) Arterial Blood Base Excess -2 mmol/L (-3-3) FiO2 100% nrb Test 09/22/21 18:56 09/23/21 05:10 White Blood Count 24.3 x10^3/uL (4.0-11.0) H 15.4 x10^3/uL (4.0-11.0) H Red Blood Count 3.49 x10^6/uL (3.50-5.40) L 3.31 x10^6/uL (3.50-5.40) L Hemoglobin 8.1 g/dL (12.0-15.5) L 7.6 g/dL (12.0-15.5) L Hematocrit 26.0 % (36.0-47.0) L 24.5 % (36.0-47.0) L Mean Corpuscular Volume 75 fL (79-100) L 74 fL (79-100) L Mean Corpuscular Hemoglobin 23 pg (25-35) L 23 pg (25-35) L Mean Corpuscular Hemoglobin Concent 31 g/dL (31-37) 31 g/dL (31-37) Red Cell Distribution Width 18.9 % (11.5-14.5) H 18.7 % (11.5-14.5) H Platelet Count 510 x10^3/uL (140-400) H 387 x10^3/uL (140-400) Neutrophils (%) (Auto) 88 % (31-73) H Lymphocytes (%) (Auto) 6 % (24-48) L Monocytes (%) (Auto) 6 % (0-9) Eosinophils (%) (Auto) 0 % (0-3) Basophils (%) (Auto) 0 % (0-3) Neutrophils # (Auto) 13.5 x10^3/uL (1.8-7.7) H Lymphocytes # (Auto) 1.0 x10^3/uL (1.0-4.8) Monocytes # (Auto) 0.8 x10^3/uL (0.0-1.1) Eosinophils # (Auto) 0.0 x10^3/uL (0.0-0.7) Basophils # (Auto) 0.0 x10^3/uL (0.0-0.2) Segmented Neutrophils % 74 % (35-66) H Band Neutrophils % 7 % (0-9) Lymphocytes % 9 % (24-48) L Monocytes % 10 % (0-10) Platelet Estimate Adequate (ADEQUATE) Large Platelets Few Hypochromasia Mod Anisocytosis Present Microcytosis Mod Ovalocytes Present Sodium Level 143 mmol/L (136-145) Potassium Level 5.5 mmol/L (3.5-5.1) H Chloride Level 109 mmol/L (98-107) H Carbon Dioxide Level 26 mmol/L (21-32) Anion Gap 8 (6-14) Blood Urea Nitrogen 18 mg/dL (7-20) Creatinine 1.0 mg/dL (0.6-1.0) Estimated GFR (Cockcroft-Gault) 55.0 Glucose Level 133 mg/dL (70-99) H Calcium Level 8.0 mg/dL (8.5-10.1) L Phosphorus Level 5.6 mg/dL (2.6-4.7) H Magnesium Level 1.6 mg/dL (1.8-2.4) L Laboratory Tests 09/22/21 18:56 09/23/21 05:10 Laboratory Tests 09/23/21 05:10 Laboratory Tests 09/23/21 05:10 Physical Exam: GENERAL: No apparent distress. Alert and oriented. HEENT: Head normocephalic, atraumatic. NECK: Supple LUNGS: Clear to auscultation. HEART: RRR, S1, S2 present, pulses intact ABDOMEN: Soft, positive bowel sounds. EXTREMITIES: No cyanosis or edema. NEUROLOGIC: Normal speech, normal tone PSYCHIATRIC: Normal affect, normal mood. SKIN: No ulceration. 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 Recent hospitalization for microperforation. 4.) H/o KAN/BSO sounds like for benign 5.) H/o ERT 6.) HTN per primary team 7.) Tob use 8.) Anemia - Hgb stable at 7.6 9.) Will cont to follow MAXIMO MELGAR MD Sep 23, 2021 09:46
[2021-09-23] MEDS: TPN PER PHARMACY MC PRN (09:54)
--- NOTE | 2021-09-23 09:59 | NUR ---
Pharmacy TPN Dosing Note S: SUZAN CATES is a 70 year old F Currently receiving Central Continuous TPN started 09/19/21 B:Pertinent PMH: rectovaginal fistula, NPO Height: 5 feet, 5 inches Weight: 58.1 kg Current diet: NPO LABS: Sodium: 143 Potassium: 5.5 Chloride: 109 Calcium: 8.0 Corrected Calcium: 10.00 Magnesium: 1.6 CO2: 26 SCr: 1.0 Glucose: 83-187 Albumin: 1.5 AST: 9 ALT: 7 TPN FORMULA: TPN TYPE: Central Continuous AMINO ACIDS: 65 gm DEXTROSE: 230 gm LIPIDS: (MWF) gm SODIUM CHLORIDE: - mEq SODIUM ACETATE: mEq SODIUM PHOSPHATE: mmol POTASSIUM CHLORIDE: 20 mEq POTASSIUM ACETATE: 20 mEq POTASSIUM PHOSPHATE: 15 mmol MAGNESIUM: 10 mEq CALCIUM: mEq INSULIN: units MULTIPLE VITAMIN: 10 ml TRACE ELEMENTS: 1 ml(s) TPN PLAN: Lipids (30 GM) off per MWF schedule Sodium improved, continue no sodium in TPN K, phos elevated. Remove potassium and phosphate TPN not hung last night Labs in the am. R: Continue TPN as ordered Will monitor electrolytes, glucose, and tolerance to TPN. PAT BALDWIN, [facility], 09/23/21 1000
--- NOTE | 2021-09-23 10:07 | PDOC ---
Date of Service: DATE: 09/23/21 TIME: 10:02 Subjective: Subjective: Has some pain and nausea. Objective: Vital Signs: Vital Signs Date Time Temp Pulse Resp B/P (MAP) Pulse Ox O2 Delivery O2 Flow Rate FiO2 09/23/21 08:53 91 Room Air 09/23/21 08:00 98.3 69 17 90/51 (64) 4.0 98.3 Labs: Laboratory Tests Test 09/22/21 11:57 09/22/21 17:15 09/22/21 18:45 Glucose (Fingerstick) 83 mg/dL (70-99) 186 mg/dL (70-99) 187 mg/dL (70-99) Imaging: KUB 09/22 Impression: 1. Gastric tube with proximal side-port in the region of the distal esophagus. Recommend advancement 5 to 10 cm to ensure entirely intragastric. 2. Nonspecific gaseous distention of the transverse colon and postoperative free air in the left abdomen. Pre-Op Diagnosis: [place] vaginal fistula, perforated diverticulitis Post-Op Diagnosis: same, coloenteral fistula Procedure Performed: laparoscopic converted to open exploration, extensive lysis of adhesions, hartma n's procedure, small bowel resection Findings: extensive, chronic adhesions in deep pelvis, extensively abnormal sigmoid colon with suspected vaginal fistula on left side, coloenteral fistula, no obvious bladder fistula, normal liver PE: GEN: NAD LUNGS: clear, NC 4L HEART: RRR ABD: NG dark output, dressing dry, ostomy bag flat NEURO/PSYCH: A & O 3 A/P: Perf diverticulitis, colovaginal and coloenteral fistulas s/p resection/ostomy DEWAYNE, hypotension -- Continue per surgery. Change to IV PPI. Justicifation of Admission Dx: Justifications for Admission: Justification of Admission Dx: Yes Sepsis: Infection ALEXSANDER TAFOYA Sep 23, 2021 10:07
--- NOTE | 2021-09-23 11:06 | NUR ---
SS following up with discharge planning. SS reviewed pt chart and discussed with pt RN. Pt is from home and is currently requiring oxygen at two liters nasal canula. COVID19 negative. Pt on IV Zosyn. 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 TPN to start tonight. Pt had surgery yesterday. Not ready. SS will continue to follow for discharge planning.
[2021-09-23] MEDS: PANTOPRAZOLE IV PUSH 40 MG VIAL. IVP SCH (11:12)
--- NOTE | 2021-09-23 14:47 | NUR ---
Heparin SQ 1400h dose held as per Kasey Fernandez APRN. Asked her this morning during rounds and was told may start resuming heparin SQ dose by 2200h tonight.
--- NOTE | 2021-09-23 17:15 | NUR ---
200ml drained via colostomy bag, noted liquid brownish stool. 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 Handed over to 4N staff on duty for continuity of care.
[2021-09-23] MEDS: IV NORMAL SALINE 1000ML BAG 1,000 ML IV SCH (17:45)
[2021-09-23] MEDS: ATORVASTATIN CALCIUM 20 MG TABLET PO SCH (21:00)
[2021-09-23] MEDS ORDERED: [UNRECOGNIZED DRUG - OTHER] IV SCH (22:00)
[2021-09-23] MEDS ORDERED: DEXTROSE 70% IV SCH (22:00)
[2021-09-23] MEDS ORDERED: TOTAL PARENTERAL NUTRITION IV SCH (22:00)
[2021-09-23] MEDS ORDERED: AMINO ACID IV SCH (22:00)
[2021-09-24] MEDS: PIPERACILLIN/TAZOBACTAM 3.375 GM in IV NORMAL SALINE 50ML 50 ML IV SCH ×4 (00:15→17:42)
[2021-09-24 03:31] VITALS: BP 119/53
[2021-09-24] MEDS: INSULIN LISPRO 300 UNITS/3 ML VIAL. SQ SCH ×4 (06:00→17:55)
[2021-09-24] MEDS: HEPARIN for SUB-Q USE 5,000 UNIT/ML VIAL. SQ SCH ×3 (06:02→22:00)
[2021-09-24 07:42] VITALS: BP 105/67
[2021-09-24 07:50] LABS: CALCIUM 8.4 mg/dL (8.5-10.1); CREATININE 0.9 mg/dL (0.6-1.0); GFR 62.1; PHOSPHORUS 2.2 mg/dL (2.6-4.7); POTASSIUM 4.3 mmol/L (3.5-5.1)
[2021-09-24] MEDS ORDERED: ALBUTEROL SULFATE 2.5 MG/3 ML NEBU. NEB SCH (08:00)
[2021-09-24] MEDS: ASPIRIN CHEWABLE 81 MG TABLET. PO SCH (08:28)
[2021-09-24] MEDS: LISINOPRIL 20 MG TABLET PO SCH (08:28)
[2021-09-24] MEDS: INSULIN GLARGINE SYRINGE. SQ SCH (08:28)
[2021-09-24] MEDS: hydrALAZINE 25 MG TABLET PO SCH (08:28)
[2021-09-24] MEDS: hydroCHLOROthiazide 12.5 MG CAPSULE PO SCH (08:28)
[2021-09-24] MEDS: IV RINGERS,LACTATED 1000ML 1,000 ML IV SCH (08:28)
[2021-09-24] MEDS: PANTOPRAZOLE IV PUSH 40 MG VIAL. IVP SCH (08:29)
[2021-09-24] MEDS ORDERED: MAGNESIUM SULFATE 2GM 50 ML IV ONE (09:00)
[2021-09-24] MEDS ORDERED: HYDROmorphone 2 MG/ML INJ. IVP PRN (09:30)
--- NOTE | 2021-09-24 09:31 | PDOC ---
SURGICAL PROGRESS NOTE DATE: 09/24/21 TIME: 09:29 Subjective Pt with c/o pain, no N/V Vital Signs Vital Signs Date Time Temp Pulse Resp B/P (MAP) Pulse Ox O2 Delivery O2 Flow Rate FiO2 09/24/21 07:42 98.6 75 18 105/67 (80) 95 Nasal Cannula 2.0 98.6 I&O Intake and Output 09/24/21 07:00 Intake Total 1441.75 ml Output Total 1925 ml Balance -483.25 ml Intake Oral 0 ml IV Total 1441.75 ml Output Urine Total 1525 ml Stool Total 200 ml Gastric Drainage Total 200 ml PATIENT HAS A HERNANDEZ: Yes (maintain hernandez, given extensive pelvic inflammation) General: Alert, Cooperative, moderate distress, Other (NGT with clearing bilious drainage) Abdomen: Soft, Other (ostomy fxn) Labs Laboratory Tests Test 09/22/21 11:57 09/22/21 17:15 09/22/21 18:15 09/22/21 18:45 Glucose (Fingerstick) 83 mg/dL (70-99) 186 mg/dL (70-99) 187 mg/dL (70-99) O2 Saturation 92 % (92-99) Arterial Blood pH 7.34 (7.35-7.45) Arterial Blood pCO2 at Patient Temp 46 mmHg (35-46) Arterial Blood pO2 at Patient Temp 72 mmHg (65-108) Arterial Blood HCO3 24 mmol/L (21-28) Arterial Blood Base Excess -2 mmol/L (-3-3) FiO2 100% nrb Test 09/22/21 18:56 09/23/21 05:10 09/23/21 12:10 09/24/21 00:14 White Blood Count 24.3 x10^3/uL (4.0-11.0) 15.4 x10^3/uL (4.0-11.0) Red Blood Count 3.49 x10^6/uL (3.50-5.40) 3.31 x10^6/uL (3.50-5.40) Hemoglobin 8.1 g/dL (12.0-15.5) 7.6 g/dL (12.0-15.5) Hematocrit 26.0 % (36.0-47.0) 24.5 % (36.0-47.0) Mean Corpuscular Volume 75 fL (79-100) 74 fL (79-100) Mean Corpuscular Hemoglobin 23 pg (25-35) 23 pg (25-35) Mean Corpuscular Hemoglobin Concent 31 g/dL (31-37) 31 g/dL (31-37) Red Cell Distribution Width 18.9 % (11.5-14.5) 18.7 % (11.5-14.5) Platelet Count 510 x10^3/uL (140-400) 387 x10^3/uL (140-400) Neutrophils (%) (Auto) 88 % (31-73) Lymphocytes (%) (Auto) 6 % (24-48) Monocytes (%) (Auto) 6 % (0-9) Eosinophils (%) (Auto) 0 % (0-3) Basophils (%) (Auto) 0 % (0-3) Neutrophils # (Auto) 13.5 x10^3/uL (1.8-7.7) Lymphocytes # (Auto) 1.0 x10^3/uL (1.0-4.8) Monocytes # (Auto) 0.8 x10^3/uL (0.0-1.1) Eosinophils # (Auto) 0.0 x10^3/uL (0.0-0.7) Basophils # (Auto) 0.0 x10^3/uL (0.0-0.2) Segmented Neutrophils % 74 % (35-66) Band Neutrophils % 7 % (0-9) Lymphocytes % 9 % (24-48) Monocytes % 10 % (0-10) Platelet Estimate Adequate (ADEQUATE) Large Platelets Few Hypochromasia Mod Anisocytosis Present Microcytosis Mod Ovalocytes Present Sodium Level 143 mmol/L (136-145) Potassium Level 5.5 mmol/L (3.5-5.1) Chloride Level 109 mmol/L (98-107) Carbon Dioxide Level 26 mmol/L (21-32) Anion Gap 8 (6-14) Blood Urea Nitrogen 18 mg/dL (7-20) Creatinine 1.0 mg/dL (0.6-1.0) Estimated GFR (Cockcroft-Gault) 55.0 Glucose Level 133 mg/dL (70-99) Calcium Level 8.0 mg/dL (8.5-10.1) Phosphorus Level 5.6 mg/dL (2.6-4.7) Magnesium Level 1.6 mg/dL (1.8-2.4) Glucose (Fingerstick) 95 mg/dL (70-99) 121 mg/dL (70-99) Test 09/24/21 06:26 09/24/21 06:35 Glucose (Fingerstick) 116 mg/dL (70-99) Sodium Level 142 mmol/L (136-145) Potassium Level 4.3 mmol/L (3.5-5.1) Chloride Level 104 mmol/L (98-107) Carbon Dioxide Level 31 mmol/L (21-32) Anion Gap 7 (6-14) Blood Urea Nitrogen 18 mg/dL (7-20) Creatinine 0.9 mg/dL (0.6-1.0) Estimated GFR (Cockcroft-Gault) 62.1 Glucose Level 103 mg/dL (70-99) Calcium Level 8.4 mg/dL (8.5-10.1) Phosphorus Level 2.2 mg/dL (2.6-4.7) Magnesium Level 2.0 mg/dL (1.8-2.4) Laboratory Tests Test 09/23/21 12:10 09/24/21 00:14 09/24/21 06:26 09/24/21 06:35 Glucose (Fingerstick) 95 mg/dL (70-99) 121 mg/dL (70-99) 116 mg/dL (70-99) Sodium Level 142 mmol/L (136-145) Potassium Level 4.3 mmol/L (3.5-5.1) Chloride Level 104 mmol/L (98-107) Carbon Dioxide Level 31 mmol/L (21-32) Anion Gap 7 (6-14) Blood Urea Nitrogen 18 mg/dL (7-20) Creatinine 0.9 mg/dL (0.6-1.0) Estimated GFR (Cockcroft-Gault) 62.1 Glucose Level 103 mg/dL (70-99) Calcium Level 8.4 mg/dL (8.5-10.1) Phosphorus Level 2.2 mg/dL (2.6-4.7) Magnesium Level 2.0 mg/dL (1.8-2.4) Assessment/Plan s/p toth's cont NGT add additional pain meds cont hernandez await bowel fxn Justicifation of Admission Dx: Justifications for Admission: Justification of Admission Dx: Yes Sepsis: Infection ARLETTE WAY MD Sep 24, 2021 09:31
[2021-09-24 11:02] VITALS: BP 110/71
--- NOTE | 2021-09-24 12:28 | PDOC ---
Date of Service: DATE: 09/24/21 TIME: 12:26 Objective: Objective: D/w nurse - some pain, ostomy functioning. Vital Signs: Vital Signs Date Time Temp Pulse Resp B/P (MAP) Pulse Ox O2 Delivery O2 Flow Rate FiO2 09/24/21 11:02 97.9 71 18 110/71 (84) 96 Nasal Cannula 2.0 97.9 Labs: Laboratory Tests Test 09/24/21 00:14 09/24/21 06:26 09/24/21 12:03 Glucose (Fingerstick) 121 mg/dL (70-99) 116 mg/dL (70-99) 129 mg/dL (70-99) PE: GEN: NAD ABD: NG canister w/ bilious fluid, abd non-distended NEURO/PSYCH: sleeping, not awakened A/P: S/p resection/ostomy (perf diverticulitis, fistulas) DEWAYNE -- Ostomy functioning, NG less/bilious. Continue per surgery. Justicifation of Admission Dx: Justifications for Admission: Justification of Admission Dx: Yes Sepsis: Infection ALEXSANDER TAFOYA Sep 24, 2021 12:28
--- NOTE | 2021-09-24 12:30 | NUR ---
SW following. 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 Pt not medically stable for discharge. SW will continue to follow.
[2021-09-24] MEDS: TPN PER PHARMACY MC PRN (13:10)
--- NOTE | 2021-09-24 13:15 | NUR ---
Pharmacy TPN Dosing Note S: LOANSUZAN Box is a 70 year old F Currently receiving Central Continuous TPN started 09/19/21 B:Pertinent PMH: rectovaginal fistula, NPO LABS: Sodium: 142 Potassium: 4.3 Chloride: 104 Calcium: 8.4 Corrected Calcium: 10.40 Magnesium: 2.0 CO2: 31 SCr: 0.9 Glucose: 129 Albumin: 1.5 AST: 9 ALT: 7 TPN FORMULA: TPN TYPE: Central Continuous AMINO ACIDS: 65 gm DEXTROSE: 230 gm LIPIDS: 30 gm SODIUM CHLORIDE: - mEq SODIUM ACETATE: - mEq SODIUM PHOSPHATE: - mmol POTASSIUM CHLORIDE: 20 mEq POTASSIUM ACETATE: 20 mEq POTASSIUM PHOSPHATE: 15 mmol MAGNESIUM: 10 mEq CALCIUM: - mEq INSULIN: - units MULTIPLE VITAMIN: 10 ml TRACE ELEMENTS: 1 ml(s) TPN PLAN: Labs in the am. R: Continue TPN Will monitor electrolytes, glucose, and tolerance to TPN. SHARI ANGULO [facility], 09/24/21 [id number]
--- NOTE | 2021-09-24 13:17 | PDOC ---
[employer] PROGRESS NOTE Date of Service DOS: DATE: 09/24/21 TIME: 13:16 Chief Complaint Chief Complaint Rectovaginal fistula and Acute abdominal pain. 09/22: Status post bilateral ureteral stent placement laparoscopic converted to open lysis of adhesions Esparza's procedure and small bowel resection left quadrant colostomy Microcytic anemia - not DEWAYNE. Will type and screen post-op tobacco use disorder Dm2, insulin Hypokalemia - due to poor po Severe protein calorie malnutrition - l HLD - HTN - General surgery consult, hydrator consult IV abx History of Present Illness History of Present Illness 09/24/21 No acute events overnight. Postoperative day 2. AF and VSS. Saturating 96% on 2 L nasal cannula. Ostomy is functioning well. Pain is well controlled. Patient is resting comfortably in bed. Patient's chart, labs, images were reviewed and discussed with RN 09/23: Transferred to ICU for supportive care postoperatively. K5.5, Hb 7.6, blood pressure low 80/50. Left hip pain, she thinks is positional. Bicarb, albumin, and levophed ordered. 09/22: To OR: Status post bilateral ureteral stent placement laparoscopic converted to open lysis of adhesions Esparza's procedure and small bowel resection left quadrant colostomy 09/21: No acute events overnight. Patient seen examined bedside. Still receiving IV TPN. AF and VSS. Coordination for OR on Monday with urology and gynecology and general surgery for perforated diverticulitis and colovaginal fistula. 09/20: Patient seen and examined at bedside this morning sitting upright in NAD. Patient receiving TPN. Plan for surgery monday, waiting on [place] to see her today 09/19: Gen Surg plans sigmoid colectomy, with temporary ileostomy. Vitals/I&O Vitals/I&O: Vital Signs Date Time Temp Pulse Resp B/P (MAP) Pulse Ox O2 Delivery O2 Flow Rate FiO2 09/24/21 11:02 97.9 71 18 110/71 (84) 96 Nasal Cannula 2.0 97.9 I & O 09/23/21 09/23/21 09/24/21 15:00 23:00 07:00 Intake Total 555 ml 886.75 ml Output Total 300 ml 625 ml 1000 ml Balance 255 ml 261.75 ml -1000 ml Physical Exam General: Alert, Cooperative, moderate distress, Other (NGT with clearing bilious drainage) Heart: Regular rate, Normal S1, Normal S2, No murmurs Lungs: Clear Abdomen: Soft, Other (ostomy fxn) Extremities: No cyanosis, No edema, Normal pulses Skin: No significant lesion Labs Labs: Laboratory Tests Test 09/24/21 00:14 09/24/21 06:26 09/24/21 06:35 09/24/21 12:03 Glucose (Fingerstick) 121 mg/dL (70-99) 116 mg/dL (70-99) 129 mg/dL (70-99) Sodium Level 142 mmol/L (136-145) Potassium Level 4.3 mmol/L (3.5-5.1) Chloride Level 104 mmol/L (98-107) Carbon Dioxide Level 31 mmol/L (21-32) Anion Gap 7 (6-14) Blood Urea Nitrogen 18 mg/dL (7-20) Creatinine 0.9 mg/dL (0.6-1.0) Estimated GFR (Cockcroft-Gault) 62.1 Glucose Level 103 mg/dL (70-99) Calcium Level 8.4 mg/dL (8.5-10.1) Phosphorus Level 2.2 mg/dL (2.6-4.7) Magnesium Level 2.0 mg/dL (1.8-2.4) Comment Review of Relevant I have reviewed the following items qasim (where applicable) has been applied. Medications: Current Medications Medications (Trade) Dose Ordered Sig/Gael Route PRN Reason Start Time Stop Time Status Last Admin Dose Admin Magnesium Sulfate 10 meq/ Multivitamins 10 ml/Zinc/Copper/ Manganese/ Selenium 1 ml/ Total Parenteral Nutrition/Amino Acids/Dextrose/ Fat Emulsion Intravenous 1,800 ml @ 75 mls/hr TPN CONT IV 09/23/21 22:00 09/24/21 21:59 09/23/21 22:20 Justifications for Admission Other Justification Perforated diverticulitis EVIE RITCHIE MD Sep 24, 2021 13:17
[2021-09-24 15:30] VITALS: BP 116/47
[2021-09-24] MEDS: HYDROmorphone 12mg/30ml PCA 30 ML IV PRN (16:39)
[2021-09-24] MEDS: IV NORMAL SALINE 1000ML BAG 1,000 ML IV SCH (17:41)
[2021-09-24 19:57] VITALS: BP 117/32
[2021-09-24] MEDS: ATORVASTATIN CALCIUM 20 MG TABLET PO SCH (21:00)
[2021-09-24] MEDS ORDERED: [UNRECOGNIZED DRUG - OTHER] IV SCH (22:00)
[2021-09-24] MEDS ORDERED: TOTAL PARENTERAL NUTRITION IV SCH (22:00)
[2021-09-24] MEDS ORDERED: AMINO ACID IV SCH (22:00)
[2021-09-24] MEDS ORDERED: DEXTROSE 70% IV SCH (22:00)
[2021-09-25] VITALS (12 sets, daily range): BP systolic 114–162; BP diastolic 37–63
[2021-09-25] MEDS: PIPERACILLIN/TAZOBACTAM 3.375 GM in IV NORMAL SALINE 50ML 50 ML IV SCH ×4 (00:04→18:19)
[2021-09-25] MEDS: INSULIN LISPRO 300 UNITS/3 ML VIAL. SQ SCH ×4 (06:00→18:00)
[2021-09-25] MEDS: HEPARIN for SUB-Q USE 5,000 UNIT/ML VIAL. SQ SCH ×2 (06:07→16:27)
[2021-09-25] MEDS: hydrALAZINE 25 MG TABLET PO SCH (07:49)
[2021-09-25] MEDS: hydroCHLOROthiazide 12.5 MG CAPSULE PO SCH (07:50)
[2021-09-25] MEDS: LISINOPRIL 20 MG TABLET PO SCH (07:50)
[2021-09-25] MEDS: ASPIRIN CHEWABLE 81 MG TABLET. PO SCH (07:50)
[2021-09-25] MEDS: PANTOPRAZOLE IV PUSH 40 MG VIAL. IVP SCH (08:13)
--- NOTE | 2021-09-25 08:15 | PDOC ---
SURGICAL PROGRESS NOTE DATE: 09/25/21 TIME: 08:14 Subjective trouble breathing with tubes in nose denies nausea thirsty Vital Signs Vital Signs Date Time Temp Pulse Resp B/P (MAP) Pulse Ox O2 Delivery O2 Flow Rate FiO2 09/25/21 07:42 98.0 71 16 148/58 (88) 94 Nasal Cannula 2.0 98.0 I&O Intake and Output 09/25/21 06:59 Intake Total 1230 ml Output Total 2325 ml Balance -1095 ml Intake Oral 0 ml IV Total 1230 ml Output Urine Total 1850 ml Stool Total 175 ml Drainage Total 300 ml General: Alert, Oriented X3, Cooperative HEENT: Other (ng in place) Abdomen: Soft, Other (dressing dry, ostomy with small amount of stool) Labs Laboratory Tests Test 09/23/21 12:10 09/24/21 00:14 09/24/21 06:26 09/24/21 06:35 Glucose (Fingerstick) 95 mg/dL (70-99) 121 mg/dL (70-99) 116 mg/dL (70-99) Sodium Level 142 mmol/L (136-145) Potassium Level 4.3 mmol/L (3.5-5.1) Chloride Level 104 mmol/L (98-107) Carbon Dioxide Level 31 mmol/L (21-32) Anion Gap 7 (6-14) Blood Urea Nitrogen 18 mg/dL (7-20) Creatinine 0.9 mg/dL (0.6-1.0) Estimated GFR (Cockcroft-Gault) 62.1 Glucose Level 103 mg/dL (70-99) Calcium Level 8.4 mg/dL (8.5-10.1) Phosphorus Level 2.2 mg/dL (2.6-4.7) Magnesium Level 2.0 mg/dL (1.8-2.4) Test 09/24/21 12:03 09/24/21 17:48 09/25/21 00:06 09/25/21 05:56 Glucose (Fingerstick) 129 mg/dL (70-99) 124 mg/dL (70-99) 122 mg/dL (70-99) 135 mg/dL (70-99) Laboratory Tests Test 09/24/21 12:03 09/24/21 17:48 09/25/21 00:06 09/25/21 05:56 Glucose (Fingerstick) 129 mg/dL (70-99) 124 mg/dL (70-99) 122 mg/dL (70-99) 135 mg/dL (70-99) Assessment/Plan s/p resection will clamp ng ambulate Justicifation of Admission Dx: Justifications for Admission: Justification of Admission Dx: Yes Sepsis: Infection FARIBA SMALL BRAKE DRUM MOLDER Sep 25, 2021 08:15
[2021-09-25 08:38] LABS: CREATININE 0.7 mg/dL (0.6-1.0); PHOSPHORUS 1.7 mg/dL (2.6-4.7); POTASSIUM 3.5 mmol/L (3.5-5.1)
[2021-09-25] MEDS: INSULIN GLARGINE SYRINGE. SQ SCH (09:00)
[2021-09-25 09:40] LABS: BASO % 0 % (0-3); EOS # 0.2 x10^3/uL (0.0-0.7); EOS % 2 % (0-3); HEMATOCRIT 17.7 % (36.0-47.0); LYMPH # 0.9 x10^3/uL (1.0-4.8); LYMPH % 9 % (24-48); MEAN CORPUSCULAR HEMOGLOBIN 23 pg (25-35); MEAN CORPUSCULAR HGB CONC 32 g/dL (31-37); MEAN CORPUSCULAR VOLUME 71 fL (79-100); MONO # 0.6 x10^3/uL (0.0-1.1); MONO % 7 % (0-9); NEUT # 7.8 x10^3/uL (1.8-7.7); NEUT % 82 % (31-73); PLATELET COUNT 347 x10^3/uL (140-400); RED BLOOD COUNT 2.49 x10^6/uL (3.50-5.40); RED CELL DISTRIBUTION WIDTH 18.1 % (11.5-14.5); WHITE BLOOD COUNT 9.5 x10^3/uL (4.0-11.0)
[2021-09-25 09:48] LABS: HEMOGLOBIN 5.7 g/dL (12.0-15.5)
[2021-09-25] MEDS ORDERED: SODIUM PHOSPHATE 20 MMOL in IV NORMAL SALINE 250ML 250 ML IV ONE (10:30)
--- NOTE | 2021-09-25 13:02 | PDOC ---
[employer] PROGRESS NOTE Date of Service DOS: DATE: 09/25/21 TIME: 13:02 Chief Complaint Chief Complaint Anemia secondary to acute postoperative blood loss Rectovaginal fistula and Acute abdominal pain. 09/22: Status post bilateral ureteral stent placement laparoscopic converted to open lysis of adhesions Esparza's procedure and small bowel resection left quadrant colostomy Microcytic anemia - not DEWAYNE. 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 Patient seen examined bedside. Resting comfortably. Postop day 3. Hemoglobin of 5.7. Pending 1 unit PRBC transfusion. Pending chest x-ray. Patient's chart, labs, images were reviewed and discussed with RN 09/24/21 No acute events overnight. Postoperative day 2. AF and VSS. Saturating 96% on 2 L nasal cannula. Ostomy is functioning well. Pain is well controlled. Patient is resting comfortably in bed. Patient's chart, labs, images were reviewed and discussed with RN 09/23: Transferred to ICU for supportive care postoperatively. K5.5, Hb 7.6, blood pressure low 80/50. Left hip pain, she thinks is positional. Bicarb, albumin, and levophed ordered. 09/22: To OR: Status post bilateral ureteral stent placement laparoscopic converted to open lysis of adhesions Esparza's procedure and small bowel resection left quadrant colostomy 09/21: No acute events overnight. Patient seen examined bedside. Still receiving IV TPN. AF and VSS. Coordination for OR on Monday with urology and gynecology and general surgery for perforated diverticulitis and colovaginal fistula. 09/20: Patient seen and examined at bedside this morning sitting upright in NAD. Patient receiving TPN. Plan for surgery monday, waiting on [place] to see her today 09/19: Gen Surg plans sigmoid colectomy, with temporary ileostomy. Vitals/I&O Vitals/I&O: Vital Signs Date Time Temp Pulse Resp B/P (MAP) Pulse Ox O2 Delivery O2 Flow Rate FiO2 09/25/21 12:00 98.0 67 16 138/56 (83) 94 Nasal Cannula 2.0 98.0 I & O 09/24/21 09/24/21 09/25/21 15:00 23:00 07:00 Intake Total 100 ml 1030 ml Output Total 1625 ml 700 ml Balance 100 ml -595 ml -700 ml Physical Exam General: Alert, Oriented X3, Cooperative Heart: Regular rate, Normal S1, Normal S2, No murmurs Lungs: Clear Abdomen: Soft, Other (dressing dry, ostomy with small amount of stool) Extremities: No cyanosis, No edema, Normal pulses Skin: No significant lesion Labs Labs: Laboratory Tests Test 09/24/21 17:48 09/25/21 00:06 09/25/21 05:56 09/25/21 07:40 Glucose (Fingerstick) 124 mg/dL (70-99) 122 mg/dL (70-99) 135 mg/dL (70-99) White Blood Count 9.5 x10^3/uL (4.0-11.0) Red Blood Count 2.49 x10^6/uL (3.50-5.40) Hemoglobin 5.7 g/dL (12.0-15.5) Hematocrit 17.7 % (36.0-47.0) Mean Corpuscular Volume 71 fL (79-100) Mean Corpuscular Hemoglobin 23 pg (25-35) Mean Corpuscular Hemoglobin Concent 32 g/dL (31-37) Red Cell Distribution Width 18.1 % (11.5-14.5) Platelet Count 347 x10^3/uL (140-400) Neutrophils (%) (Auto) 82 % (31-73) Lymphocytes (%) (Auto) 9 % (24-48) Monocytes (%) (Auto) 7 % (0-9) Eosinophils (%) (Auto) 2 % (0-3) Basophils (%) (Auto) 0 % (0-3) Neutrophils # (Auto) 7.8 x10^3/uL (1.8-7.7) Lymphocytes # (Auto) 0.9 x10^3/uL (1.0-4.8) Monocytes # (Auto) 0.6 x10^3/uL (0.0-1.1) Eosinophils # (Auto) 0.2 x10^3/uL (0.0-0.7) Basophils # (Auto) 0.0 x10^3/uL (0.0-0.2) Sodium Level 139 mmol/L (136-145) Potassium Level 3.5 mmol/L (3.5-5.1) Chloride Level 103 mmol/L (98-107) Carbon Dioxide Level 26 mmol/L (21-32) Anion Gap 10 (6-14) Blood Urea Nitrogen 15 mg/dL (7-20) Creatinine 0.7 mg/dL (0.6-1.0) Estimated GFR (Cockcroft-Gault) 83.0 Glucose Level 139 mg/dL (70-99) Calcium Level 8.0 mg/dL (8.5-10.1) Phosphorus Level 1.7 mg/dL (2.6-4.7) Magnesium Level 2.0 mg/dL (1.8-2.4) Test 09/25/21 11:48 Glucose (Fingerstick) 142 mg/dL (70-99) Comment Review of Relevant I have reviewed the following items qasim (where applicable) has been applied. Medications: Current Medications Medications (Trade) Dose Ordered Sig/Gael Route PRN Reason Start Time Stop Time Status Last Admin Dose Admin Magnesium Sulfate 10 meq/ Multivitamins 10 ml/Zinc/Copper/ Manganese/ Selenium 1 ml/ Total Parenteral Nutrition/Amino Acids/Dextrose/ Fat Emulsion Intravenous 1,800 ml @ 75 mls/hr TPN CONT IV 09/24/21 22:00 09/25/21 21:59 09/24/21 22:00 Sodium Phosphate 20 mmol/Sodium Chloride 256.6667 ml @ 64.167 m... 1X ONCE IV 09/25/21 10:30 09/25/21 14:29 09/25/21 11:13 Justifications for Admission Other Justification Perforated diverticulitis EVIE RITCHIE MD Sep 25, 2021 13:02
--- NOTE | 2021-09-25 13:39 | RAD ---
XR CHEST 1V INDICATION: soa COMPARISON STUDY: 09/18/2021. FINDINGS: Life Support Devices: New enteric tube with tip overlying the body of the stomach. Stable right PICC. Lungs: Normal lung volume. Mild interstitial opacities. Pleura: No pleural effusion or pneumothorax. Heart and Mediastinum: Stable cardiomediastinal silhouette and great vessels. Bones and Soft Tissues: Stable regional skeleton and soft tissues. IMPRESSION: 1. Life-support devices as above. 2. Mild interstitial opacities, which may reflect trace edema. Electronically signed by: Nico Gifford MD (09/25/2021 1:37 PM) [facility]
[2021-09-25] MEDS: TPN PER PHARMACY MC PRN ×2 (15:09→15:15)
--- NOTE | 2021-09-25 16:00 | NUR ---
Paged Dr. Dawson regarding heparin order and hgb of 5.7. He requested we still administer heparin but dc after this dose and start lovenox tomorrow am. Will change orders as requested
[2021-09-25] MEDS: IV NORMAL SALINE 1000ML BAG 1,000 ML IV SCH (18:19)
[2021-09-25] MEDS: ENOXAPARIN 40 MG/0.4 ML SYRINGE. SQ SCH (19:01)
--- NOTE | 2021-09-25 19:01 | NUR ---
Lovenox non admin per Dr. Dawson orders.
[2021-09-25] MEDS: ATORVASTATIN CALCIUM 20 MG TABLET PO SCH (21:00)
[2021-09-25 21:31] LABS: HEMATOCRIT 21.2 % (36.0-47.0)
[2021-09-25 21:43] LABS: HEMOGLOBIN 6.9 g/dL (12.0-15.5)
[2021-09-25] MEDS ORDERED: [UNRECOGNIZED DRUG - OTHER] IV SCH (22:00)
[2021-09-25] MEDS ORDERED: DEXTROSE 70% IV SCH (22:00)
[2021-09-25] MEDS ORDERED: TOTAL PARENTERAL NUTRITION IV SCH (22:00)
[2021-09-25] MEDS ORDERED: AMINO ACID IV SCH (22:00)
--- NOTE | 2021-09-25 22:15 | NUR ---
refused IS ,RN encouraged dep breathing exercises, Refused SCD .
[2021-09-26] MEDS: PIPERACILLIN/TAZOBACTAM 3.375 GM in IV NORMAL SALINE 50ML 50 ML IV SCH ×5 (00:15→23:49)
[2021-09-26 03:00] VITALS: BP 145/56
[2021-09-26] MEDS: HYDROmorphone 12mg/30ml PCA 30 ML IV PRN (04:04)
[2021-09-26 05:40] LABS: BASO % 1 % (0-3); EOS # 0.3 x10^3/uL (0.0-0.7); EOS % 4 % (0-3); HEMOGLOBIN 7.1 g/dL (12.0-15.5); LYMPH # 1.1 x10^3/uL (1.0-4.8); LYMPH % 12 % (24-48); MEAN CORPUSCULAR HEMOGLOBIN 25 pg (25-35); MEAN CORPUSCULAR HGB CONC 34 g/dL (31-37); MEAN CORPUSCULAR VOLUME 74 fL (79-100); MONO # 0.6 x10^3/uL (0.0-1.1); MONO % 7 % (0-9); NEUT # 7.1 x10^3/uL (1.8-7.7); NEUT % 77 % (31-73); PLATELET COUNT 351 x10^3/uL (140-400); RED BLOOD COUNT 2.84 x10^6/uL (3.50-5.40); RED CELL DISTRIBUTION WIDTH 18.4 % (11.5-14.5); WHITE BLOOD COUNT 9.1 x10^3/uL (4.0-11.0)
[2021-09-26 05:55] LABS: CALCIUM 7.4 mg/dL (8.5-10.1); CREATININE 0.6 mg/dL (0.6-1.0); GFR 99.1; MAGNESIUM 1.7 mg/dL (1.8-2.4); PHOSPHORUS 2.7 mg/dL (2.6-4.7); POTASSIUM 3.5 mmol/L (3.5-5.1)
[2021-09-26] MEDS: INSULIN LISPRO 300 UNITS/3 ML VIAL. SQ SCH ×5 (06:00→23:55)
[2021-09-26] MEDS: PANTOPRAZOLE IV PUSH 40 MG VIAL. IVP SCH (06:11)
[2021-09-26 07:00] VITALS: BP 133/37
--- NOTE | 2021-09-26 08:26 | PDOC ---
SURGICAL PROGRESS NOTE DATE: 09/26/21 TIME: 08:25 Subjective resting d/w nurse tolerating ng clamping not out of bed Vital Signs Vital Signs Date Time Temp Pulse Resp B/P (MAP) Pulse Ox O2 Delivery O2 Flow Rate FiO2 09/26/21 08:00 Nasal Cannula 2.0 09/26/21 07:30 95 09/26/21 07:00 98.5 61 18 133/37 (69) 98.5 I&O Intake and Output 09/26/21 07:00 Intake Total 800 ml Output Total 2650 ml Balance -1850 ml Blood Product IV Normal Saline Flush 800 ml Output Urine Total 2650 ml PATIENT HAS A GRIGGS: Yes General: Cooperative, No acute distress HEENT: Other (ng) Abdomen: Soft, Other (ostomy with some stool) Labs Laboratory Tests Test 09/24/21 12:03 09/24/21 17:48 09/25/21 00:06 09/25/21 05:56 Glucose (Fingerstick) 129 mg/dL (70-99) 124 mg/dL (70-99) 122 mg/dL (70-99) 135 mg/dL (70-99) Test 09/25/21 07:40 09/25/21 11:48 09/25/21 18:09 09/25/21 21:25 White Blood Count 9.5 x10^3/uL (4.0-11.0) Red Blood Count 2.49 x10^6/uL (3.50-5.40) Hemoglobin 5.7 g/dL (12.0-15.5) 6.9 g/dL (12.0-15.5) Hematocrit 17.7 % (36.0-47.0) 21.2 % (36.0-47.0) Mean Corpuscular Volume 71 fL (79-100) Mean Corpuscular Hemoglobin 23 pg (25-35) Mean Corpuscular Hemoglobin Concent 32 g/dL (31-37) 32 g/dL (31-37) Red Cell Distribution Width 18.1 % (11.5-14.5) Platelet Count 347 x10^3/uL (140-400) Neutrophils (%) (Auto) 82 % (31-73) Lymphocytes (%) (Auto) 9 % (24-48) Monocytes (%) (Auto) 7 % (0-9) Eosinophils (%) (Auto) 2 % (0-3) Basophils (%) (Auto) 0 % (0-3) Neutrophils # (Auto) 7.8 x10^3/uL (1.8-7.7) Lymphocytes # (Auto) 0.9 x10^3/uL (1.0-4.8) Monocytes # (Auto) 0.6 x10^3/uL (0.0-1.1) Eosinophils # (Auto) 0.2 x10^3/uL (0.0-0.7) Basophils # (Auto) 0.0 x10^3/uL (0.0-0.2) Sodium Level 139 mmol/L (136-145) Potassium Level 3.5 mmol/L (3.5-5.1) Chloride Level 103 mmol/L (98-107) Carbon Dioxide Level 26 mmol/L (21-32) Anion Gap 10 (6-14) Blood Urea Nitrogen 15 mg/dL (7-20) Creatinine 0.7 mg/dL (0.6-1.0) Estimated GFR (Cockcroft-Gault) 83.0 Glucose Level 139 mg/dL (70-99) Calcium Level 8.0 mg/dL (8.5-10.1) Phosphorus Level 1.7 mg/dL (2.6-4.7) Magnesium Level 2.0 mg/dL (1.8-2.4) Glucose (Fingerstick) 142 mg/dL (70-99) 113 mg/dL (70-99) Test 09/26/21 00:12 09/26/21 05:25 09/26/21 06:51 Glucose (Fingerstick) 127 mg/dL (70-99) 136 mg/dL (70-99) White Blood Count 9.1 x10^3/uL (4.0-11.0) Red Blood Count 2.84 x10^6/uL (3.50-5.40) Hemoglobin 7.1 g/dL (12.0-15.5) Hematocrit 21.0 % (36.0-47.0) Mean Corpuscular Volume 74 fL (79-100) Mean Corpuscular Hemoglobin 25 pg (25-35) Mean Corpuscular Hemoglobin Concent 34 g/dL (31-37) Red Cell Distribution Width 18.4 % (11.5-14.5) Platelet Count 351 x10^3/uL (140-400) Neutrophils (%) (Auto) 77 % (31-73) Lymphocytes (%) (Auto) 12 % (24-48) Monocytes (%) (Auto) 7 % (0-9) Eosinophils (%) (Auto) 4 % (0-3) Basophils (%) (Auto) 1 % (0-3) Neutrophils # (Auto) 7.1 x10^3/uL (1.8-7.7) Lymphocytes # (Auto) 1.1 x10^3/uL (1.0-4.8) Monocytes # (Auto) 0.6 x10^3/uL (0.0-1.1) Eosinophils # (Auto) 0.3 x10^3/uL (0.0-0.7) Basophils # (Auto) 0.0 x10^3/uL (0.0-0.2) Sodium Level 141 mmol/L (136-145) Potassium Level 3.5 mmol/L (3.5-5.1) Chloride Level 106 mmol/L (98-107) Carbon Dioxide Level 29 mmol/L (21-32) Anion Gap 6 (6-14) Blood Urea Nitrogen 13 mg/dL (7-20) Creatinine 0.6 mg/dL (0.6-1.0) Estimated GFR (Cockcroft-Gault) 99.1 Glucose Level 142 mg/dL (70-99) Calcium Level 7.4 mg/dL (8.5-10.1) Phosphorus Level 2.7 mg/dL (2.6-4.7) Magnesium Level 1.7 mg/dL (1.8-2.4) Laboratory Tests Test 09/25/21 11:48 09/25/21 18:09 09/25/21 21:25 09/26/21 00:12 Glucose (Fingerstick) 142 mg/dL (70-99) 113 mg/dL (70-99) 127 mg/dL (70-99) Hemoglobin 6.9 g/dL (12.0-15.5) Hematocrit 21.2 % (36.0-47.0) Mean Corpuscular Hemoglobin Concent 32 g/dL (31-37) Test 09/26/21 05:25 09/26/21 06:51 White Blood Count 9.1 x10^3/uL (4.0-11.0) Red Blood Count 2.84 x10^6/uL (3.50-5.40) Hemoglobin 7.1 g/dL (12.0-15.5) Hematocrit 21.0 % (36.0-47.0) Mean Corpuscular Volume 74 fL (79-100) Mean Corpuscular Hemoglobin 25 pg (25-35) Mean Corpuscular Hemoglobin Concent 34 g/dL (31-37) Red Cell Distribution Width 18.4 % (11.5-14.5) Platelet Count 351 x10^3/uL (140-400) Neutrophils (%) (Auto) 77 % (31-73) Lymphocytes (%) (Auto) 12 % (24-48) Monocytes (%) (Auto) 7 % (0-9) Eosinophils (%) (Auto) 4 % (0-3) Basophils (%) (Auto) 1 % (0-3) Neutrophils # (Auto) 7.1 x10^3/uL (1.8-7.7) Lymphocytes # (Auto) 1.1 x10^3/uL (1.0-4.8) Monocytes # (Auto) 0.6 x10^3/uL (0.0-1.1) Eosinophils # (Auto) 0.3 x10^3/uL (0.0-0.7) Basophils # (Auto) 0.0 x10^3/uL (0.0-0.2) Sodium Level 141 mmol/L (136-145) Potassium Level 3.5 mmol/L (3.5-5.1) Chloride Level 106 mmol/L (98-107) Carbon Dioxide Level 29 mmol/L (21-32) Anion Gap 6 (6-14) Blood Urea Nitrogen 13 mg/dL (7-20) Creatinine 0.6 mg/dL (0.6-1.0) Estimated GFR (Cockcroft-Gault) 99.1 Glucose Level 142 mg/dL (70-99) Calcium Level 7.4 mg/dL (8.5-10.1) Phosphorus Level 2.7 mg/dL (2.6-4.7) Magnesium Level 1.7 mg/dL (1.8-2.4) Glucose (Fingerstick) 136 mg/dL (70-99) Assessment/Plan dc ng increase activity Justicifation of Admission Dx: Justifications for Admission: Justification of Admission Dx: Yes Sepsis: Infection FARIBA SMALL JTAC Sep 26, 2021 08:26
[2021-09-26] MEDS ORDERED: MAGNESIUM SULFATE 2GM 50 ML IV ONE (08:30)
[2021-09-26] MEDS: LISINOPRIL 20 MG TABLET PO SCH (09:00)
[2021-09-26] MEDS: hydroCHLOROthiazide 12.5 MG CAPSULE PO SCH (09:00)
[2021-09-26] MEDS: hydrALAZINE 25 MG TABLET PO SCH (09:00)
[2021-09-26] MEDS: INSULIN GLARGINE SYRINGE. SQ SCH (09:00)
[2021-09-26] MEDS: ASPIRIN CHEWABLE 81 MG TABLET. PO SCH (09:00)
[2021-09-26] MEDS: POTASSIUM CHLORIDE 10MEQ 100 ML IV SCH ×4 (10:05→14:00)
--- NOTE | 2021-09-26 10:18 | PDOC ---
[employer] PROGRESS NOTE Date of Service DOS: DATE: 09/26/21 TIME: 10:17 Chief Complaint Chief Complaint Anemia secondary to acute postoperative blood loss Rectovaginal fistula and Acute abdominal pain. 3: Status post bilateral ureteral stent placement laparoscopic converted to open lysis of adhesions Esparza's procedure and small bowel resection left quadrant colostomy Microcytic anemia - not DEWAYNE. Will type and screen post-op tobacco use disorder Dm2, insulin Hypokalemia - due to poor po Severe protein calorie malnutrition - l HLD - HTN - General surgery consult, psychiatric secretary consult IV abx History of Present Illness History of Present Illness 09/26/2021 No acute events overnight. Patient seen examined bedside. Status post 1 unit PRBC transfusion. Hemoglobin is 7.1 today. We will repeat hemoglobin levels tomorrow. Patient tolerating NG tube clamped. Will DC today and increase activity. Patient's chart, labs, images were reviewed and discussed with RN 09/25/2021 No acute events overnight. Patient seen examined bedside. Resting comfortably. Postop day 3. Hemoglobin of 5.7. Pending 1 unit PRBC transfusion. Pending chest x-ray. Patient's chart, labs, images were reviewed and discussed with RN 09/24/21 No acute events overnight. Postoperative day 2. AF and VSS. Saturating 96% on 2 L nasal cannula. Ostomy is functioning well. Pain is well controlled. Patient is resting comfortably in bed. Patient's chart, labs, images were reviewed and discussed with RN 09/23: Transferred to ICU for supportive care postoperatively. K5.5, Hb 7.6, blood pressure low 80/50. Left hip pain, she thinks is positional. Bicarb, albumin, and levophed ordered. 3: To OR: Status post bilateral ureteral stent placement laparoscopic converted to open lysis of adhesions Esparza's procedure and small bowel resection left quadrant colostomy 09/21: No acute events overnight. Patient seen examined bedside. Still receiving IV TPN. AF and VSS. Coordination for OR on Monday with urology and gynecology and general surgery for perforated diverticulitis and colovaginal fistula. 09/20: Patient seen and examined at bedside this morning sitting upright in NAD. Patient receiving TPN. Plan for surgery monday, waiting on [place] to see her today 09/19: Gen Surg plans sigmoid colectomy, with temporary ileostomy. Vitals/I&O Vitals/I&O: Vital Signs Date Time Temp Pulse Resp B/P (MAP) Pulse Ox O2 Delivery O2 Flow Rate FiO2 09/26/21 09:00 61 133/37 09/26/21 08:00 Nasal Cannula 2.0 09/26/21 07:30 95 09/26/21 07:00 98.5 18 98.5 I & O 09/25/21 09/25/21 09/26/21 15:00 23:00 07:00 Intake Total 400 ml 400 ml Output Total 2000 ml 650 ml Balance 400 ml -1600 ml -650 ml Physical Exam General: Cooperative, No acute distress Heart: Regular rate, Normal S1, Normal S2, No murmurs Lungs: Clear Abdomen: Soft, Other (ostomy with some stool) Extremities: No cyanosis, No edema, Normal pulses Skin: No significant lesion Labs Labs: Laboratory Tests Test 09/25/21 11:48 09/25/21 18:09 09/25/21 21:25 09/26/21 00:12 Glucose (Fingerstick) 142 mg/dL (70-99) 113 mg/dL (70-99) 127 mg/dL (70-99) Hemoglobin 6.9 g/dL (12.0-15.5) Hematocrit 21.2 % (36.0-47.0) Mean Corpuscular Hemoglobin Concent 32 g/dL (31-37) Test 09/26/21 05:25 09/26/21 06:51 White Blood Count 9.1 x10^3/uL (4.0-11.0) Red Blood Count 2.84 x10^6/uL (3.50-5.40) Hemoglobin 7.1 g/dL (12.0-15.5) Hematocrit 21.0 % (36.0-47.0) Mean Corpuscular Volume 74 fL (79-100) Mean Corpuscular Hemoglobin 25 pg (25-35) Mean Corpuscular Hemoglobin Concent 34 g/dL (31-37) Red Cell Distribution Width 18.4 % (11.5-14.5) Platelet Count 351 x10^3/uL (140-400) Neutrophils (%) (Auto) 77 % (31-73) Lymphocytes (%) (Auto) 12 % (24-48) Monocytes (%) (Auto) 7 % (0-9) Eosinophils (%) (Auto) 4 % (0-3) Basophils (%) (Auto) 1 % (0-3) Neutrophils # (Auto) 7.1 x10^3/uL (1.8-7.7) Lymphocytes # (Auto) 1.1 x10^3/uL (1.0-4.8) Monocytes # (Auto) 0.6 x10^3/uL (0.0-1.1) Eosinophils # (Auto) 0.3 x10^3/uL (0.0-0.7) Basophils # (Auto) 0.0 x10^3/uL (0.0-0.2) Sodium Level 141 mmol/L (136-145) Potassium Level 3.5 mmol/L (3.5-5.1) Chloride Level 106 mmol/L (98-107) Carbon Dioxide Level 29 mmol/L (21-32) Anion Gap 6 (6-14) Blood Urea Nitrogen 13 mg/dL (7-20) Creatinine 0.6 mg/dL (0.6-1.0) Estimated GFR (Cockcroft-Gault) 99.1 Glucose Level 142 mg/dL (70-99) Calcium Level 7.4 mg/dL (8.5-10.1) Phosphorus Level 2.7 mg/dL (2.6-4.7) Magnesium Level 1.7 mg/dL (1.8-2.4) Glucose (Fingerstick) 136 mg/dL (70-99) Comment Review of Relevant I have reviewed the following items qasim (where applicable) has been applied. Medications: Current Medications Medications (Trade) Dose Ordered Sig/Gael Route PRN Reason Start Time Stop Time Status Last Admin Dose Admin Sodium Phosphate 20 mmol/Sodium Chloride 256.6667 ml @ 64.167 m... 1X ONCE IV 09/25/21 10:30 09/25/21 14:29 DC 09/25/21 11:13 Magnesium Sulfate 10 meq/ Multivitamins 10 ml/Zinc/Copper/ Manganese/ Selenium 1 ml/ Potassium Phosphate 13.6 mmol/Sodium Chloride 20 meq/ Potassium Acetate 20 meq/Total Parenteral Nutrition/Amino Acids/Dextrose/ Fat Emulsion Intravenous 1,800 ml @ 75 mls/hr TPN CONT IV 09/25/21 22:00 09/26/21 21:59 09/25/21 22:05 Potassium Chloride/Water 100 ml @ 100 mls/hr Q1H IV 09/26/21 09:00 09/26/21 12:59 09/26/21 10:05 Justifications for Admission Other Justification Perforated diverticulitis EVIE RITCHIE MD Sep 26, 2021 10:18
[2021-09-26 11:00] VITALS: BP 151/40
[2021-09-26] MEDS: TPN PER PHARMACY MC PRN (12:05)
--- NOTE | 2021-09-26 12:07 | NUR ---
Pharmacy TPN Dosing Note S: SUZAN CATES is a 70 year old F Currently receiving Central Continuous TPN started 09/19/21 B:Pertinent PMH: rectovaginal fistula, NPO Height: 5 feet, 5 inches Weight: 58.1 kg Current diet: NPO LABS: Sodium: 141 Potassium: 3.5 Chloride: 106 Calcium: 7.4 Corrected Calcium: 9.40 Magnesium: 1.7 CO2: 29 SCr: 0.6 Glucose: 142 Albumin: 1.5 AST: 9 ALT: 7 TPN FORMULA: TPN TYPE: Central Continuous AMINO ACIDS: 65 gm DEXTROSE: 230 gm LIPIDS: 30 gm SODIUM CHLORIDE: 20 mEq POTASSIUM ACETATE: 20 mEq POTASSIUM PHOSPHATE: 15 mmol MAGNESIUM: 14 mEq MULTIPLE VITAMIN: 10 ml TRACE ELEMENTS: 1 ml(s) TPN PLAN: Magnesium increased to 14meq/bag due to low mag level. BMP, Phos, Mag triglycerides ordered for am R: Change TPN as above. Will monitor electrolytes, glucose, and tolerance to TPN. Deni Aguirre [facility], 09/26/21 [id number]
[2021-09-26 15:00] VITALS: BP 136/53
[2021-09-26] MEDS: IV NORMAL SALINE 1000ML BAG 1,000 ML IV SCH (18:55)
[2021-09-26 19:00] VITALS: BP 142/56
[2021-09-26] MEDS: ATORVASTATIN CALCIUM 20 MG TABLET PO SCH (21:35)
[2021-09-26] MEDS: ENOXAPARIN 40 MG/0.4 ML SYRINGE. SQ SCH (21:36)
[2021-09-26] MEDS ORDERED: [UNRECOGNIZED DRUG - OTHER] IV SCH (22:00)
[2021-09-26] MEDS ORDERED: DEXTROSE 70% IV SCH ×2 (22:00)
[2021-09-26] MEDS ORDERED: TOTAL PARENTERAL NUTRITION IV SCH ×2 (22:00)
[2021-09-26] MEDS ORDERED: [UNRECOGNIZED DRUG - OTHER] IV SCH (22:00)
[2021-09-26] MEDS ORDERED: AMINO ACID IV SCH ×2 (22:00)
[2021-09-26 23:00] VITALS: BP 138/60
[2021-09-27 03:00] VITALS: BP 142/54
[2021-09-27] MEDS: PIPERACILLIN/TAZOBACTAM 3.375 GM in IV NORMAL SALINE 50ML 50 ML IV SCH ×4 (05:51→23:47)
[2021-09-27] MEDS: INSULIN LISPRO 300 UNITS/3 ML VIAL. SQ SCH ×3 (06:00→18:00)
[2021-09-27 06:29] LABS: CALCIUM 8.3 mg/dL (8.5-10.1); CREATININE 0.6 mg/dL (0.6-1.0); GFR 99.1; MAGNESIUM 2.3 mg/dL (1.8-2.4); PHOSPHORUS 2.4 mg/dL (2.6-4.7); POTASSIUM 3.9 mmol/L (3.5-5.1)
[2021-09-27 07:00] VITALS: BP 141/36
--- NOTE | 2021-09-27 08:45 | PDOC ---
SURGICAL PROGRESS NOTE DATE: 09/27/21 TIME: 08:44 Subjective Patient states she feels uncomfortable but nothing specific tolerating clear liquids Vital Signs Vital Signs Date Time Temp Pulse Resp B/P (MAP) Pulse Ox O2 Delivery O2 Flow Rate FiO2 09/27/21 08:00 Nasal Cannula 2.0 09/27/21 07:00 98.1 65 18 141/36 (71) 95 98.1 I&O Intake and Output 09/27/21 07:00 Intake Total 60 ml Output Total 2400 ml Balance -2340 ml Intake Oral 60 ml Output Urine Total 2400 ml PATIENT HAS A GRIGGS: Yes General: Alert, Oriented X3, Cooperative, mild distress Abdomen: Normal bowel sounds, Soft, Other (Incisional tenderness wounds clean dry and intact ostomy is pink and viable scant output) Labs Laboratory Tests Test 09/25/21 11:48 09/25/21 18:09 09/25/21 21:25 09/26/21 00:12 Glucose (Fingerstick) 142 mg/dL (70-99) 113 mg/dL (70-99) 127 mg/dL (70-99) Hemoglobin 6.9 g/dL (12.0-15.5) Hematocrit 21.2 % (36.0-47.0) Mean Corpuscular Hemoglobin Concent 32 g/dL (31-37) Test 09/26/21 05:25 09/26/21 06:51 09/26/21 12:12 09/26/21 23:53 White Blood Count 9.1 x10^3/uL (4.0-11.0) Red Blood Count 2.84 x10^6/uL (3.50-5.40) Hemoglobin 7.1 g/dL (12.0-15.5) Hematocrit 21.0 % (36.0-47.0) Mean Corpuscular Volume 74 fL (79-100) Mean Corpuscular Hemoglobin 25 pg (25-35) Mean Corpuscular Hemoglobin Concent 34 g/dL (31-37) Red Cell Distribution Width 18.4 % (11.5-14.5) Platelet Count 351 x10^3/uL (140-400) Neutrophils (%) (Auto) 77 % (31-73) Lymphocytes (%) (Auto) 12 % (24-48) Monocytes (%) (Auto) 7 % (0-9) Eosinophils (%) (Auto) 4 % (0-3) Basophils (%) (Auto) 1 % (0-3) Neutrophils # (Auto) 7.1 x10^3/uL (1.8-7.7) Lymphocytes # (Auto) 1.1 x10^3/uL (1.0-4.8) Monocytes # (Auto) 0.6 x10^3/uL (0.0-1.1) Eosinophils # (Auto) 0.3 x10^3/uL (0.0-0.7) Basophils # (Auto) 0.0 x10^3/uL (0.0-0.2) Sodium Level 141 mmol/L (136-145) Potassium Level 3.5 mmol/L (3.5-5.1) Chloride Level 106 mmol/L (98-107) Carbon Dioxide Level 29 mmol/L (21-32) Anion Gap 6 (6-14) Blood Urea Nitrogen 13 mg/dL (7-20) Creatinine 0.6 mg/dL (0.6-1.0) Estimated GFR (Cockcroft-Gault) 99.1 Glucose Level 142 mg/dL (70-99) Calcium Level 7.4 mg/dL (8.5-10.1) Phosphorus Level 2.7 mg/dL (2.6-4.7) Magnesium Level 1.7 mg/dL (1.8-2.4) Glucose (Fingerstick) 136 mg/dL (70-99) 143 mg/dL (70-99) 126 mg/dL (70-99) Test 09/27/21 05:55 09/27/21 05:56 Sodium Level 142 mmol/L (136-145) Potassium Level 3.9 mmol/L (3.5-5.1) Chloride Level 106 mmol/L (98-107) Carbon Dioxide Level 29 mmol/L (21-32) Anion Gap 7 (6-14) Blood Urea Nitrogen 12 mg/dL (7-20) Creatinine 0.6 mg/dL (0.6-1.0) Estimated GFR (Cockcroft-Gault) 99.1 Glucose Level 107 mg/dL (70-99) Calcium Level 8.3 mg/dL (8.5-10.1) Phosphorus Level 2.4 mg/dL (2.6-4.7) Magnesium Level 2.3 mg/dL (1.8-2.4) Triglycerides Level 134 mg/dL (0-150) Glucose (Fingerstick) 104 mg/dL (70-99) Laboratory Tests Test 09/26/21 12:12 09/26/21 23:53 09/27/21 05:55 09/27/21 05:56 Glucose (Fingerstick) 143 mg/dL (70-99) 126 mg/dL (70-99) 104 mg/dL (70-99) Sodium Level 142 mmol/L (136-145) Potassium Level 3.9 mmol/L (3.5-5.1) Chloride Level 106 mmol/L (98-107) Carbon Dioxide Level 29 mmol/L (21-32) Anion Gap 7 (6-14) Blood Urea Nitrogen 12 mg/dL (7-20) Creatinine 0.6 mg/dL (0.6-1.0) Estimated GFR (Cockcroft-Gault) 99.1 Glucose Level 107 mg/dL (70-99) Calcium Level 8.3 mg/dL (8.5-10.1) Phosphorus Level 2.4 mg/dL (2.6-4.7) Magnesium Level 2.3 mg/dL (1.8-2.4) Triglycerides Level 134 mg/dL (0-150) Assessment/Plan 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
[2021-09-27] MEDS: PANTOPRAZOLE IV PUSH 40 MG VIAL. IVP SCH (09:10)
--- NOTE | 2021-09-27 10:58 | NUR ---
SW following. Discussed with RN, pt from home, 2L (does not use oxygen at home), clear liquid diet - advancing today. 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 Pt not yet ready for discharge. SW will continue to follow.
--- NOTE | 2021-09-27 10:59 | PDOC ---
Date of Service: DATE: 09/27/21 TIME: 10:54 Subjective: Subjective: Pain 8/10, concern that pain meds are to be changed to something that doesn't work as well. NG out - taking some clears. Objective: Objective: D/w nurse - ostomy bag was leaking early and changed. Vital Signs: Vital Signs Date Time Temp Pulse Resp B/P (MAP) Pulse Ox O2 Delivery O2 Flow Rate FiO2 09/27/21 08:00 Nasal Cannula 2.0 09/27/21 07:00 98.1 65 18 141/36 (71) 95 98.1 Labs: Laboratory Tests Test 09/26/21 12:12 09/26/21 23:53 09/27/21 05:55 09/27/21 05:56 Glucose (Fingerstick) 143 mg/dL 126 mg/dL 104 mg/dL Sodium Level 142 mmol/L Potassium Level 3.9 mmol/L Chloride Level 106 mmol/L Carbon Dioxide Level 29 mmol/L Anion Gap 7 Blood Urea Nitrogen 12 mg/dL Creatinine 0.6 mg/dL Estimated GFR (Cockcroft-Gault) 99.1 Glucose Level 107 mg/dL Calcium Level 8.3 mg/dL Phosphorus Level 2.4 mg/dL Magnesium Level 2.3 mg/dL Triglycerides Level 134 mg/dL Imaging: CXR 09/25 IMPRESSION: 1. Life-support devices as above. 2. Mild interstitial opacities, which may reflect trace edema. PE: GEN: NAD, voice quiet LUNGS: weak cough, NC 2L HEART: RRR ABD: tender, soft, ostomy bag just changed/empty NEURO/PSYCH: A & O 3, depressed A/P: S/p resection/ostomy (perf diverticulitis, fistulas) DEWAYNE - needed transfusion post-op -- Provided encouragement. Pain control/diet per primary/surgery. Justicifation of Admission Dx: Justifications for Admission: Justification of Admission Dx: Yes Sepsis: Infection ALEXSANDER TAFOYA Sep 27, 2021 10:59
[2021-09-27 11:07] VITALS: BP 141/60
--- NOTE | 2021-09-27 11:15 | PDOC ---
[employer] PROGRESS NOTE Date of Service DOS: DATE: 09/27/21 TIME: 11:13 Chief Complaint Chief Complaint Anemia secondary to acute postoperative blood loss Rectovaginal fistula and Acute abdominal pain. 32: Status post bilateral ureteral stent placement laparoscopic converted to open lysis of adhesions Esparza's procedure and small bowel resection left quadrant colostomy Microcytic anemia - not DEWAYNE. Will type and screen post-op tobacco use disorder Dm2, insulin Hypokalemia - due to poor po Severe protein calorie malnutrition - l HLD - HTN - General surgery consult, project associate consult IV abx History of Present Illness History of Present Illness 09/27/2021 No acute events overnight. Patient seen examined bedside. Saturating 95% on 2 L nasal cannula. AF and VSS. Pending hemoglobin levels. Able to sit on the side of the bed. She still needs help transitioning to recliner with physical therapy. Tolerating clears. Diet per surgery. Still on VULCANIZER Dilaudid and will attempt to transition to p.o. pain medications. 09/26/2021 No acute events overnight. Patient seen examined bedside. Status post 1 unit PRBC transfusion. Hemoglobin is 7.1 today. We will repeat hemoglobin levels tomorrow. Patient tolerating NG tube clamped. Will DC today and increase activity. Patient's chart, labs, images were reviewed and discussed with RN 09/25/2021 No acute events overnight. Patient seen examined bedside. Resting comfortably. Postop day 3. Hemoglobin of 5.7. Pending 1 unit PRBC transfusion. Pending chest x-ray. Patient's chart, labs, images were reviewed and discussed with RN 09/24/21 No acute events overnight. Postoperative day 2. AF and VSS. Saturating 96% on 2 L nasal cannula. Ostomy is functioning well. Pain is well controlled. Patient is resting comfortably in bed. Patient's chart, labs, images were reviewed and discussed with RN 09/23: Transferred to ICU for supportive care postoperatively. K5.5, Hb 7.6, bloo d pressure low 80/50. Left hip pain, she thinks is positional. Bicarb, albumin, and levophed ordered. 32: To OR: Status post bilateral ureteral stent placement laparoscopic converted to open lysis of adhesions Esparza's procedure and small bowel resection left quadrant colostomy 09/21: No acute events overnight. Patient seen examined bedside. Still receiving IV TPN. AF and VSS. Coordination for OR on Monday with urology and gynecology and general surgery for perforated diverticulitis and colovaginal fistula. 09/20: Patient seen and examined at bedside this morning sitting upright in NAD. Patient receiving TPN. Plan for surgery monday, waiting on [place] to see her today 09/19: Gen Surg plans sigmoid colectomy, with temporary ileostomy. Vitals/I&O Vitals/I&O: Vital Signs Date Time Temp Pulse Resp B/P (MAP) Pulse Ox O2 Delivery O2 Flow Rate FiO2 09/27/21 11:07 98.0 72 20 141/60 (87) 91 Nasal Cannula 2.0 98.0 I & O 09/26/21 09/26/21 09/27/21 15:00 23:00 07:00 Intake Total 60 ml Output Total 1900 ml 500 ml Balance -1840 ml -500 ml Physical Exam General: Alert, Oriented X3, Cooperative, mild distress Heart: Regular rate, Normal S1, Normal S2, No murmurs Lungs: Clear Abdomen: Normal bowel sounds, Soft, Other (Incisional tenderness wounds clean dry and intact ostomy is pink and viable scant output) Extremities: No cyanosis, No edema, Normal pulses Skin: No significant lesion Labs Labs: Laboratory Tests Test 09/26/21 12:12 09/26/21 23:53 09/27/21 05:55 09/27/21 05:56 Glucose (Fingerstick) 143 mg/dL (70-99) 126 mg/dL (70-99) 104 mg/dL (70-99) Sodium Level 142 mmol/L (136-145) Potassium Level 3.9 mmol/L (3.5-5.1) Chloride Level 106 mmol/L (98-107) Carbon Dioxide Level 29 mmol/L (21-32) Anion Gap 7 (6-14) Blood Urea Nitrogen 12 mg/dL (7-20) Creatinine 0.6 mg/dL (0.6-1.0) Estimated GFR (Cockcroft-Gault) 99.1 Glucose Level 107 mg/dL (70-99) Calcium Level 8.3 mg/dL (8.5-10.1) Phosphorus Level 2.4 mg/dL (2.6-4.7) Magnesium Level 2.3 mg/dL (1.8-2.4) Triglycerides Level 134 mg/dL (0-150) Comment Review of Relevant I have reviewed the following items qasim (where applicable) has been applied. Medications: Current Medications Medications (Trade) Dose Ordered Sig/Gael Route PRN Reason Start Time Stop Time Status Last Admin Dose Admin Magnesium Sulfate 14 meq/ Multivitamins 10 ml/Zinc/Copper/ Manganese/ Selenium 1 ml/ Potassium Phosphate 13.6 mmol/Sodium Chloride 20 meq/ Potassium Acetate 20 meq/Total Parenteral Nutrition/Amino Acids/Dextrose/ Fat Emulsion Intravenous 1,800 ml @ 75 mls/hr TPN CONT IV 09/26/21 22:00 09/27/21 21:59 09/26/21 21:37 Justifications for Admission Other Justification Perforated diverticulitis EVIE RITCHIE MD Sep 27, 2021 11:15
[2021-09-27] MEDS: TPN PER PHARMACY MC PRN ×2 (11:32→11:35)
--- NOTE | 2021-09-27 11:37 | NUR ---
Pharmacy TPN Dosing Note S: SUZAN CATES is a 70 year old F Currently receiving Central Continuous TPN started 09/19/21 B:Pertinent PMH: rectovaginal fistula, NPO Height: 5 feet, 5 inches Weight: 58.1 kg Current diet: Clears LABS: Sodium: 142 Potassium: 3.9 Chloride: 106 Calcium: 8.3 Corrected Calcium: 10.30 Magnesium: 2.3 CO2: 29 SCr: 0.6 Glucose: 104 Albumin: 1.5 AST: 9 ALT: 7 TPN FORMULA: TPN TYPE: Central Continuous AMINO ACIDS: 65 gm DEXTROSE: 230 gm LIPIDS: 30 gm SODIUM CHLORIDE: 20 mEq POTASSIUM ACETATE: 20 mEq POTASSIUM PHOSPHATE: 15 mmol MAGNESIUM: 14 mEq MULTIPLE VITAMIN: 10 ml TRACE ELEMENTS: 1 ml(s) TPN PLAN: Kphos 15mmol x1 IVPB and increased in TPN. Repeat labs tomorrow R: Change TPN per plan and ordered formula Will monitor electrolytes, glucose, and tolerance to TPN. Shaniqua Agosto Vj, 09/27/21 [id number]
[2021-09-27] MEDS: ASPIRIN CHEWABLE 81 MG TABLET. PO SCH (12:27)
[2021-09-27] MEDS: LISINOPRIL 20 MG TABLET PO SCH (12:27)
[2021-09-27] MEDS: hydroCHLOROthiazide 12.5 MG CAPSULE PO SCH (12:28)
[2021-09-27] MEDS: hydrALAZINE 25 MG TABLET PO SCH (12:28)
--- NOTE | 2021-09-27 12:54 | NUR ---
Ostomy care WC/ostomy nurse assessment of stoma. Pt had flat 1 piece bag that was cut out too large for stoma. Lazaro-stomal skin was macerated and reddened. Removed bag, cleansed area with warm washcloth, applied stoma powder to peristomal skin, applied stoma ring and convex one-piece bag that was cut the same size as stoma. Good seal obtained. Template left in room with extra powder, ring and pre-cut bag. [facility] will check on pt daily to ensure good seal. Pt educated on need for water only to lazaro-stomal skin as well as hw to apply ostomy bag. Will continue to follow and will do formal teaching prior to discharge. Pt will need preparation supervisor freezing if discharged with home health
[2021-09-27] MEDS ORDERED: POTASSIUM PHOSPHATE DIBASIC 15 MMOL in IV NS 100 ML IV ONE (13:00)
[2021-09-27 15:00] VITALS: BP 118/57
[2021-09-27] MEDS: IV NORMAL SALINE 1000ML BAG 1,000 ML IV SCH (17:45)
[2021-09-27] MEDS: HYDROmorphone 12mg/30ml PCA 30 ML IV PRN (18:09)
[2021-09-27 19:00] VITALS: BP 120/47
[2021-09-27] MEDS: ATORVASTATIN CALCIUM 20 MG TABLET PO SCH (21:26)
[2021-09-27] MEDS: ENOXAPARIN 40 MG/0.4 ML SYRINGE. SQ SCH (21:27)
[2021-09-27] MEDS ORDERED: TOTAL PARENTERAL NUTRITION IV SCH (22:00)
[2021-09-27] MEDS ORDERED: [UNRECOGNIZED DRUG - OTHER] IV SCH (22:00)
[2021-09-27] MEDS ORDERED: DEXTROSE 70% IV SCH (22:00)
[2021-09-27] MEDS ORDERED: AMINO ACID IV SCH (22:00)
[2021-09-27] MEDS: MAG HYDROX/ALUMINUM HYD/SIMETH 30 ML ORAL.SUSP PO PRN (22:22)
[2021-09-27 23:00] VITALS: BP 123/51
[2021-09-28 03:00] VITALS: BP 113/54
[2021-09-28] MEDS: PIPERACILLIN/TAZOBACTAM 3.375 GM in IV NORMAL SALINE 50ML 50 ML IV SCH ×3 (05:41→18:00)
[2021-09-28] MEDS: INSULIN LISPRO 300 UNITS/3 ML VIAL. SQ SCH ×4 (06:00→18:00)
[2021-09-28 07:15] LABS: CALCIUM 7.5 mg/dL (8.5-10.1); CREATININE 0.9 mg/dL (0.6-1.0); GFR 62.1; MAGNESIUM 1.9 mg/dL (1.8-2.4); PHOSPHORUS 3.4 mg/dL (2.6-4.7); POTASSIUM 3.5 mmol/L (3.5-5.1)
[2021-09-28 07:30] VITALS: BP 138/50
[2021-09-28] MEDS: PANTOPRAZOLE IV PUSH 40 MG VIAL. IVP SCH (07:53)
[2021-09-28] MEDS: ASPIRIN CHEWABLE 81 MG TABLET. PO SCH (07:56)
[2021-09-28] MEDS: hydroCHLOROthiazide 12.5 MG CAPSULE PO SCH ×2 (07:56→08:01)
[2021-09-28] MEDS: LISINOPRIL 20 MG TABLET PO SCH (07:57)
[2021-09-28] MEDS: hydrALAZINE 25 MG TABLET PO SCH (07:59)
--- NOTE | 2021-09-28 10:23 | PDOC ---
Date of Service: DATE: 09/28/21 TIME: 10:20 Subjective: Subjective: Just had a coughing fit, feels terrible, really sore. Objective: Vital Signs: Vital Signs Date Time Temp Pulse Resp B/P (MAP) Pulse Ox O2 Delivery O2 Flow Rate FiO2 09/28/21 08:00 Nasal Cannula 2.0 09/28/21 07:59 69 138/50 09/28/21 07:30 97.9 20 94 97.9 Labs: Laboratory Tests Test 09/27/21 11:15 09/27/21 11:55 09/27/21 18:37 09/28/21 00:01 Hemoglobin 7.7 g/dL Glucose (Fingerstick) 130 mg/dL 113 mg/dL 144 mg/dL Test 09/28/21 05:56 09/28/21 06:00 Glucose (Fingerstick) 117 mg/dL Sodium Level 147 mmol/L Potassium Level 3.5 mmol/L Chloride Level 105 mmol/L Carbon Dioxide Level 25 mmol/L Anion Gap 17 Blood Urea Nitrogen 15 mg/dL Creatinine 0.9 mg/dL Estimated GFR (Cockcroft-Gault) 62.1 Glucose Level 105 mg/dL Calcium Level 7.5 mg/dL Phosphorus Level 3.4 mg/dL Magnesium Level 1.9 mg/dL PE: GEN: leaning forward in bed, has tray of clear liquids LUNGS: wheezing bilaterally, coughing, NC 2L HEART: RRR ABD: soft, ostomy bag empty - says was recently changed NEURO/PSYCH: A & O 3, depressed A/P: S/p resection/ostomy (perf diverticulitis, fistulas) DEWAYNE Cough - defer to primary, had CXR on 09/25 -- Continue support GI-briseno. Justicifation of Admission Dx: Justifications for Admission: Justification of Admission Dx: Yes Sepsis: Infection ALEXSANDER TAFOYA Sep 28, 2021 10:23
[2021-09-28 11:04] VITALS: BP 112/50
[2021-09-28] MEDS: TPN PER PHARMACY MC PRN (11:19)
--- NOTE | 2021-09-28 11:21 | NUR ---
Pharmacy TPN Dosing Note S: SUZAN CATES is a 70 year old F Currently receiving Central Continuous TPN started 09/19/21 B:Pertinent PMH: Current diet: Clears LABS: Sodium: 147 Potassium: 3.5 Chloride: 105 Calcium: 7.5 Corrected Calcium: 9.50 Magnesium: 1.9 CO2: 25 SCr: 0.9 Glucose: 105 Albumin: 1.5 AST: 9 ALT: 7 TPN FORMULA: TPN TYPE: Central Continuous AMINO ACIDS: 65 gm DEXTROSE: 230 gm LIPIDS: 30 gm SODIUM CHLORIDE: 10 mEq SODIUM ACETATE: - mEq SODIUM PHOSPHATE: - mmol POTASSIUM CHLORIDE: - mEq POTASSIUM ACETATE: 20 mEq POTASSIUM PHOSPHATE: 15 mmol MAGNESIUM: 14 mEq CALCIUM: - mEq INSULIN: - units MULTIPLE VITAMIN: 10 ml TRACE ELEMENTS: 1 ml(s) TPN PLAN: decrease Sodium in TPN Repeat labs tomorrow R: Change TPN as above Will monitor electrolytes, glucose, and tolerance to TPN. SHARI ANGULO [facility], 09/28/21 1121
[2021-09-28] MEDS: MAG HYDROX/ALUMINUM HYD/SIMETH 30 ML ORAL.SUSP PO PRN (12:01)
--- NOTE | 2021-09-28 13:48 | PDOC ---
[facility] PROGRESS NOTE Date of Service DOS: DATE: 09/28/21 TIME: 13:47 Chief Complaint Chief Complaint Anemia secondary to acute postoperative blood loss Rectovaginal fistula and Acute abdominal pain. 32: Status post bilateral ureteral stent placement laparoscopic converted to open lysis of adhesions Esparza's procedure and small bowel resection left quadrant colostomy Microcytic anemia - not DEWAYNE. Will type and screen post-op tobacco use disorder Dm2, insulin Hypokalemia - due to poor po Severe protein calorie malnutrition - l HLD - HTN - General surgery consult, data collection technician consult IV abx History of Present Illness History of Present Illness 09/28, pain and nausea cont current OOB to chair as able 09/27/2021 No acute events overnight. Patient seen examined bedside. Saturating 95% on 2 L nasal cannula. AF and VSS. Pending hemoglobin levels. Able to sit on the side of the bed. She still needs help transitioning to recliner with physical therapy. Tolerating clears. Diet per surgery. 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 pain medications. 09/26/2021 No acute events overnight. Patient seen examined bedside. Status post 1 unit PRBC transfusion. Hemoglobin is 7.1 today. We will repeat hemoglobin levels tomorrow. Patient tolerating NG tube clamped. Will DC today and increase activity. Patient's chart, labs, images were reviewed and discussed with RN 09/25/2021 No acute events overnight. Patient seen examined bedside. Resting comfortably. Postop day 3. Hemoglobin of 5.7. Pending 1 unit PRBC transfusion. Pending chest x-ray. Patient's chart, labs, images were reviewed and discussed with RN 09/24/21 No acute events overnight. Postoperative day 2. AF and VSS. Saturating 96% on 2 L nasal cannula. Ostomy is functioning well. Pain is well controlled. Patient is resting comfortably in bed. Patient's chart, labs, images were reviewed and discussed with RN 09/23: Transferred to ICU for supportive care postoperatively. K5.5, Hb 7.6, blood pressure low 80/50. Left hip pain, she thinks is positional. Bicarb, albumin, and levophed ordered. 32: To OR: Status post bilateral ureteral stent placement laparoscopic converted to open lysis of adhesions Esparza's procedure and small bowel resection left quadrant colostomy 3: No acute events overnight. Patient seen examined bedside. Still receiving IV TPN. AF and VSS. Coordination for OR on Monday with urology and gynecology and general surgery for perforated diverticulitis and colovaginal fistula. 09/20: Patient seen and examined at bedside this morning sitting upright in NAD. Patient receiving TPN. Plan for surgery monday, waiting on [place] to see her today 09/19: Gen Surg plans sigmoid colectomy, with temporary ileostomy. Vitals/I&O Vitals/I&O: Vital Signs Date Time Temp Pulse Resp B/P (MAP) Pulse Ox O2 Delivery O2 Flow Rate FiO2 09/28/21 11:04 98.2 74 20 112/50 (70) 95 Nasal Cannula 2.0 98.2 I & O 09/27/21 09/27/21 09/28/21 15:00 23:00 07:00 Intake Total 360 ml 120 ml 50 ml Output Total 450 ml 200 ml 150 ml Balance -90 ml -80 ml -100 ml Physical Exam General: Alert, Oriented X3, Cooperative, mild distress Heart: Regular rate, Normal S1, Normal S2, No murmurs Lungs: Clear Abdomen: Normal bowel sounds, Soft, Other (Incisional tenderness wounds clean dry and intact ostomy is pink and viable scant output) Extremities: No cyanosis, No edema, Normal pulses Skin: No significant lesion Labs Labs: Laboratory Tests Test 09/27/21 18:37 09/28/21 00:01 09/28/21 05:56 09/28/21 06:00 Glucose (Fingerstick) 113 mg/dL (70-99) 144 mg/dL (70-99) 117 mg/dL (70-99) Sodium Level 147 mmol/L (136-145) Potassium Level 3.5 mmol/L (3.5-5.1) Chloride Level 105 mmol/L (98-107) Carbon Dioxide Level 25 mmol/L (21-32) Anion Gap 17 (6-14) Blood Urea Nitrogen 15 mg/dL (7-20) Creatinine 0.9 mg/dL (0.6-1.0) Estimated GFR (Cockcroft-Gault) 62.1 Glucose Level 105 mg/dL (70-99) Calcium Level 7.5 mg/dL (8.5-10.1) Phosphorus Level 3.4 mg/dL (2.6-4.7) Magnesium Level 1.9 mg/dL (1.8-2.4) Test 09/28/21 12:16 Glucose (Fingerstick) 127 mg/dL (70-99) Comment Review of Relevant I have reviewed the following items qasim (where applicable) has been applied. Medications: Current Medications Medications (Trade) Dose Ordered Sig/Gael Route PRN Reason Start Time Stop Time Status Last Admin Dose Admin Sodium Chloride 20 meq/Potassium Acetate 20 meq/ Potassium Phosphate 15 mmol/ Magnesium Sulfate 14 meq/ Multivitamins 10 ml/Zinc/Copper/ Manganese/ Selenium 1 ml/ Total Parenteral Nutrition/Amino Acids/Dextrose/ Fat Emulsion Intravenous 1,800 ml @ 75 mls/hr TPN CONT IV 09/27/21 22:00 09/28/21 21:59 09/27/21 21:30 Al Hydroxide/Mg Hydroxide (Mylanta Plus Xs) 30 ml PRN Q2HR PRN PO HEARTBURN / GAS 09/27/21 22:15 09/28/21 12:01 Justifications for Admission Other Justification Perforated diverticulitis CHRIS ROLLE MD Sep 28, 2021 13:48
--- NOTE | 2021-09-28 14:56 | PDOC ---
SURGICAL PROGRESS NOTE DATE: 09/28/21 TIME: 14:54 Subjective Pt feels some better, coughing causes pain Vital Signs Vital Signs Date Time Temp Pulse Resp B/P (MAP) Pulse Ox O2 Delivery O2 Flow Rate FiO2 09/28/21 11:04 98.2 74 20 112/50 (70) 95 Nasal Cannula 2.0 98.2 I&O Intake and Output 09/28/21 07:00 Intake Total 530 ml Output Total 800 ml Balance -270 ml Intake Oral 480 ml IV Total 50 ml Output Urine Total 800 ml General: Alert, Oriented X3, Cooperative, mild distress Abdomen: Soft, Other (ostomy fxn and viable) Labs Laboratory Tests Test 09/26/21 23:53 09/27/21 05:55 09/27/21 05:56 09/27/21 11:15 Glucose (Fingerstick) 126 mg/dL (70-99) 104 mg/dL (70-99) Sodium Level 142 mmol/L (136-145) Potassium Level 3.9 mmol/L (3.5-5.1) Chloride Level 106 mmol/L (98-107) Carbon Dioxide Level 29 mmol/L (21-32) Anion Gap 7 (6-14) Blood Urea Nitrogen 12 mg/dL (7-20) Creatinine 0.6 mg/dL (0.6-1.0) Estimated GFR (Cockcroft-Gault) 99.1 Glucose Level 107 mg/dL (70-99) Calcium Level 8.3 mg/dL (8.5-10.1) Phosphorus Level 2.4 mg/dL (2.6-4.7) Magnesium Level 2.3 mg/dL (1.8-2.4) Triglycerides Level 134 mg/dL (0-150) Hemoglobin 7.7 g/dL (12.0-15.5) Test 09/27/21 11:55 09/27/21 18:37 09/28/21 00:01 09/28/21 05:56 Glucose (Fingerstick) 130 mg/dL (70-99) 113 mg/dL (70-99) 144 mg/dL (70-99) 117 mg/dL (70-99) Test 09/28/21 06:00 09/28/21 12:16 Sodium Level 147 mmol/L (136-145) Potassium Level 3.5 mmol/L (3.5-5.1) Chloride Level 105 mmol/L (98-107) Carbon Dioxide Level 25 mmol/L (21-32) Anion Gap 17 (6-14) Blood Urea Nitrogen 15 mg/dL (7-20) Creatinine 0.9 mg/dL (0.6-1.0) Estimated GFR (Cockcroft-Gault) 62.1 Glucose Level 105 mg/dL (70-99) Calcium Level 7.5 mg/dL (8.5-10.1) Phosphorus Level 3.4 mg/dL (2.6-4.7) Magnesium Level 1.9 mg/dL (1.8-2.4) Glucose (Fingerstick) 127 mg/dL (70-99) Laboratory Tests Test 09/27/21 18:37 09/28/21 00:01 09/28/21 05:56 09/28/21 06:00 Glucose (Fingerstick) 113 mg/dL (70-99) 144 mg/dL (70-99) 117 mg/dL (70-99) Sodium Level 147 mmol/L (136-145) Potassium Level 3.5 mmol/L (3.5-5.1) Chloride Level 105 mmol/L (98-107) Carbon Dioxide Level 25 mmol/L (21-32) Anion Gap 17 (6-14) Blood Urea Nitrogen 15 mg/dL (7-20) Creatinine 0.9 mg/dL (0.6-1.0) Estimated GFR (Cockcroft-Gault) 62.1 Glucose Level 105 mg/dL (70-99) Calcium Level 7.5 mg/dL (8.5-10.1) Phosphorus Level 3.4 mg/dL (2.6-4.7) Magnesium Level 1.9 mg/dL (1.8-2.4) Test 09/28/21 12:16 Glucose (Fingerstick) 127 mg/dL (70-99) Assessment/Plan s/p nickolas will try diet cont supportive care. Justicifation of Admission Dx: Justifications for Admission: Justification of Admission Dx: Yes Sepsis: Infection ARLETTE WAY MD Sep 28, 2021 14:55
[2021-09-28 15:12] VITALS: BP 128/47
[2021-09-28] MEDS: HYDROmorphone 12mg/30ml PCA 30 ML IV PRN (15:46)
--- NOTE | 2021-09-28 17:07 | PATHOLOGY ---
[facility] Accession Number: [id number] . 01 Material submitted: . PART A: sigmoid colon - SIGMOID COLON PART B: small intestine - SMALL INTESTINE . 01 Clinical history: . RECTAL/VAGINAL FISTULA LAPAROSCOPIC (SEE REQ) TO OPEN COLECTOMY . 02 Diagnosis: A. Segment of colon and attached mesocolon, sigmoid colon segmental resection: - Diverticulosis. - Acute and chronic diverticulitis, extensive, with pericolic abscesses, and with extensive serosal fibrosis, adhesions, and acute and chronic inflammation with possible foci of perforation. - Reactive changes of mesocolic lymph nodes. . B. Segment of small intestine, segmental resection: - Focal serosal fibrosis, adhesions, and acute inflammation with associated defect of wall of small intestine consistent with enteric fistula. (JPM:[facility]; 09/28/2021) [facility] 09/28/2021 1639 Local . 02 Comment: There is no evidence of malignancy. . 02 Electronically signed: . Bala Chauhan MD, Pathologist NPI- [id number] . 01 Gross description: . A. The specimen is received in formalin, labeled "Maia Griffin, sigmoid colon". Received is an unoriented, segment of large bowel, measuring 18.0 cm in length by 2.5-5.3 cm in diameter, with 2 stapled margins, and a minimal amount of attached adipose tissue. An suture is attached to the distal end of the specimen. The proximal serosa appears esquivel-pink, smooth and glistening. The external surface of the distal half of the specimen appears esquivel-pink to dark brown, focally hemorrhagic, shaggy, with extensive adhesions. Opening reveals the distal half of the specimen to be strictured and firm. The specimen is serially sectioned, perpendicular to long axis. Sectioning reveals multiple diverticula, several of which display evidence of possible rupture. The soft tissue surrounding the areas of possible rupture appear firm and fibrotic. The remaining uninvolved mucosa appears esquivel-pink, folded and unremarkable. The wall thickness ranges from 0.3-0.7 cm. Dissection of the pericolic adipose tissue yields 5 candidate lymph nodes, ranging in size from 0.2-0.4 cm, in greatest dimension. Photographs are obtained. Electron Beam Photo Mask Technician sections are submitted as follows: . A1-A2: Proximal margin, en face A3: Distal margin, en face, A4-A16: Areas of possible rupture (A10-A11= 1 section, bisected) A17-A18: Additional diverticula A19: Uninvolved proximal mucosa A20: 5 candidate lymph nodes . B. The specimen is received in formalin, labeled "Maia Griffin, small intestine". Received is an unoriented, segment of small bowel, measuring 15.0 cm in length and 3.0 cm in diameter. The segment of bowel has 2 stapled margins and a minimal amount of attached messentary. The serosal surface displays a full thickness defect located 3.7 cm from the closest stapled margin. The area surrounding the defect appears esquivel-purple, dusky, fibrous, roughened and has a moderate amount of exudate. The remaining serosal surface appears esquivel-purple, dusky with a moderate amount of adhesions. Opening reveals a green fecal contents and fibropurulent material. The mucosal surface appears esquivel-pink, folded, and unremarkable. Photographs are obtained. Electron Beam Photo Mask Technician sections are submitted as follows: . B1: Margin furthest from defect, en face B2: Margin closest to defect, en face B3: Area of defect B4: Uninvolved small bowel ([facility]; 09/24/2021) [facility] 09/28/2021 1215 Local . 02 Pathologist provided ICD-10: K57.32, K57.30, K52.9 . 02 CPT . 482792, [id number] Specimen Comment: A courtesy copy of this report has been sent to [phone], [phone] Specimen Comment: [id number], Specimen Comment: Report sent to , DR NAILS / DR GAMING Performed at: [address] [place], [place] [address] [address], [place], [place] [id number] MD Pradip Boyle MD Phone: [phone] Performed at: [address] [id number] MD Bala Chauhan MD Phone: [phone]
[2021-09-28] MEDS: IV NORMAL SALINE 1000ML BAG 1,000 ML IV SCH (17:45)
[2021-09-28 19:15] VITALS: BP 120/47
[2021-09-28] MEDS: ATORVASTATIN CALCIUM 20 MG TABLET PO SCH (21:58)
[2021-09-28] MEDS: ENOXAPARIN 40 MG/0.4 ML SYRINGE. SQ SCH (21:58)
[2021-09-28] MEDS ORDERED: TOTAL PARENTERAL NUTRITION IV SCH (22:00)
[2021-09-28] MEDS ORDERED: AMINO ACID IV SCH (22:00)
[2021-09-28] MEDS ORDERED: DEXTROSE IV SCH (22:00)
[2021-09-28] MEDS ORDERED: [UNRECOGNIZED DRUG - OTHER] IV SCH (22:00)
[2021-09-28 23:09] VITALS: BP 110/43
[2021-09-29] MEDS: PIPERACILLIN/TAZOBACTAM 3.375 GM in IV NORMAL SALINE 50ML 50 ML IV SCH ×4 (00:49→17:08)
[2021-09-29 03:09] VITALS: BP 119/50
[2021-09-29] MEDS: INSULIN LISPRO 300 UNITS/3 ML VIAL. SQ SCH ×4 (05:55→18:00)
[2021-09-29 07:00] VITALS: BP 98/35
[2021-09-29 07:02] LABS: CALCIUM 8.4 mg/dL (8.5-10.1); CREATININE 0.6 mg/dL (0.6-1.0); GFR 99.1; MAGNESIUM 2.1 mg/dL (1.8-2.4); PHOSPHORUS 3.6 mg/dL (2.6-4.7); POTASSIUM 4.1 mmol/L (3.5-5.1)
[2021-09-29] MEDS: PANTOPRAZOLE 40 MG TABLET.DR. PO SCH (07:30)
[2021-09-29] MEDS: hydrALAZINE 25 MG TABLET PO SCH (08:32)
[2021-09-29] MEDS: hydroCHLOROthiazide 12.5 MG CAPSULE PO SCH (08:32)
[2021-09-29] MEDS: LISINOPRIL 20 MG TABLET PO SCH (08:33)
[2021-09-29] MEDS: ASPIRIN CHEWABLE 81 MG TABLET. PO SCH (08:35)
--- NOTE | 2021-09-29 09:31 | PDOC ---
[facility] [facility] PROGRESS NOTE Date of Service DOS: DATE: 09/29/21 TIME: 09:30 Chief Complaint Chief Complaint Anemia secondary to acute postoperative blood loss Rectovaginal fistula and Acute abdominal pain. 09/22: Status post bilateral ureteral stent placement laparoscopic converted to open lysis of adhesions Esparza's procedure and small bowel resection left quadrant colostomy Microcytic anemia - not DEWAYNE. Will type and screen post-op tobacco use disorder Dm2, insulin Hypokalemia - due to poor po Severe protein calorie malnutrition - l HLD - HTN - General surgery consult, talent sourcing specialist consult IV abx History of Present Illness History of Present Illness 09/29 Patient evaluated examined at bedside. Resting in bed. Continues to need Dilaudid WEBLOGIC ADMINISTRATOR. Still on IV antibiotics. Surgical team following. Continue PT OT diet as tolerated. Will need placement after discharge. 09/28, pain and nausea cont current OOB to chair as able 09/27/2021 No acute events overnight. Patient seen examined bedside. Saturating 95% on 2 L nasal cannula. AF and VSS. Pending hemoglobin levels. Able to sit on the side of the bed. She still needs help transitioning to recliner with physical therapy. Tolerating clears. Diet per surgery. Still on WEBLOGIC ADMINISTRATOR Dilaudid and will attempt to transition to p.o. pain medications. 09/26/2021 No acute events overnight. Patient seen examined bedside. Status post 1 unit PRBC transfusion. Hemoglobin is 7.1 today. We will repeat hemoglobin levels tomorrow. Patient tolerating NG tube clamped. Will DC today and increase activity. Patient's chart, labs, images were reviewed and discussed with RN 09/25/2021 No acute events overnight. Patient seen examined bedside. Resting comfortably. Postop day 3. Hemoglobin of 5.7. Pending 1 unit PRBC transfusion. Pending chest x-ray. Patient's chart, labs, images were reviewed and discussed with RN 09/24/21 No acute events overnight. Postoperative day 2. AF and VSS. Saturating 96% on 2 L nasal cannula. Ostomy is functioning well. Pain is well controlled. Patient is resting comfortably in bed. Patient's chart, labs, images were reviewed and discussed with RN 09/23: Transferred to ICU for supportive care postoperatively. K5.5, Hb 7.6, blood pressure low 80/50. Left hip pain, she thinks is positional. Bicarb, albumin, and levophed ordered. 09/22: To OR: Status post bilateral ureteral stent placement laparoscopic converted to open lysis of adhesions Esparza's procedure and small bowel resection left quadrant colostomy 09/21: No acute events overnight. Patient seen examined bedside. Still receiving IV TPN. AF and VSS. Coordination for OR on Monday with urology and gynecology and general surgery for perforated diverticulitis and colovaginal fistula. 09/20: Patient seen and examined at bedside this morning sitting upright in NAD. Patient receiving TPN. Plan for surgery monday, waiting on [place] to see her today 09/19: Gen Surg plans sigmoid colectomy, with temporary ileostomy. Vitals/I&O Vitals/I&O: Vital Signs Date Time Temp Pulse Resp B/P (MAP) Pulse Ox O2 Delivery O2 Flow Rate FiO2 09/29/21 07:00 98.4 63 18 98/35 (56) 95 Nasal Cannula 2.0 98.4 I & O 09/28/21 09/28/21 09/29/21 15:00 23:00 07:00 Intake Total 240 ml 60 ml Output Total 1350 ml Balance 240 ml -1290 ml Physical Exam General: Alert, Oriented X3, Cooperative, mild distress Heart: Regular rate, Normal S1, Normal S2, No murmurs Lungs: Clear Abdomen: Soft, Other Extremities: No cyanosis, No edema, Normal pulses Skin: No significant lesion Labs Labs: Laboratory Tests Test 09/28/21 12:16 09/28/21 17:47 09/29/21 00:26 09/29/21 05:53 Glucose (Fingerstick) 127 mg/dL (70-99) 111 mg/dL (70-99) 138 mg/dL (70-99) 131 mg/dL (70-99) Test 09/29/21 06:00 Sodium Level 136 mmol/L (136-145) Potassium Level 4.1 mmol/L (3.5-5.1) Chloride Level 100 mmol/L (98-107) Carbon Dioxide Level 29 mmol/L (21-32) Anion Gap 7 (6-14) Blood Urea Nitrogen 17 mg/dL (7-20) Creatinine 0.6 mg/dL (0.6-1.0) Estimated GFR (Cockcroft-Gault) 99.1 Glucose Level 111 mg/dL (70-99) Calcium Level 8.4 mg/dL (8.5-10.1) Phosphorus Level 3.6 mg/dL (2.6-4.7) Magnesium Level 2.1 mg/dL (1.8-2.4) Comment Review of Relevant I have reviewed the following items qasim (where applicable) has been applied. Medications: Current Medications Medications (Trade) Dose Ordered Sig/Gael Route PRN Reason Start Time Stop Time Status Last Admin Dose Admin Pantoprazole Sodium (Protonix) 40 mg DAILYAC PO 09/29/21 07:30 09/29/21 07:30 Sodium Chloride 10 meq/Potassium Acetate 20 meq/ Potassium Phosphate 15 mmol/ Magnesium Sulfate 14 meq/ Multivitamins 10 ml/Zinc/Copper/ Manganese/ Selenium 1 ml/ Total Parenteral Nutrition/Amino Acids/Dextrose/ Fat Emulsion Intravenous 1,800 ml @ 75 mls/hr TPN CONT IV 09/28/21 22:00 09/29/21 21:59 09/28/21 22:13 Justifications for Admission Other Justification Perforated diverticulitis VERONICA MUÑIZ MD Sep 29, 2021 09:31
--- NOTE | 2021-09-29 09:46 | PDOC ---
Date of Service: DATE: 09/29/21 TIME: 09:42 Subjective: Subjective: Not doing too good, thought she wouldn't have as much rouble with pain. Hurts to cough. Says eating regular diet, ostomy functioning. Got out of bed yesterday. Objective: Vital Signs: Vital Signs Date Time Temp Pulse Resp B/P (MAP) Pulse Ox O2 Delivery O2 Flow Rate FiO2 09/29/21 07:00 98.4 63 18 98/35 (56) 95 Nasal Cannula 2.0 98.4 Labs: Laboratory Tests Test 09/28/21 12:16 09/28/21 17:47 09/29/21 00:26 09/29/21 05:53 Glucose (Fingerstick) 127 mg/dL 111 mg/dL 138 mg/dL 131 mg/dL Test 09/29/21 06:00 Sodium Level 136 mmol/L Potassium Level 4.1 mmol/L Chloride Level 100 mmol/L Carbon Dioxide Level 29 mmol/L Anion Gap 7 Blood Urea Nitrogen 17 mg/dL Creatinine 0.6 mg/dL Estimated GFR (Cockcroft-Gault) 99.1 Glucose Level 111 mg/dL Calcium Level 8.4 mg/dL Phosphorus Level 3.6 mg/dL Magnesium Level 2.1 mg/dL PE: GEN: NAD LUNGS: NC 2L, clearer today HEART: RRR ABD: soft, tender, ostomy w/ liquid brown stool NEURO/PSYCH: A & O 3, depressed A/P: S/p resection/ostomy (perf diverticulitis, fistulas) DEWAYNE -- Eating, ostomy functioning. Provided encouragement. Justicifation of Admission Dx: Justifications for Admission: Justification of Admission Dx: Yes Sepsis: Infection ALEXSANDER TAFOYA Sep 29, 2021 09:46
[2021-09-29 11:00] VITALS: BP 109/39
[2021-09-29] MEDS: HYDROmorphone 12mg/30ml PCA 30 ML IV PRN (12:58)
[2021-09-29] MEDS: TPN PER PHARMACY MC PRN (14:20)
--- NOTE | 2021-09-29 14:23 | NUR ---
Pharmacy TPN Dosing Note S: SUZAN CATES is a 70 year old F Currently receiving Central Continuous TPN started 09/19/21 B:Pertinent PMH: rectovaginal fistula, NPO Height: 5 feet, 5 inches Weight: 58.1 kg Current diet: Clears LABS: Sodium: 136 Potassium: 4.1 Chloride: 100 Calcium: 8.4 Corrected Calcium: 10.40 Magnesium: 2.1 CO2: 29 SCr: 0.9 Glucose: 105 Albumin: 1.5 AST: 9 ALT: 7 TPN FORMULA: TPN TYPE: Central Continuous AMINO ACIDS: 65 gm DEXTROSE: 230 gm LIPIDS: 30 gm SODIUM CHLORIDE: 10 mEq SODIUM ACETATE: - mEq SODIUM PHOSPHATE: - mmol POTASSIUM CHLORIDE: - mEq POTASSIUM ACETATE: 20 mEq POTASSIUM PHOSPHATE: 15 mmol MAGNESIUM: 14 mEq CALCIUM: - mEq INSULIN: - units MULTIPLE VITAMIN: 10 ml TRACE ELEMENTS: 1 ml(s) TPN PLAN: CONT TPN AT 75 ML/HR. TOLERATED FEW BITES TODAY. R: Continue TPN Will monitor electrolytes, glucose, and tolerance to TPN. SUDHIR MARCELO [facility], 09/29/21 [id number]
--- NOTE | 2021-09-29 14:42 | PDOC ---
SURGICAL PROGRESS NOTE DATE: 09/29/21 TIME: 14:40 Subjective Pt reports some improvement, miguel some PO, wants to get up more Vital Signs Vital Signs Date Time Temp Pulse Resp B/P (MAP) Pulse Ox O2 Delivery O2 Flow Rate FiO2 09/29/21 13:36 98 Nasal Cannula 2.0 09/29/21 11:00 98.2 61 18 109/39 (62) 98.2 I&O Intake and Output 09/29/21 07:00 Intake Total 300 ml Output Total 1350 ml Balance -1050 ml Intake Oral 300 ml Output Urine Total 1350 ml PATIENT HAS A HERNANDEZ: Yes (maintain hernandez given fistula) Labs Laboratory Tests Test 09/27/21 18:37 09/28/21 00:01 09/28/21 05:56 09/28/21 06:00 Glucose (Fingerstick) 113 mg/dL (70-99) 144 mg/dL (70-99) 117 mg/dL (70-99) Sodium Level 147 mmol/L (136-145) Potassium Level 3.5 mmol/L (3.5-5.1) Chloride Level 105 mmol/L (98-107) Carbon Dioxide Level 25 mmol/L (21-32) Anion Gap 17 (6-14) Blood Urea Nitrogen 15 mg/dL (7-20) Creatinine 0.9 mg/dL (0.6-1.0) Estimated GFR (Cockcroft-Gault) 62.1 Glucose Level 105 mg/dL (70-99) Calcium Level 7.5 mg/dL (8.5-10.1) Phosphorus Level 3.4 mg/dL (2.6-4.7) Magnesium Level 1.9 mg/dL (1.8-2.4) Test 09/28/21 12:16 09/28/21 17:47 09/29/21 00:26 09/29/21 05:53 Glucose (Fingerstick) 127 mg/dL (70-99) 111 mg/dL (70-99) 138 mg/dL (70-99) 131 mg/dL (70-99) Test 09/29/21 06:00 09/29/21 11:56 Sodium Level 136 mmol/L (136-145) Potassium Level 4.1 mmol/L (3.5-5.1) Chloride Level 100 mmol/L (98-107) Carbon Dioxide Level 29 mmol/L (21-32) Anion Gap 7 (6-14) Blood Urea Nitrogen 17 mg/dL (7-20) Creatinine 0.6 mg/dL (0.6-1.0) Estimated GFR (Cockcroft-Gault) 99.1 Glucose Level 111 mg/dL (70-99) Calcium Level 8.4 mg/dL (8.5-10.1) Phosphorus Level 3.6 mg/dL (2.6-4.7) Magnesium Level 2.1 mg/dL (1.8-2.4) Glucose (Fingerstick) 118 mg/dL (70-99) Laboratory Tests Test 09/28/21 17:47 09/29/21 00:26 09/29/21 05:53 09/29/21 06:00 Glucose (Fingerstick) 111 mg/dL (70-99) 138 mg/dL (70-99) 131 mg/dL (70-99) Sodium Level 136 mmol/L (136-145) Potassium Level 4.1 mmol/L (3.5-5.1) Chloride Level 100 mmol/L (98-107) Carbon Dioxide Level 29 mmol/L (21-32) Anion Gap 7 (6-14) Blood Urea Nitrogen 17 mg/dL (7-20) Creatinine 0.6 mg/dL (0.6-1.0) Estimated GFR (Cockcroft-Gault) 99.1 Glucose Level 111 mg/dL (70-99) Calcium Level 8.4 mg/dL (8.5-10.1) Phosphorus Level 3.6 mg/dL (2.6-4.7) Magnesium Level 2.1 mg/dL (1.8-2.4) Test 09/29/21 11:56 Glucose (Fingerstick) 118 mg/dL (70-99) Assessment/Plan s/p sigmoid OOB ADAT work towards more PO pain meds away from IV d/c planning. Justicifation of Admission Dx: Justifications for Admission: Justification of Admission Dx: Yes Sepsis: Infection ARLETTE WAY MD Sep 29, 2021 14:41
[2021-09-29 15:00] VITALS: BP 128/45
[2021-09-29] MEDS: MAG HYDROX/ALUMINUM HYD/SIMETH 30 ML ORAL.SUSP PO PRN (15:27)
--- NOTE | 2021-09-29 16:52 | NUR ---
Ostomy care Ostomy bag intact with good seal
[2021-09-29] MEDS: IV NORMAL SALINE 1000ML BAG 1,000 ML IV SCH (17:05)
[2021-09-29 19:45] VITALS: BP 97/32
[2021-09-29] MEDS: DOCUSATE SODIUM 100 MG CAPSULE. PO SCH (21:15)
[2021-09-29] MEDS: ENOXAPARIN 40 MG/0.4 ML SYRINGE. SQ SCH (21:15)
[2021-09-29] MEDS: ATORVASTATIN CALCIUM 20 MG TABLET PO SCH (21:15)
[2021-09-29] MEDS ORDERED: [UNRECOGNIZED DRUG - OTHER] IV SCH (22:00)
[2021-09-29] MEDS ORDERED: AMINO ACID IV SCH (22:00)
[2021-09-29] MEDS ORDERED: DEXTROSE IV SCH (22:00)
[2021-09-29] MEDS ORDERED: TOTAL PARENTERAL NUTRITION IV SCH (22:00)
[2021-09-29 23:09] VITALS: BP 91/71
[2021-09-30] MEDS: PIPERACILLIN/TAZOBACTAM 3.375 GM in IV NORMAL SALINE 50ML 50 ML IV SCH ×4 (00:15→19:30)
[2021-09-30 03:20] VITALS: BP 111/48
[2021-09-30] MEDS: INSULIN LISPRO 300 UNITS/3 ML VIAL. SQ SCH ×3 (06:00→16:00)
[2021-09-30 07:00] VITALS: BP 128/50
[2021-09-30] MEDS: ASPIRIN CHEWABLE 81 MG TABLET. PO SCH (08:58)
[2021-09-30] MEDS: hydroCHLOROthiazide 12.5 MG CAPSULE PO SCH (08:58)
[2021-09-30] MEDS: PANTOPRAZOLE 40 MG TABLET.DR. PO SCH (08:58)
[2021-09-30] MEDS: hydrALAZINE 25 MG TABLET PO SCH ×2 (08:59→09:00)
[2021-09-30] MEDS: LISINOPRIL 20 MG TABLET PO SCH (08:59)
--- NOTE | 2021-09-30 10:33 | PDOC ---
Date of Service: DATE: 09/30/21 TIME: 10:30 Subjective: Subjective: Had intense urge to urinate x2 overnight, says bladder scanning done and indicates feels better after Shea emptied? Daisy like a bladder infection for awhile but not now. Tolerating diet. Feels short of breath. Wants to go home. Objective: Vital Signs: Vital Signs Date Time Temp Pulse Resp B/P (MAP) Pulse Ox O2 Delivery O2 Flow Rate FiO2 09/30/21 09:00 61 128/50 09/30/21 07:00 98.4 18 96 Nasal Cannula 2.0 98.4 Labs: Laboratory Tests Test 09/29/21 11:56 09/29/21 18:19 09/30/21 00:05 09/30/21 06:23 Glucose (Fingerstick) 118 mg/dL 135 mg/dL 127 mg/dL 134 mg/dL PE: GEN: NAD LUNGS: moving around in bed, breathless - actually seems to be moving around a bit better HEART: RRR ABD:soft, non-distended, ostomy NEURO/PSYCH: A & O 3, depressed A/P: S/p resection/ostomy (perf diverticulitis, fistulas) DEWAYNE -- Supportive care GI-briseno. Justicifation of Admission Dx: Justifications for Admission: Justification of Admission Dx: Yes Sepsis: Infection ALEXSANDER TAFOYA Sep 30, 2021 10:33
[2021-09-30 11:00] VITALS: BP 130/58
[2021-09-30] MEDS: TPN PER PHARMACY MC PRN (11:25)
[2021-09-30] MEDS: HYDROmorphone 12mg/30ml PCA 30 ML IV PRN (11:49)
--- NOTE | 2021-09-30 11:53 | PDOC ---
[facility] PROGRESS NOTE Date of Service DOS: DATE: 09/30/21 TIME: 11:52 Chief Complaint Chief Complaint Anemia secondary to acute postoperative blood loss Rectovaginal fistula and Acute abdominal pain. 09/22: Status post bilateral ureteral stent placement laparoscopic converted to open lysis of adhesions Esparza's procedure and small bowel resection left quadrant colostomy Microcytic anemia - not DEWAYNE. Will type and screen post-op tobacco use disorder Dm2, insulin Hypokalemia - due to poor po Severe protein calorie malnutrition - l HLD - HTN - General surgery consult, press clippings cutter and paster consult IV abx History of Present Illness History of Present Illness 09/30, has burning pain, will try tucks pads to lazaro area. will check UA. she reports she was not taking hydralazine or HCTZ, will stop cont TPN, almost no po intake, follow nutirtion, still havign a lot of pain, on TURN OPERATOR, wean as able \ 09/29 Patient evaluated examined at bedside. Resting in bed. Continues to need Dilaudid TURN OPERATOR. Still on IV antibiotics. Surgical team following. Continue PT OT diet as tolerated. Will need placement after discharge. 09/28, pain and nausea cont current OOB to chair as able 09/27/2021 No acute events overnight. Patient seen examined bedside. Saturating 95% on 2 L nasal cannula. AF and VSS. Pending hemoglobin levels. Able to sit on the side of the bed. She still needs help transitioning to recliner with physical therapy. Tolerating clears. Diet per surgery. Still on TURN OPERATOR Dilaudid and will attempt to transition to p.o. pain medications. 09/26/2021 No acute events overnight. Patient seen examined bedside. Status post 1 unit PRBC transfusion. Hemoglobin is 7.1 today. We will repeat hemoglobin levels tomorrow. Patient tolerating NG tube clamped. Will DC today and increase activity. Patient's chart, labs, images were reviewed and discussed with RN 09/25/2021 No acute events overnight. Patient seen examined bedside. Resting comfortably. Postop day 3. Hemoglobin of 5.7. Pending 1 unit PRBC transfusion. Pending chest x-ray. Patient's chart, labs, images were reviewed and discussed with RN 09/24/21 No acute events overnight. Postoperative day 2. AF and VSS. Saturating 96% on 2 L nasal cannula. Ostomy is functioning well. Pain is well controlled. Patient is resting comfortably in bed. Patient's chart, labs, images were reviewed and discussed with RN 09/23: Transferred to ICU for supportive care postoperatively. K5.5, Hb 7.6, blood pressure low 80/50. Left hip pain, she thinks is positional. Bicarb, albumin, and levophed ordered. 09/22: To OR: Status post bilateral ureteral stent placement laparoscopic converted to open lysis of adhesions Esparza's procedure and small bowel resection left quadrant colostomy 09/21: No acute events overnight. Patient seen examined bedside. Still receiving IV TPN. AF and VSS. Coordination for OR on Monday with urology and gynecology and general surgery for perforated diverticulitis and colovaginal fistula. 09/20: Patient seen and examined at bedside this morning sitting upright in NAD. Patient receiving TPN. Plan for surgery monday, waiting on Noé to see her today 09/19: Gen Surg plans sigmoid colectomy, with temporary ileostomy. Vitals/I&O Vitals/I&O: Vital Signs Date Time Temp Pulse Resp B/P (MAP) Pulse Ox O2 Delivery O2 Flow Rate FiO2 09/30/21 11:49 97 Nasal Cannula 2.0 09/30/21 11:00 97.8 66 16 130/58 (82) 97.8 I & O 09/29/21 09/29/21 09/30/21 15:00 23:00 07:00 Intake Total 147 ml 50 ml 50 ml Output Total 675 ml 900 ml Balance 147 ml -625 ml -850 ml Physical Exam General: Alert, Oriented X3, Cooperative, mild distress Heart: Regular rate, Normal S1, Normal S2, No murmurs Lungs: Clear Abdomen: Soft, Other Extremities: No cyanosis, No edema, Normal pulses Skin: No significant lesion Labs Labs: Laboratory Tests Test 09/29/21 11:56 09/29/21 18:19 09/30/21 00:05 09/30/21 06:23 Glucose (Fingerstick) 118 mg/dL (70-99) 135 mg/dL (70-99) 127 mg/dL (70-99) 134 mg/dL (70-99) Review of Systems Review of Systems: pain, nausea, weakness, still ill Comment Review of Relevant I have reviewed the following items qasmi (where applicable) has been applied. Medications: Current Medications Medications (Trade) Dose Ordered Sig/Gael Route PRN Reason Start Time Stop Time Status Last Admin Dose Admin Sodium Chloride 10 meq/Potassium Acetate 20 meq/ Potassium Phosphate 15 mmol/ Magnesium Sulfate 14 meq/ Multivitamins 10 ml/Zinc/Copper/ Manganese/ Selenium 1 ml/ Total Parenteral Nutrition/Amino Acids/Dextrose/ Fat Emulsion Intravenous 1,800 ml @ 75 mls/hr TPN CONT IV 09/29/21 22:00 09/30/21 21:59 09/29/21 22:00 Docusate Sodium (Colace) 100 mg QHS PO 09/29/21 21:00 09/29/21 21:15 Justifications for Admission Other Justification Perforated diverticulitis CHRIS ROLLE MD Sep 30, 2021 11:53
[2021-09-30 12:57] LABS: BILIRUBIN,URINE NEGATIVE (NEG); CLARITY,URINE CLOUDY; COLOR,URINE YELLOW
[2021-09-30 12:58] LABS: BACTERIA,URINE FEW /HPF (0-FEW); NITRITE,URINE NEGATIVE (NEG); PH,URINE 6.5 (<5.0-8.0); PROTEIN,URINE NEGATIVE (NEG-TRACE); UROBILINOGEN,URINE 0.2 mg/dL (0.2 mg/dL); WBC,URINE TNTC /HPF (0-4); YEAST,URINE PRESENT /HPF
--- NOTE | 2021-09-30 14:12 | PDOC ---
SURGICAL PROGRESS NOTE DATE: 09/30/21 TIME: 14:10 Subjective Pt feels stronger, miguel some min PO, c/o irritation rectal and vaginal Vital Signs Vital Signs Date Time Temp Pulse Resp B/P (MAP) Pulse Ox O2 Delivery O2 Flow Rate FiO2 09/30/21 11:49 97 Nasal Cannula 2.0 09/30/21 11:00 97.8 66 16 130/58 (82) 97.8 I&O Intake and Output 09/30/21 07:00 Intake Total 247 ml Output Total 1575 ml Balance -1328 ml Intake Oral 220 ml IV Total 27 ml Output Urine Total 1500 ml Urine/Stool Mix 75 ml General: Alert, Oriented X3, Cooperative, No acute distress Abdomen: Soft, No tenderness, Other (ostomy fxn) Labs Laboratory Tests Test 09/28/21 17:47 09/29/21 00:26 09/29/21 05:53 09/29/21 06:00 Glucose (Fingerstick) 111 mg/dL (70-99) 138 mg/dL (70-99) 131 mg/dL (70-99) Sodium Level 136 mmol/L (136-145) Potassium Level 4.1 mmol/L (3.5-5.1) Chloride Level 100 mmol/L (98-107) Carbon Dioxide Level 29 mmol/L (21-32) Anion Gap 7 (6-14) Blood Urea Nitrogen 17 mg/dL (7-20) Creatinine 0.6 mg/dL (0.6-1.0) Estimated GFR (Cockcroft-Gault) 99.1 Glucose Level 111 mg/dL (70-99) Calcium Level 8.4 mg/dL (8.5-10.1) Phosphorus Level 3.6 mg/dL (2.6-4.7) Magnesium Level 2.1 mg/dL (1.8-2.4) Test 09/29/21 11:56 09/29/21 18:19 09/30/21 00:05 09/30/21 06:23 Glucose (Fingerstick) 118 mg/dL (70-99) 135 mg/dL (70-99) 127 mg/dL (70-99) 134 mg/dL (70-99) Test 09/30/21 12:05 Urine Collection Type Unknown Urine Color Yellow Urine Clarity Cloudy Urine pH 6.5 (<5.0-8.0) Urine Specific [place] 1.015 (1.000-1.030) Urine Protein Negative mg/dL (NEG-TRACE) Urine Glucose (UA) Negative mg/dL (NEG) Urine Ketones (Stick) Negative mg/dL (NEG) Urine Blood Moderate (NEG) Urine Nitrite Negative (NEG) Urine Bilirubin Negative (NEG) Urine Urobilinogen Dipstick 0.2 mg/dL (0.2 mg/dL) Urine Leukocyte Esterase Large (NEG) Urine RBC 6-10 /HPF (0-2) Urine WBC Tntc /HPF (0-4) Urine Bacteria Few /HPF (0-FEW) Urine Yeast Present /HPF Laboratory Tests Test 09/29/21 18:19 09/30/21 00:05 09/30/21 06:23 09/30/21 12:05 Glucose (Fingerstick) 135 mg/dL (70-99) 127 mg/dL (70-99) 134 mg/dL (70-99) Urine Collection Type Unknown Urine Color Yellow Urine Clarity Cloudy Urine pH 6.5 (<5.0-8.0) Urine Specific [place] 1.015 (1.000-1.030) Urine Protein Negative mg/dL (NEG-TRACE) Urine Glucose (UA) Negative mg/dL (NEG) Urine Ketones (Stick) Negative mg/dL (NEG) Urine Blood Moderate (NEG) Urine Nitrite Negative (NEG) Urine Bilirubin Negative (NEG) Urine Urobilinogen Dipstick 0.2 mg/dL (0.2 mg/dL) Urine Leukocyte Esterase Large (NEG) Urine RBC 6-10 /HPF (0-2) Urine WBC Tntc /HPF (0-4) Urine Bacteria Few /HPF (0-FEW) Urine Yeast Present /HPF Problem List s/p toth's will plan d/c hernandez on 10/02 agree with perineal care cont ADAT, will wean TPN 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 Justicifation of Admission Dx: Justifications for Admission: Justification of Admission Dx: Yes Sepsis: Infection ARLETTE WAY MD Sep 30, 2021 14:12
[2021-09-30 15:00] VITALS: BP 116/59
[2021-09-30] MEDS: DOCUSATE SODIUM 100 MG CAPSULE. PO SCH ×2 (15:23→21:00)
[2021-09-30] MEDS: MORPHINE SULFATE 2 MG/ML INJ. IVP PRN ×2 (16:08→23:05)
--- NOTE | 2021-09-30 17:02 | NUR ---
Wound Care: Today we did ostomy teaching for this patient. Patient did very well and asked questions and concerns, we will enroll this patient with [employer] for supplies. Today the appliance utilized was a one piece convex, there is some skin breakdown to the lazaro-wound, stoma powder used. A two inch ring also applied, and there is some lazaro-stomal separation noted. Dr. Umanzor notified. I will check on patient again tomorrow. Patient given educational handouts and reading material as well as good resources regarding new ostomy. Patient does have yeast rash to coccyx/buttocks/vaginal area, RN notified and I assisted patient with cooling chux to areas. Bed lowered and call light in reach.
[2021-09-30] MEDS: IV NORMAL SALINE 1000ML BAG 1,000 ML IV SCH (17:45)
[2021-09-30] MEDS: MICAFUNGIN 100 MG in IV DEXTROSE 5% 100ML 100 ML IV SCH (18:26)
[2021-09-30 19:00] VITALS: BP 109/40
[2021-09-30] MEDS: ATORVASTATIN CALCIUM 20 MG TABLET PO SCH (21:38)
[2021-09-30] MEDS: ENOXAPARIN 40 MG/0.4 ML SYRINGE. SQ SCH (21:39)
[2021-09-30] MEDS: NYSTATIN TOPICAL POWDER 15GM BOTTLE. TP SCH (21:41)
[2021-09-30] MEDS ORDERED: DEXTROSE IV SCH (22:00)
[2021-09-30] MEDS ORDERED: AMINO ACID IV SCH (22:00)
[2021-09-30] MEDS ORDERED: [UNRECOGNIZED DRUG - OTHER] IV SCH (22:00)
[2021-09-30] MEDS ORDERED: TOTAL PARENTERAL NUTRITION IV SCH (22:00)
[2021-09-30] MEDS: oxyCODONE/APAP 5/325 1 TAB TABLET PO PRN (22:55)
[2021-09-30 23:01] VITALS: BP 139/53
[2021-10-01] VITALS (11 sets, daily range): BP systolic 107–145; BP diastolic 43–64
[2021-10-01] MEDS: PIPERACILLIN/TAZOBACTAM 3.375 GM in IV NORMAL SALINE 50ML 50 ML IV SCH ×5 (01:00→23:51)
[2021-10-01] MEDS: oxyCODONE/APAP 5/325 1 TAB TABLET PO PRN ×3 (01:05→21:02)
[2021-10-01 05:37] LABS: BASO # 0.1 x10^3/uL (0.0-0.2); BASO % 1 % (0-3); EOS # 0.4 x10^3/uL (0.0-0.7); EOS % 4 % (0-3); LYMPH # 1.3 x10^3/uL (1.0-4.8); LYMPH % 13 % (24-48); MEAN CORPUSCULAR HEMOGLOBIN 24 pg (25-35); MEAN CORPUSCULAR HGB CONC 32 g/dL (31-37); MEAN CORPUSCULAR VOLUME 75 fL (79-100); MONO # 0.8 x10^3/uL (0.0-1.1); MONO % 8 % (0-9); NEUT # 7.7 x10^3/uL (1.8-7.7); NEUT % 75 % (31-73); PLATELET COUNT 464 x10^3/uL (140-400); RED BLOOD COUNT 2.68 x10^6/uL (3.50-5.40); RED CELL DISTRIBUTION WIDTH 18.6 % (11.5-14.5); WHITE BLOOD COUNT 10.3 x10^3/uL (4.0-11.0)
[2021-10-01 05:44] LABS: HEMOGLOBIN 6.4 g/dL (12.0-15.5)
[2021-10-01 05:55] LABS: ALBUMIN 1.6 g/dL (3.4-5.0); ALBUMIN/GLOBULIN RATIO 0.4 (1.0-1.7); CALCIUM 8.6 mg/dL (8.5-10.1); CREATININE 0.8 mg/dL (0.6-1.0); GFR 71.1; POTASSIUM 4.4 mmol/L (3.5-5.1); TOTAL BILIRUBIN 0.2 mg/dL (0.2-1.0); TOTAL PROTEIN 5.6 g/dL (6.4-8.2)
--- NOTE | 2021-10-01 09:26 | PDOC ---
Date of Service: DATE: 10/01/21 TIME: 09:21 Subjective: Subjective: Rough night, frequent urge to urinate (has Shea). Eating a little. No longer on DANCING INSTRUCTOR - taking 1/2 Percocet. C/o rectal/vaginal irritation - "on fire." Objective: Vital Signs: Vital Signs Date Time Temp Pulse Resp B/P (MAP) Pulse Ox O2 Delivery O2 Flow Rate FiO2 10/01/21 07:15 98.0 60 18 127/43 (71) 95 Room Air 98.0 09/30/21 18:13 2.0 Labs: Laboratory Tests Test 09/30/21 12:05 10/01/21 05:15 Urine Collection Type Unknown Urine Color Yellow Urine Clarity Cloudy Urine pH 6.5 Urine Specific [place] 1.015 Urine Protein Negative mg/dL Urine Glucose (UA) Negative mg/dL Urine Ketones (Stick) Negative mg/dL Urine Blood Moderate Urine Nitrite Negative Urine Bilirubin Negative Urine Urobilinogen Dipstick 0.2 mg/dL Urine Leukocyte Esterase Large Urine RBC 6-10 /HPF Urine WBC Tntc /HPF Urine Bacteria Few /HPF Urine Yeast Present /HPF White Blood Count 10.3 x10^3/uL Red Blood Count 2.68 x10^6/uL Hemoglobin 6.4 g/dL Hematocrit 20.0 % Mean Corpuscular Volume 75 fL Mean Corpuscular Hemoglobin 24 pg Mean Corpuscular Hemoglobin Concent 32 g/dL Red Cell Distribution Width 18.6 % Platelet Count 464 x10^3/uL Neutrophils (%) (Auto) 75 % Lymphocytes (%) (Auto) 13 % Monocytes (%) (Auto) 8 % Eosinophils (%) (Auto) 4 % Basophils (%) (Auto) 1 % Neutrophils # (Auto) 7.7 x10^3/uL Lymphocytes # (Auto) 1.3 x10^3/uL Monocytes # (Auto) 0.8 x10^3/uL Eosinophils # (Auto) 0.4 x10^3/uL Basophils # (Auto) 0.1 x10^3/uL Sodium Level 141 mmol/L Potassium Level 4.4 mmol/L Chloride Level 107 mmol/L Carbon Dioxide Level 28 mmol/L Anion Gap 6 Blood Urea Nitrogen 15 mg/dL Creatinine 0.8 mg/dL Estimated GFR (Cockcroft-Gault) 71.1 BUN/Creatinine Ratio 19 Glucose Level 91 mg/dL Calcium Level 8.6 mg/dL Total Bilirubin 0.2 mg/dL Aspartate Amino Transf (AST/SGOT) 27 U/L Alanine Aminotransferase (ALT/SGPT) 51 U/L Alkaline Phosphatase 141 U/L Total Protein 5.6 g/dL Albumin 1.6 g/dL Albumin/Globulin Ratio 0.4 PE: GEN: NAD LUNGS: less tachypneic today - seems more comfortable HEART: RRR ABD: soft, liquid stool in ostomy bag NEURO/PSYCH: A & O 3, depressed A/P: S/p resection/ostomy (perf diverticulitis, fistulas) DEWAYNE - Hgb drop w/o obvious bleeding, transfusion ordered -- Urinary complaints today. Eating some, ostomy functioning, weaning down on pain meds. Justicifation of Admission Dx: Justifications for Admission: Justification of Admission Dx: Yes Sepsis: Infection ALEXSANDER TAFOYA Oct 01, 2021 09:26
--- NOTE | 2021-10-01 10:47 | NUR ---
Wound Care: Checked on patient again today, bag remains with good seal. Patient buttocks/coccyx/vaginal areas still excoriated and causing pain, Nystatin, A&D ointment, and cooling chux applied for patient. Will see patient again on Monday for reassessment. Call light in reach and bed lowered.
[2021-10-01] MEDS: MORPHINE SULFATE 2 MG/ML INJ. IVP PRN ×2 (11:13→13:03)
[2021-10-01] MEDS: ASPIRIN CHEWABLE 81 MG TABLET. PO SCH (11:13)
[2021-10-01] MEDS: DOCUSATE SODIUM 100 MG CAPSULE. PO SCH ×2 (11:13→21:00)
[2021-10-01] MEDS: PANTOPRAZOLE 40 MG TABLET.DR. PO SCH (11:13)
[2021-10-01] MEDS: LISINOPRIL 20 MG TABLET PO SCH (11:13)
[2021-10-01] MEDS: NYSTATIN TOPICAL POWDER 15GM BOTTLE. TP SCH ×2 (11:14→21:01)
--- NOTE | 2021-10-01 15:53 | PDOC ---
SURGICAL PROGRESS NOTE DATE: 10/01/21 TIME: 15:51 Subjective Pt miguel diet and having ostomy output, did have some issues with urinary retention while hernandez not working, now resolved. Main issue is perineal irr itation Vital Signs Vital Signs Date Time Temp Pulse Resp B/P (MAP) Pulse Ox O2 Delivery O2 Flow Rate FiO2 10/01/21 14:59 97.9 72 18 116/64 97.9 10/01/21 14:55 94 Room Air 10/01/21 13:03 2.0 I&O Intake and Output 10/01/21 07:00 Output Total 1750 ml Balance -1750 ml Output Urine Total 1750 ml # Voids 2 PATIENT HAS A HERNANDEZ: Yes (urologic concern secondary to associated surgery and fistula) General: Alert, Oriented X3, Cooperative, No acute distress Abdomen: Soft, No tenderness, Other (ostomy fxn) Labs Laboratory Tests Test 09/29/21 18:19 09/30/21 00:05 09/30/21 06:23 09/30/21 12:05 Glucose (Fingerstick) 135 mg/dL (70-99) 127 mg/dL (70-99) 134 mg/dL (70-99) Urine Collection Type Unknown Urine Color Yellow Urine Clarity Cloudy Urine pH 6.5 (<5.0-8.0) Urine Specific [place] 1.015 (1.000-1.030) Urine Protein Negative mg/dL (NEG-TRACE) Urine Glucose (UA) Negative mg/dL (NEG) Urine Ketones (Stick) Negative mg/dL (NEG) Urine Blood Moderate (NEG) Urine Nitrite Negative (NEG) Urine Bilirubin Negative (NEG) Urine Urobilinogen Dipstick 0.2 mg/dL (0.2 mg/dL) Urine Leukocyte Esterase Large (NEG) Urine RBC 6-10 /HPF (0-2) Urine WBC Tntc /HPF (0-4) Urine Bacteria Few /HPF (0-FEW) Urine Yeast Present /HPF Test 10/01/21 05:15 White Blood Count 10.3 x10^3/uL (4.0-11.0) Red Blood Count 2.68 x10^6/uL (3.50-5.40) Hemoglobin 6.4 g/dL (12.0-15.5) Hematocrit 20.0 % (36.0-47.0) Mean Corpuscular Volume 75 fL (79-100) Mean Corpuscular Hemoglobin 24 pg (25-35) Mean Corpuscular Hemoglobin Concent 32 g/dL (31-37) Red Cell Distribution Width 18.6 % (11.5-14.5) Platelet Count 464 x10^3/uL (140-400) Neutrophils (%) (Auto) 75 % (31-73) Lymphocytes (%) (Auto) 13 % (24-48) Monocytes (%) (Auto) 8 % (0-9) Eosinophils (%) (Auto) 4 % (0-3) Basophils (%) (Auto) 1 % (0-3) Neutrophils # (Auto) 7.7 x10^3/uL (1.8-7.7) Lymphocytes # (Auto) 1.3 x10^3/uL (1.0-4.8) Monocytes # (Auto) 0.8 x10^3/uL (0.0-1.1) Eosinophils # (Auto) 0.4 x10^3/uL (0.0-0.7) Basophils # (Auto) 0.1 x10^3/uL (0.0-0.2) Sodium Level 141 mmol/L (136-145) Potassium Level 4.4 mmol/L (3.5-5.1) Chloride Level 107 mmol/L (98-107) Carbon Dioxide Level 28 mmol/L (21-32) Anion Gap 6 (6-14) Blood Urea Nitrogen 15 mg/dL (7-20) Creatinine 0.8 mg/dL (0.6-1.0) Estimated GFR (Cockcroft-Gault) 71.1 BUN/Creatinine Ratio 19 (6-20) Glucose Level 91 mg/dL (70-99) Calcium Level 8.6 mg/dL (8.5-10.1) Total Bilirubin 0.2 mg/dL (0.2-1.0) Aspartate Amino Transf (AST/SGOT) 27 U/L (15-37) Alanine Aminotransferase (ALT/SGPT) 51 U/L (14-59) Alkaline Phosphatase 141 U/L (46-116) Total Protein 5.6 g/dL (6.4-8.2) Albumin 1.6 g/dL (3.4-5.0) Albumin/Globulin Ratio 0.4 (1.0-1.7) Laboratory Tests Test 10/01/21 05:15 White Blood Count 10.3 x10^3/uL (4.0-11.0) Red Blood Count 2.68 x10^6/uL (3.50-5.40) Hemoglobin 6.4 g/dL (12.0-15.5) Hematocrit 20.0 % (36.0-47.0) Mean Corpuscular Volume 75 fL (79-100) Mean Corpuscular Hemoglobin 24 pg (25-35) Mean Corpuscular Hemoglobin Concent 32 g/dL (31-37) Red Cell Distribution Width 18.6 % (11.5-14.5) Platelet Count 464 x10^3/uL (140-400) Neutrophils (%) (Auto) 75 % (31-73) Lymphocytes (%) (Auto) 13 % (24-48) Monocytes (%) (Auto) 8 % (0-9) Eosinophils (%) (Auto) 4 % (0-3) Basophils (%) (Auto) 1 % (0-3) Neutrophils # (Auto) 7.7 x10^3/uL (1.8-7.7) Lymphocytes # (Auto) 1.3 x10^3/uL (1.0-4.8) Monocytes # (Auto) 0.8 x10^3/uL (0.0-1.1) Eosinophils # (Auto) 0.4 x10^3/uL (0.0-0.7) Basophils # (Auto) 0.1 x10^3/uL (0.0-0.2) Sodium Level 141 mmol/L (136-145) Potassium Level 4.4 mmol/L (3.5-5.1) Chloride Level 107 mmol/L (98-107) Carbon Dioxide Level 28 mmol/L (21-32) Anion Gap 6 (6-14) Blood Urea Nitrogen 15 mg/dL (7-20) Creatinine 0.8 mg/dL (0.6-1.0) Estimated GFR (Cockcroft-Gault) 71.1 BUN/Creatinine Ratio 19 (6-20) Glucose Level 91 mg/dL (70-99) Calcium Level 8.6 mg/dL (8.5-10.1) Total Bilirubin 0.2 mg/dL (0.2-1.0) Aspartate Amino Transf (AST/SGOT) 27 U/L (15-37) Alanine Aminotransferase (ALT/SGPT) 51 U/L (14-59) Alkaline Phosphatase 141 U/L (46-116) Total Protein 5.6 g/dL (6.4-8.2) Albumin 1.6 g/dL (3.4-5.0) Albumin/Globulin Ratio 0.4 (1.0-1.7) Assessment/Plan s/p toth's OOB cont perineal wound care Justicifation of Admission Dx: Justifications for Admission: Justification of Admission Dx: Yes Sepsis: Infection ARLETTE WAY MD Oct 01, 2021 15:53
[2021-10-01] MEDS: INSULIN LISPRO 300 UNITS/3 ML VIAL. SQ SCH (16:00)
[2021-10-01] MEDS: MICAFUNGIN 100 MG in IV DEXTROSE 5% 100ML 100 ML IV SCH (17:06)
[2021-10-01] MEDS: IV NORMAL SALINE 1000ML BAG 1,000 ML IV SCH (17:45)
[2021-10-01] MEDS: ENOXAPARIN 40 MG/0.4 ML SYRINGE. SQ SCH (21:00)
[2021-10-01] MEDS: ATORVASTATIN CALCIUM 20 MG TABLET PO SCH (21:01)
[2021-10-01] MEDS: LACTOBACILLUS RHAMNOSUS GG 1 CAPSULE. PO SCH (21:02)
[2021-10-02] MEDS: MORPHINE SULFATE 2 MG/ML INJ. IVP PRN
[2021-10-02 03:07] VITALS: BP 124/55
[2021-10-02] MEDS: PIPERACILLIN/TAZOBACTAM 3.375 GM in IV NORMAL SALINE 50ML 50 ML IV SCH ×3 (05:23→18:14)
[2021-10-02] MEDS: oxyCODONE/APAP 5/325 1 TAB TABLET PO PRN ×3 (05:24→18:19)
[2021-10-02] MEDS: PANTOPRAZOLE 40 MG TABLET.DR. PO SCH (05:24)
[2021-10-02 07:00] VITALS: BP 110/72
[2021-10-02 09:04] LABS: HEMATOCRIT 25.6 % (36.0-47.0); HEMOGLOBIN 7.9 g/dL (12.0-15.5)
[2021-10-02] MEDS: DOCUSATE SODIUM 100 MG CAPSULE. PO SCH ×2 (10:12→21:15)
[2021-10-02] MEDS: LACTOBACILLUS RHAMNOSUS GG 1 CAPSULE. PO SCH ×2 (10:12→21:15)
[2021-10-02] MEDS: LISINOPRIL 20 MG TABLET PO SCH (10:13)
[2021-10-02] MEDS: ASPIRIN CHEWABLE 81 MG TABLET. PO SCH (10:13)
[2021-10-02] MEDS: NYSTATIN TOPICAL POWDER 15GM BOTTLE. TP SCH ×2 (10:14→21:15)
[2021-10-02 10:27] VITALS: BP 107/30
--- NOTE | 2021-10-02 14:20 | PDOC ---
[facility] [facility] PROGRESS NOTE Date of Service DOS: Late entry October 01 Chief Complaint Chief Complaint Anemia secondary to acute postoperative blood loss Rectovaginal fistula and Acute abdominal pain. 09/22: Status post bilateral ureteral stent placement laparoscopic converted to open lysis of adhesions Tsang man's procedure and small bowel resection left quadrant colostomy Microcytic anemia - not DEWAYNE. Will type and screen post-op tobacco use disorder Dm2, insulin Hypokalemia - due to poor po Severe protein calorie malnutrition - l HLD - HTN - General surgery consult, coroner consult IV abx History of Present Illness History of Present Illness 10/01 Evaluated examined at bedside. Still having pretty ill pain. Blood transfusion today. Otherwise continue current plan. 09/30, has burning pain, will try tucks pads to lazaro area. will check UA. she reports she was not taking hydralazine or HCTZ, will stop cont TPN, almost no po intake, follow nutirtion, still havign a lot of pain, on VOLLEYBALL REFEREE, wean as able \ 09/29 Patient evaluated examined at bedside. Resting in bed. Continues to need Dilaudid VOLLEYBALL REFEREE. Still on IV antibiotics. Surgical team following. Continue PT OT diet as tolerated. Will need placement after discharge. 09/28, pain and nausea cont current OOB to chair as able 09/27/2021 No acute events overnight. Patient seen examined bedside. Saturating 95% on 2 L nasal cannula. AF and VSS. Pending hemoglobin levels. Able to sit on the side of the bed. She still needs help transitioning to recliner with physical therapy. Tolerating clears. Diet per surgery. Still on VOLLEYBALL REFEREE Dilaudid and will attempt to transition to p.o. pain medications. 09/26/2021 No acute events overnight. Patient seen examined bedside. Status post 1 unit PRBC transfusion. Hemoglobin is 7.1 today. We will repeat hemoglobin levels tomorrow. Patient tolerating NG tube clamped. Will DC today and increase activity. Patient's chart, labs, images were reviewed and discussed with RN 09/25/2021 No acute events overnight. Patient seen examined bedside. Resting comfortably. Postop day 3. Hemoglobin of 5.7. Pending 1 unit PRBC transfusion. Pending chest x-ray. Patient's chart, labs, images were reviewed and discussed with RN 09/24/21 No acute events overnight. Postoperative day 2. AF and VSS. Saturating 96% on 2 L nasal cannula. Ostomy is functioning well. Pain is well controlled. Patient is resting comfortably in bed. Patient's chart, labs, images were reviewed and discussed with RN 09/23: Transferred to ICU for supportive care postoperatively. K5.5, Hb 7.6, bl ood pressure low 80/50. Left hip pain, she thinks is positional. Bicarb, albumin, and levophed ordered. 09/22: To OR: Status post bilateral ureteral stent placement laparoscopic converted to open lysis of adhesions Esparza's procedure and small bowel resect ion left quadrant colostomy 09/21: No acute events overnight. Patient seen examined bedside. Still receiving IV TPN. AF and VSS. Coordination for OR on Monday with urology and gynecology and general surgery for perforated diverticulitis and colovaginal fistula. 09/20: Patient seen and examined at bedside this morning sitting upright in NAD. Patient receiving TPN. Plan for surgery monday, waiting on [place] to see her today 09/19: Gen Surg plans sigmoid colectomy, with temporary ileostomy. Vitals/I&O Vitals/I&O: Vital Signs Date Time Temp Pulse Resp B/P (MAP) Pulse Ox O2 Delivery O2 Flow Rate FiO2 10/02/21 12:07 92 Room Air 2.0 10/02/21 10:27 97.9 64 18 107/30 (55) 97.9 I & O 10/01/21 10/01/21 10/02/21 15:00 23:00 07:00 Intake Total 245 ml 450 ml 50 ml Output Total 1025 ml Balance 245 ml -575 ml 50 ml Physical Exam General: Alert, Oriented X3, Cooperative, No acute distress Heart: Regular rate, Normal S1, Normal S2, No murmurs Lungs: Clear Abdomen: Soft, No tenderness, Other (ostomy fxn) Extremities: No cyanosis, No edema, Normal pulses Skin: No significant lesion Labs Labs: Laboratory Tests Test 10/01/21 17:34 10/02/21 07:10 Glucose (Fingerstick) 89 mg/dL (70-99) Hemoglobin 7.9 g/dL (12.0-15.5) Hematocrit 25.6 % (36.0-47.0) Mean Corpuscular Hemoglobin Concent 31 g/dL (31-37) Comment Review of Relevant I have reviewed the following items qasim (where applicable) has been applied. Medications: Current Medications Medications (Trade) Dose Ordered Sig/Gael Route PRN Reason Start Time Stop Time Status Last Admin Dose Admin Lactobacillus Rhamnosus (Culturelle) 1 cap BID PO 10/01/21 21:00 10/02/21 10:12 Justifications for Admission Other Justification Perforated diverticulitis VERONICA MUÑIZ MD Oct 02, 2021 14:20
[2021-10-02 14:55] VITALS: BP 123/38
--- NOTE | 2021-10-02 14:58 | PDOC ---
SURGICAL PROGRESS NOTE DATE: 10/02/21 TIME: 14:57 Subjective Pt feels better today, eating better, working with therapy Vital Signs Vital Signs Date Time Temp Pulse Resp B/P (MAP) Pulse Ox O2 Delivery O2 Flow Rate FiO2 10/02/21 12:07 92 Room Air 2.0 10/02/21 10:27 97.9 64 18 107/30 (55) 97.9 I&O Intake and Output 10/02/21 07:00 Intake Total 745 ml Output Total 1025 ml Balance -280 ml Intake Oral 730 ml Blood Product IV Normal Saline Flush 15 ml Output Urine Total 1025 ml PATIENT HAS A GRIGGS: Yes (d/c in AM as 10 days since surgery and concern for fistula disease) General: Alert, Oriented X3, Cooperative, No acute distress Abdomen: Soft, No tenderness, Other (colostomy fxn) Labs Laboratory Tests Test 10/01/21 05:15 10/01/21 17:34 10/02/21 07:10 White Blood Count 10.3 x10^3/uL (4.0-11.0) Red Blood Count 2.68 x10^6/uL (3.50-5.40) Hemoglobin 6.4 g/dL (12.0-15.5) 7.9 g/dL (12.0-15.5) Hematocrit 20.0 % (36.0-47.0) 25.6 % (36.0-47.0) Mean Corpuscular Volume 75 fL (79-100) Mean Corpuscular Hemoglobin 24 pg (25-35) Mean Corpuscular Hemoglobin Concent 32 g/dL (31-37) 31 g/dL (31-37) Red Cell Distribution Width 18.6 % (11.5-14.5) Platelet Count 464 x10^3/uL (140-400) Neutrophils (%) (Auto) 75 % (31-73) Lymphocytes (%) (Auto) 13 % (24-48) Monocytes (%) (Auto) 8 % (0-9) Eosinophils (%) (Auto) 4 % (0-3) Basophils (%) (Auto) 1 % (0-3) Neutrophils # (Auto) 7.7 x10^3/uL (1.8-7.7) Lymphocytes # (Auto) 1.3 x10^3/uL (1.0-4.8) Monocytes # (Auto) 0.8 x10^3/uL (0.0-1.1) Eosinophils # (Auto) 0.4 x10^3/uL (0.0-0.7) Basophils # (Auto) 0.1 x10^3/uL (0.0-0.2) Sodium Level 141 mmol/L (136-145) Potassium Level 4.4 mmol/L (3.5-5.1) Chloride Level 107 mmol/L (98-107) Carbon Dioxide Level 28 mmol/L (21-32) Anion Gap 6 (6-14) Blood Urea Nitrogen 15 mg/dL (7-20) Creatinine 0.8 mg/dL (0.6-1.0) Estimated GFR (Cockcroft-Gault) 71.1 BUN/Creatinine Ratio 19 (6-20) Glucose Level 91 mg/dL (70-99) Calcium Level 8.6 mg/dL (8.5-10.1) Total Bilirubin 0.2 mg/dL (0.2-1.0) Aspartate Amino Transf (AST/SGOT) 27 U/L (15-37) Alanine Aminotransferase (ALT/SGPT) 51 U/L (14-59) Alkaline Phosphatase 141 U/L (46-116) Total Protein 5.6 g/dL (6.4-8.2) Albumin 1.6 g/dL (3.4-5.0) Albumin/Globulin Ratio 0.4 (1.0-1.7) Glucose (Fingerstick) 89 mg/dL (70-99) Laboratory Tests Test 10/01/21 17:34 10/02/21 07:10 Glucose (Fingerstick) 89 mg/dL (70-99) Hemoglobin 7.9 g/dL (12.0-15.5) Hematocrit 25.6 % (36.0-47.0) Mean Corpuscular Hemoglobin Concent 31 g/dL (31-37) Assessment/Plan s/p navneet's plan d/c mary in AM YONGT OOB d/c planning. Justicifation of Admission Dx: Justifications for Admission: Justification of Admission Dx: Yes Sepsis: Infection ARLETTE WAY MD Oct 02, 2021 14:58
[2021-10-02] MEDS: INSULIN LISPRO 300 UNITS/3 ML VIAL. SQ SCH (16:00)
[2021-10-02] MEDS: MICAFUNGIN 100 MG in IV DEXTROSE 5% 100ML 100 ML IV SCH (17:11)
[2021-10-02] MEDS: IV NORMAL SALINE 1000ML BAG 1,000 ML IV SCH (17:45)
[2021-10-02 19:00] VITALS: BP 112/41
[2021-10-02] MEDS: ATORVASTATIN CALCIUM 20 MG TABLET PO SCH (21:15)
[2021-10-02] MEDS: ENOXAPARIN 40 MG/0.4 ML SYRINGE. SQ SCH (21:18)
[2021-10-02 23:00] VITALS: BP 138/54
[2021-10-03] MEDS: PIPERACILLIN/TAZOBACTAM 3.375 GM in IV NORMAL SALINE 50ML 50 ML IV SCH ×3 (00:12→13:12)
[2021-10-03 03:00] VITALS: BP 146/55
[2021-10-03] MEDS: PANTOPRAZOLE 40 MG TABLET.DR. PO SCH (06:39)
[2021-10-03 07:15] VITALS: BP 128/61
[2021-10-03] MEDS: LISINOPRIL 20 MG TABLET PO SCH (08:45)
[2021-10-03] MEDS: ASPIRIN CHEWABLE 81 MG TABLET. PO SCH (08:45)
[2021-10-03] MEDS: DOCUSATE SODIUM 100 MG CAPSULE. PO SCH ×2 (08:45→20:35)
[2021-10-03] MEDS: LACTOBACILLUS RHAMNOSUS GG 1 CAPSULE. PO SCH ×2 (08:45→20:35)
[2021-10-03] MEDS: NYSTATIN TOPICAL POWDER 15GM BOTTLE. TP SCH ×2 (08:46→21:03)
[2021-10-03] MEDS: oxyCODONE/APAP 5/325 1 TAB TABLET PO PRN (08:50)
[2021-10-03 11:08] VITALS: BP 96/52
[2021-10-03 14:16] VITALS: BP_SYST 105; BP_SYST 106; BP_DIAS 34; BP_DIAS 42
--- NOTE | 2021-10-03 14:34 | PDOC ---
SURGICAL PROGRESS NOTE DATE: 10/03/21 TIME: 14:32 Subjective Pt doing well, miguel diet and increasing, hernandez out and voiding, Vital Signs Vital Signs Date Time Temp Pulse Resp B/P (MAP) Pulse Ox O2 Delivery O2 Flow Rate FiO2 10/03/21 14:16 47 18 105/34 (57) 100 Room Air 10/03/21 11:08 98.7 98.7 10/03/21 08:00 2.0 I&O Intake and Output 10/03/21 07:00 Intake Total 600 ml Output Total 500 ml Balance 100 ml Intake Oral 600 ml Output Urine Total 500 ml PATIENT HAS A HERNANDEZ: No General: Alert, Oriented X3, Cooperative, No acute distress Abdomen: Soft, No tenderness, Other (ostomy fxn) Labs Laboratory Tests Test 10/01/21 17:34 10/02/21 07:10 10/02/21 16:26 Glucose (Fingerstick) 89 mg/dL (70-99) 91 mg/dL (70-99) Hemoglobin 7.9 g/dL (12.0-15.5) Hematocrit 25.6 % (36.0-47.0) Mean Corpuscular Hemoglobin Concent 31 g/dL (31-37) Laboratory Tests Test 10/02/21 16:26 Glucose (Fingerstick) 91 mg/dL (70-99) Assessment/Plan s/p navneet's doing well hernandez out off IV pain meds d/c abx given completed course Ok to d/c home when OK with others, if appropriate Justicifation of Admission Dx: Justifications for Admission: Justification of Admission Dx: Yes Sepsis: Infection ARLETTE WAY MD Oct 03, 2021 14:34
[2021-10-03] MEDS: MORPHINE SULFATE 2 MG/ML INJ. IVP PRN (15:53)
[2021-10-03] MEDS: INSULIN LISPRO 300 UNITS/3 ML VIAL. SQ SCH (16:00)
[2021-10-03] MEDS: MICAFUNGIN 100 MG in IV DEXTROSE 5% 100ML 100 ML IV SCH (17:43)
--- NOTE | 2021-10-03 18:07 | PDOC ---
[employer] [facility] PROGRESS NOTE Date of Service DOS: October 02 late entry Chief Complaint Chief Complaint Anemia secondary to acute postoperative blood loss Rectovaginal fistula and Acute abdominal pain. 09/22: Status post bilateral ureteral stent placement laparoscopic converted to open lysis of adhesions Tsang man's procedure and small bowel resection left quadrant colostomy Microcytic anemia - not DEWAYNE. Will type and screen post-op tobacco use disorder Dm2, insulin Hypokalemia - due to poor po Severe protein calorie malnutrition - l HLD - HTN - General surgery consult, lab tech consult IV abx History of Present Illness History of Present Illness 10/02 Evaluated examined at bedside. Doing well notably improving. Continue current plan. Surgery following. Possible discharge this coming week. 10/01 Evaluated examined at bedside. Still having pretty ill pain. Blood transfusion today. Otherwise continue current plan. 09/30, has burning pain, will try tucks pads to lazaro area. will check UA. she reports she was not taking hydralazine or HCTZ, will stop cont TPN, almost no po intake, follow nutirtion, still havign a lot of pain, on SENIOR IT ENGINEER, wean as able \ 09/29 Patient evaluated examined at bedside. Resting in bed. Continues to need Dilaudid SENIOR IT ENGINEER. Still on IV antibiotics. Surgical team following. Continue PT OT diet as tolerated. Will need placement after discharge. 09/28, pain and nausea cont current OOB to chair as able 09/27/2021 No acute events overnight. Patient seen examined bedside. Saturating 95% on 2 L nasal cannula. AF and VSS. Pending hemoglobin levels. Able to sit on the side of the bed. She still needs help transitioning to recliner with physical therapy. Tolerating clears. Diet per surgery. Still on SENIOR IT ENGINEER Dilaudid and will attempt to transition to p.o. pain medications. 09/26/2021 No acute events overnight. Patient seen examined bedside. Status post 1 unit PRBC transfusion. Hemoglobin is 7.1 today. We will repeat hemoglobin levels tomorrow. Patient tolerating NG tube clamped. Will DC today and increase activity. Patient's chart, labs, images were reviewed and discussed with RN 09/25/2021 No acute events overnight. Patient seen examined bedside. Resting comfortably. Postop day 3. Hemoglobin of 5.7. Pending 1 unit PRBC transfusion. Pending chest x-ray. Patient's chart, labs, images were reviewed and discussed with RN 09/24/21 No acute events overnight. Postoperative day 2. AF and VSS. Saturating 96% on 2 L nasal cannula. Ostomy is functioning well. Pain is well controlled. Patient is resting comfortably in bed. Patient's chart, labs, images were reviewed and discussed with RN 09/23: Transferred to ICU for supportive care postoperatively. K5.5, Hb 7.6, blood pressure low 80/50. Left hip pain, she thinks is positional. Bicarb, albumin, and levophed ordered. 09/22: To OR: Status post bilateral ureteral stent placement laparoscopic converted to open lysis of adhesions Esparza's procedure and small bowel resection left quadrant colostomy 09/21: No acute events overnight. Patient seen examined bedside. Still receiving IV TPN. AF and VSS. Coordination for OR on Monday with urology and gynecology and general surgery for perforated diverticulitis and colovaginal fistula. 09/20: Patient seen and examined at bedside this morning sitting upright in NAD. Patient receiving TPN. Plan for surgery monday, waiting on [place] to see her today 09/19: Gen Surg plans sigmoid colectomy, with temporary ileostomy. Vitals/I&O Vitals/I&O: Vital Signs Date Time Temp Pulse Resp B/P (MAP) Pulse Ox O2 Delivery O2 Flow Rate FiO2 10/03/21 14:16 47 18 105/34 (57) 100 Room Air 10/03/21 11:08 98.7 98.7 10/03/21 08:00 2.0 I & O 10/02/21 10/02/21 10/03/21 15:00 23:00 07:00 Intake Total 480 ml 120 ml Output Total 150 ml 350 ml Balance 480 ml -30 ml -350 ml Physical Exam General: Alert, Oriented X3, Cooperative, No acute distress Heart: Regular rate, Normal S1, Normal S2, No murmurs Lungs: Clear Abdomen: Soft, No tenderness, Other (ostomy fxn) Extremities: No cyanosis, No edema, Normal pulses Skin: No significant lesion Comment Review of Relevant I have reviewed the following items qasim (where applicable) has been applied. Justifications for Admission Other Justification Perforated diverticulitis VERONICA MUÑIZ MD Oct 03, 2021 18:07
--- NOTE | 2021-10-03 18:09 | PDOC ---
[employer] [facility] PROGRESS NOTE Date of Service DOS: DATE: 10/03/21 TIME: 18:08 Chief Complaint Chief Complaint Anemia secondary to acute postoperative blood loss Rectovaginal fistula and Acute abdominal pain. 09/22: Status post bilateral ureteral stent placement laparoscopic converted to open lysis of adhesions Esparza's procedure and small bowel resection left quadrant colostomy Microcytic anemia - not DEWAYNE. Will type and screen post-op tobacco use disorder Dm2, insulin Hypokalemia - due to poor po Severe protein calorie malnutrition - l HLD - HTN - General surgery consult, button sewing machine operator consult IV abx History of Present Illness History of Present Illness 10/03 Evaluated examined at bedside. DC antimicrobials today. Continued improvement. Should be able to discharge early this week 10/02 Evaluated examined at bedside. Doing well notably improving. Continue current plan. Surgery following. Possible discharge this coming week. 10/01 Evaluated examined at bedside. Still having pretty ill pain. Blood transfusion today. Otherwise continue current plan. 09/30, has burning pain, will try tucks pads to lazaro area. will check UA. she reports she was not taking hydralazine or HCTZ, will stop cont TPN, almost no po intake, follow nutirtion, still havign a lot of pain, on HYDROCHLORIC AREA SUPERVISOR, wean as able \ 09/29 Patient evaluated examined at bedside. Resting in bed. Continues to need Dilaudid HYDROCHLORIC AREA SUPERVISOR. Still on IV antibiotics. Surgical team following. Continue PT OT diet as tolerated. Will need placement after discharge. 09/28, pain and nausea cont current OOB to chair as able 09/27/2021 No acute events overnight. Patient seen examined bedside. Saturating 95% on 2 L nasal cannula. AF and VSS. Pending hemoglobin levels. Able to sit on the side of the bed. She still needs help transitioning to recliner with physical therapy. Tolerating clears. Diet per surgery. Still on HYDROCHLORIC AREA SUPERVISOR Dilaudid and will attempt to transition to p.o. pain medications. 09/26/2021 No acute events overnight. Patient seen examined bedside. Status post 1 unit PRBC transfusion. Hemoglobin is 7.1 today. We will repeat hemoglobin levels tomorrow. Patient tolerating NG tube clamped. Will DC today and increase activity. Patient's chart, labs, images were reviewed and discussed with RN 09/25/2021 No acute events overnight. Patient seen examined bedside. Resting comfortably. Postop day 3. Hemoglobin of 5.7. Pending 1 unit PRBC transfusion. Pending chest x-ray. Patient's chart, labs, images were reviewed and discussed with RN 09/24/21 No acute events overnight. Postoperative day 2. AF and VSS. Saturating 96% on 2 L nasal cannula. Ostomy is functioning well. Pain is well controlled. Patient is resting comfortably in bed. Patient's chart, labs, images were reviewed and discussed with RN 09/23: Transferred to ICU for supportive care postoperatively. K5.5, Hb 7.6, blood pressure low 80/50. Left hip pain, she thinks is positional. Bicarb, albumin, and levophed ordered. 09/22: To OR: Status post bilateral ureteral stent placement laparoscopic converted to open lysis of adhesions Esparza's procedure and small bowel resection left quadrant colostomy 09/21: No acute events overnight. Patient seen examined bedside. Still receiving IV TPN. AF and VSS. Coordination for OR on Monday with urology and gynecology and general surgery for perforated diverticulitis and colovaginal fistula. 09/20: Patient seen and examined at bedside this morning sitting upright in NAD. Patient receiving TPN. Plan for surgery monday, waiting on [place] to see her today 09/19: Gen Surg plans sigmoid colectomy, with temporary ileostomy. Vitals/I&O Vitals/I&O: Vital Signs Date Time Temp Pulse Resp B/P (MAP) Pulse Ox O2 Delivery O2 Flow Rate FiO2 10/03/21 14:16 47 18 105/34 (57) 100 Room Air 10/03/21 11:08 98.7 98.7 10/03/21 08:00 2.0 I & O 10/02/21 10/02/21 10/03/21 15:00 23:00 07:00 Intake Total 480 ml 120 ml Output Total 150 ml 350 ml Balance 480 ml -30 ml -350 ml Physical Exam General: Alert, Oriented X3, Cooperative, No acute distress Heart: Regular rate, Normal S1, Normal S2, No murmurs Lungs: Clear Abdomen: Soft, No tenderness, Other (ostomy fxn) Extremities: No cyanosis, No edema, Normal pulses Skin: No significant lesion Comment Review of Relevant I have reviewed the following items qasim (where applicable) has been applied. Justifications for Admission Other Justification Perforated diverticulitis VERONICA MUÑIZ MD Oct 03, 2021 18:08
[2021-10-03 19:00] VITALS: BP 110/40
[2021-10-03] MEDS: ATORVASTATIN CALCIUM 20 MG TABLET PO SCH (20:35)
[2021-10-03] MEDS: ENOXAPARIN 40 MG/0.4 ML SYRINGE. SQ SCH (20:36)
[2021-10-03 23:00] VITALS: BP 132/84
[2021-10-04] MEDS: oxyCODONE/APAP 5/325 1 TAB TABLET PO PRN ×3 (02:28→20:32)
[2021-10-04 03:00] VITALS: BP 156/49
[2021-10-04] MEDS: PANTOPRAZOLE 40 MG TABLET.DR. PO SCH (06:28)
[2021-10-04 07:00] VITALS: BP 163/61
--- NOTE | 2021-10-04 08:41 | PDOC ---
SURGICAL PROGRESS NOTE DATE: 10/04/21 TIME: 08:38 Subjective doing well tolerating diet, does have low appetite no n/v wanting to go home Vital Signs Vital Signs Date Time Temp Pulse Resp B/P (MAP) Pulse Ox O2 Delivery O2 Flow Rate FiO2 10/04/21 07:00 97.9 55 8 163/61 (95) 93 Room Air 97.9 10/03/21 08:00 2.0 I&O Intake and Output 10/04/21 07:00 Intake Total 240 ml Output Total 575 ml Balance -335 ml Intake Oral 240 ml Output Urine Total 375 ml Stool Total 200 ml # Voids 3 General: Alert, Oriented X3, Cooperative Abdomen: Soft, Other (ostomy functioning, incision intact ) Labs Laboratory Tests Test 10/02/21 16:26 Glucose (Fingerstick) 91 mg/dL (70-99) Problem List pt wants to now go home, would recommend HH if that is the plan DC planning in progress Justicifation of Admission Dx: Justifications for Admission: Justification of Admission Dx: Yes Sepsis: Infection FARIBA SMALL TRACE EVIDENCE TECHNICIAN Oct 04, 2021 08:41
[2021-10-04] MEDS: NYSTATIN TOPICAL POWDER 15GM BOTTLE. TP SCH ×2 (09:00→20:45)
[2021-10-04] MEDS: LACTOBACILLUS RHAMNOSUS GG 1 CAPSULE. PO SCH ×2 (09:19→20:31)
[2021-10-04] MEDS: DOCUSATE SODIUM 100 MG CAPSULE. PO SCH ×2 (09:19→20:31)
[2021-10-04] MEDS: LISINOPRIL 20 MG TABLET PO SCH (09:20)
[2021-10-04] MEDS: ASPIRIN CHEWABLE 81 MG TABLET. PO SCH (09:20)
--- NOTE | 2021-10-04 10:19 | PDOC ---
Date of Service: DATE: 10/04/21 TIME: 10:16 Subjective: Subjective: Doing better - ostomy functioning, eating some, unhooked from IVs, no urinary symptoms, drain removed - does still c/o rectal/vaginal irritation, says staff checks and applies cream. Preference is to DC to home, possibly w/ home health - says her sister is coming to stay. Didn't remember previous conversations about outpt scopes - says that scares her. Objective: Vital Signs: Vital Signs Date Time Temp Pulse Resp B/P (MAP) Pulse Ox O2 Delivery O2 Flow Rate FiO2 10/04/21 09:26 20 94 Room Air 10/04/21 09:20 55 163/61 10/04/21 07:00 97.9 97.9 10/03/21 08:00 2.0 Labs: CULTURE URINE Final GREATER THAN 100,000 CFU/ML BENNIE ALBICANS on 10/02/21 at 1240. NO FURTHER WORKUP [place] [address] global risk management director: Blessing Barahona MD Organism 1 BENNIE ALBICANS PE: GEN: NAD - voice stronger LUNGS: CTAB HEART: RRR ABD: soft, ostomy w/ stool NEURO/PSYCH: A & O 3 A/P: S/p resection/ostomy (perf diverticulitis, fistulas) DEWAYNE -- Getting better. Dc per primary/surgery. Eventually needs EGD and colonoscopy re: DEWAYNE - reminded her of this. Would continue PPI, consider addition of iron. Justicifation of Admission Dx: Justifications for Admission: Justification of Admission Dx: Yes Sepsis: Infection ALEXSANDER TAFOYA Oct 04, 2021 10:19
[2021-10-04 11:00] VITALS: BP 145/53
--- NOTE | 2021-10-04 11:30 | NUR ---
SW following. Discussed with RN, pt from home. Per Case Management note referral faxed to [facility] and [facility]. SW spoke with pt, pt actually wanting to go home with home health. Wound care notified SW that pt will need a home health company with an furniture repairer. Mine Levine RN notified of referral. Pt has no home health preference. Awaiting acceptance decision and anticipated discharge date. Pt concerned about not having had any teaching of how to care for her ostomy at home. SW will continue to follow.
[2021-10-04 15:00] VITALS: BP 142/83
--- NOTE | 2021-10-04 15:30 | NUR ---
WOUND CARE: I saw this patient to reassess the ostomy bag that we applied last , also to reassess her coccyx/post thighs/vaginal areas, the Diflucan, powder, cooling chux have helped greatly in healing. Patient is in a great mood, very talkative but does have some concerns for her return home. Patient reminded that she would have 13/02 resources available to her regarding her new ostomy. She will dc with ostomy HHRN and we are enrolling her in a FREE PROGRAM offered to her from [facility] re: ostomy supplies. Wound care will finish this enrollment tomorrow for this patient.
[2021-10-04] MEDS: INSULIN LISPRO 300 UNITS/3 ML VIAL. SQ SCH (16:00)
[2021-10-04] MEDS: MICAFUNGIN 100 MG in IV DEXTROSE 5% 100ML 100 ML IV SCH (17:27)
[2021-10-04 19:00] VITALS: BP 98/55
[2021-10-04] MEDS: ATORVASTATIN CALCIUM 20 MG TABLET PO SCH (20:31)
[2021-10-04] MEDS: ENOXAPARIN 40 MG/0.4 ML SYRINGE. SQ SCH (20:33)
[2021-10-04 23:00] VITALS: BP 135/40
[2021-10-05 03:00] VITALS: BP 124/62
[2021-10-05] MEDS: PANTOPRAZOLE 40 MG TABLET.DR. PO SCH (06:15)
[2021-10-05] MEDS: oxyCODONE/APAP 5/325 1 TAB TABLET PO PRN (06:16)
[2021-10-05 07:00] VITALS: BP 144/88
[2021-10-05] MEDS: ASPIRIN CHEWABLE 81 MG TABLET. PO SCH (08:34)
[2021-10-05] MEDS: LISINOPRIL 20 MG TABLET PO SCH (08:34)
[2021-10-05] MEDS: DOCUSATE SODIUM 100 MG CAPSULE. PO SCH (08:34)
[2021-10-05] MEDS: LACTOBACILLUS RHAMNOSUS GG 1 CAPSULE. PO SCH (08:34)
[2021-10-05] MEDS: NYSTATIN TOPICAL POWDER 15GM BOTTLE. TP SCH (08:35)
--- NOTE | 2021-10-05 09:01 | PDOC ---
SURGICAL PROGRESS NOTE DATE: 10/05/21 TIME: 09:00 Subjective urinating with catheter out worried about ostomy care wants to go home with home health Vital Signs Vital Signs Date Time Temp Pulse Resp B/P (MAP) Pulse Ox O2 Delivery O2 Flow Rate FiO2 10/05/21 08:34 63 144/88 10/05/21 08:32 98 Nasal Cannula 2.0 10/05/21 07:00 98.1 16 98.1 I&O Intake and Output 10/05/21 07:00 Intake Total 100 ml Output Total 200 ml Balance -100 ml Intake Oral 100 ml Stool Total 200 ml # Voids 2 General: Alert, Oriented X3, Cooperative Abdomen: Soft Problem List dc planning Justicifation of Admission Dx: Justifications for Admission: Justification of Admission Dx: Yes Sepsis: Infection FARIBA SMALL APRN Oct 05, 2021 09:01
[2021-10-05] MEDS ORDERED: FLUC200T6 PO (10:37)
[2021-10-05] MEDS ORDERED: OXYC1TAB15 PO (10:37)
--- NOTE | 2021-10-05 10:38 | PDOC ---
Date of Service: DATE: 10/05/21 TIME: 10:37 Subjective: Subjective: Feels fine, wants to go home. Eating, ostomy functioning, getting up and moving around more and more. Objective: Vital Signs: Vital Signs Date Time Temp Pulse Resp B/P (MAP) Pulse Ox O2 Delivery O2 Flow Rate FiO2 10/05/21 08:34 63 144/88 10/05/21 08:32 98 Nasal Cannula 2.0 10/05/21 07:00 98.1 16 98.1 PE: GEN: NAD LUNGS: CTAB HEART: RRR ABD: S/ND/NT, stool in ostomy NEURO/PSYCH: A & O 3 A/P: S/p resection/ostomy (perf diverticulitis, fistulas) DEWAYNE -- Dc per primary/surgery. We'll call to schedule 'scopes. Justicifation of Admission Dx: Justifications for Admission: Justification of Admission Dx: Yes Sepsis: Infection ALEXSANDER TAFOYA Oct 05, 2021 10:38
--- NOTE | 2021-10-05 10:39 | SNU/HH DC ---
DISCHARGE WITH HOME HEALTH DISCHARGE INFORMATION: Discharge Date: Oct 05, 2021 Final Diagnosis: Rectovaginal fistula Condition on Discharge: Stable CODE STATUS: Code Status: Full HOME HEALTH: Face to Face: I certify this patient is under my care and that I, or a nurse practitioner or physician's medical assistant prn working with me, had a face to face encounter that meets the physician face to face encounter requirements with this patient on []. RN For Eval/Treatment: Yes Occupational Therapy For: Evaluation/Treatment Pt Meets Homebound Status: Poor coordination w/ amb., Unsteady balance w/ amb,, Extreme weakness w/ amb. POST DISCHARGE ORDERS: Activity Instructions for Disc: Activity as tolerated Weight Bearing Status after Di: As tolerated DIET AFTER DISCHARGE: Cardiac CHECKS AFTER DISCHARGE: Checks after discharge: Check blood press - daily TREATMENT/EQUIPMENT ORDERS: Adaptive Equipment Issued: Walker CERTIFICATION STATEMENT: Certification Statement: Certification Statement: Based on the above finding, I certify that this patient is confined to the home and needs intermittent assisted care, physical therapy and/or speech therapy, or continues to need occupational therapy.~ This patient is under my care, and I have initiated the establishment of the plan of care.~ This patient will be followed by myself or a community physician who will periodically review the plan of care. Home Meds Active Scripts Fluconazole (FLUCONAZOLE) 200 Mg Tablet, 1 TAB PO DAILY for uti for 7 Days, #7 TAB Prov:VERONICA MUÑIZ MD 10/05/21 Oxycodone/Apap 5-325 (PERCOCET 5-325 MG TABLET ) 1 Each Tablet, 1 TAB PO PRN Q4HRS PRN for PAIN for 10 Days, #30 TAB Prov:VERONICA MUÑIZ MD 10/05/21 Pantoprazole Sodium (PANTOPRAZOLE SODIUM ) 40 Mg Tablet.dr, 40 MG PO DAILYAC for . for 30 Days, #30 TAB.SR Prov:TIFFANIE NAILS III DO 08/02/21 Reported Medications Budesonide/Formoterol Fumarate (SYMBICORT 160-4.5 MCG INHALER) 10.2 Gm Hfa.aer.ad, 2 PUFF IH BID for inhaler, #1 INHALER 5 Refills 09/17/21 Albuterol Sulfate (PROAIR HFA INHALER) 8.5 Gm Hfa.aer.ad, 2 PUFF IH PRN Q4-6HRS PRN for wheezing for 21 Days, #1 INHALER 0 Refills 09/17/21 Polyethylene Glycol 3350 (MIRALAX) 17 Gm Powd.pack, 1 PKT PO DAILY for bowels, PKT 09/17/21 Docusate Sodium (COLACE) 100 Mg Capsule, 1 CAP PO BID for bowels for 15 Days, #30 CAP 0 Refills 09/17/21 Atorvastatin Calcium (ATORVASTATIN CALCIUM) 20 Mg Tablet, 20 MG PO HS for FOR CHOLESTEROL, #30 TAB 0 Refills 07/20/21 Lisinopril (LISINOPRIL) 20 Mg Tablet, 20 MG PO DAILY for FOR HYPERTENSION, #30 TAB 0 Refills 07/20/21 Aspirin (ASPIRIN) 81 Mg Tab.chew, 1 TAB PO DAILY for DVT prophylaxis, #30 TAB 3 Refills 07/20/21 Discontinued Reported Medications Clindamycin Hcl (CLINDAMYCIN HCL) 300 Mg Capsule, 300 MG PO TID for bowels, CAP 09/17/21 Vancomycin Hcl (VANCOMYCIN HCL) 125 Mg Capsule, 125 MG PO QID for diarrhea, CAP 09/17/21 Hydralazine Hcl (HYDRALAZINE HCL) 25 Mg Tablet, 25 MG PO DAILY for htn, TAB 09/17/21 Hydrochlorothiazide (HYDROCHLOROTHIAZIDE CAPSULE ) 12.5 Mg Capsule, 12.5 MG PO DAILY for DIURETIC, CAP 0 Refills 07/20/21 VERONICA MUÑIZ MD Oct 05, 2021 10:39
[2021-10-05 11:00] VITALS: BP 156/51
[2021-10-05] MEDS ORDERED: FLUCONAZOLE 100 MG TABLET. PO SCH (11:00)
--- NOTE | 2021-10-05 14:26 | NUR ---
Pt provided with information on home health, follow ups, and discharge instructions. Pt PICC line removed and taken by wheelchair to [facility] in ER parking lot
== END 2021-10-05 14:20 | disposition home health service (06) | DRG 329 ==
LOC: 5 SOUTH 18:06 → 4 SOUTHEST 09-20 20:52 → 1 WEST ICU 09-22 20:00 → 4 NORTH 09-23 17:15
PROVIDERS: ADMIT Internal Medicine; ATTEND Internal Medicine
PROC: 02HV33Z Insertion of Infusion Device into Superior Vena Cava, Percutaneous Approach (ICD-10-PCS; 2021-09-21)
PROC: 0D1N0Z4 Bypass Sigmoid Colon to Cutaneous, Open Approach (ICD-10-PCS; 2021-09-22)
PROC: 0DB80ZZ Excision of Small Intestine, Open Approach (ICD-10-PCS; 2021-09-22)
PROC: 0DJD4ZZ Inspection of Lower Intestinal Tract, Percutaneous Endoscopic Approach (ICD-10-PCS; 2021-09-22)
PROC: 0T788DZ Dilation of Bilateral Ureters with Intraluminal Device, Via Natural or Artificial Opening Endoscopic (ICD-10-PCS; principal; 2021-09-22 12:30)
DX: K57.20 Diverticulitis of large intestine with perforation and abscess without bleeding (principal); E43 Unspecified severe protein-calorie malnutrition; N32.1 Vesicointestinal fistula; D62 Acute posthemorrhagic anemia; D50.9 Iron deficiency anemia, unspecified; E11.51 Type 2 diabetes mellitus with diabetic peripheral angiopathy without gangrene; E78.5 Hyperlipidemia, unspecified; E87.6 Hypokalemia; F17.210 Nicotine dependence, cigarettes, uncomplicated; I10 Essential (primary) hypertension; K52.9 Noninfective gastroenteritis and colitis, unspecified; K66.0 Peritoneal adhesions (postprocedural) (postinfection); N89.8 Other specified noninflammatory disorders of vagina; Z20.822 Contact with and (suspected) exposure to COVID-19; Z53.31 Laparoscopic surgical procedure converted to open procedure; Z90.710 Acquired absence of both cervix and uterus; E83.51 Hypocalcemia; Z90.49 Acquired absence of other specified parts of digestive tract; E88.09 Other disorders of plasma-protein metabolism, not elsewhere classified; Z68.28 Body mass index [BMI] 28.0-28.9, adult; Z68.21 Body mass index [BMI] 21.0-21.9, adult
CPT/HCPCS: 36415; 36430; 36569; 36600; 71045; 74018; 80048; 80053; 81001; 82805; 82962; 83036; 83540; 83550; 83735; 84100; 84478; 85007; 85014; 85018; 85025; 85027; 86850; 86900; 86901; 86920; 87077; 87086; 87426; 87493; 88307; 94640; 94760; A4209; A4314; A4657; A4930; A6219; A6253; A6402; C1758; C1769; C9113; J0610; J1100; J1170; J1644; J1650; J1815; J1885; J2248; J2270; J2405; J2543; J2704; J2710; J3010; J3475; J3480; J3490; J7030; J7050; J7060; J7120; P9016; P9045; U0003; 97110-GO; 97110-GP; 97116-GP; 97530-GO; 97530-GP; 97535-GO; G0378; J7613; J7626